=== PATIENT | female | born 1955 | race Caucasian/White ===

== ENCOUNTER → 2016-12-13 | Outpatient (CLI) | payer BC ==
[2014-02-02 15:15] VITALS: BP 140/68
--- NOTE | 2016-12-13 09:20 | KCIC ---
PQRS Compliance Statement: One or more of the following individualized dose reduction techniques were utilized for this examination: 1. Automated exposure control 2. Adjustment of the mA and/or kV according to patient size 3. Use of iterative reconstruction technique Neck CT without contrast: 12/13/2016 Indication: Right neck lymphadenopathy. Technique: Multiple axial images were obtained through the neck without intravenous injection of contrast material. Comparison: None. Findings: Evaluation is limited by lack of intravenous contrast. There is a right level 3 cervical lymph node measuring 1.6 x 1.3 cm. There is a right level 4 lymph node measuring 2.0 x 1.5 cm. There is a right level 5 lymph node measuring 1.7 x 1.4 cm. There is an additional right level 5 lymph node measuring 1.7 x 1.4 cm. No cystic or necrotic changes are identified. No suggestion of extracapsular spread. There is a right superior paratracheal lymph node measuring 1.9 x 1.5 cm (series 2, image 76). There is a prevascular lymph node which measures 3.0 x 2.2 cm. There is masslike consolidation in the left upper lobe which measures 7.2 x 2.2 cm. This may represent a single consolidative mass versus mass with adjacent postobstructive atelectasis. There is mild cervical spondylosis. No suspicious osseous lesion is identified. The visualized brain parenchyma appears intact. The skull base is normal. The visualized paranasal sinuses and orbital contents are normal. The sella turcica and cavernous sinus regions appear intact. The mastoid air cells are normal. The fossa of Rosenmuller is normal. The parotid space contents and software configuration engineer space contents appear intact. The parapharyngeal spaces are normal. The submandibular and sublingual space contents appear intact. The epiglottis, aryepiglottic folds, and piriform sinuses are normal. The vallecula appears normal. The larynx and trachea are normal. The thyroid lobes appear intact. Impression: There is a 7.2 x 2.2 cm masslike area of consolidation in the left upper lobe which may represent a primary lung malignancy versus metastatic disease. There may be postobstructive atelectasis associated with the mass. There is prevascular, superior mediastinal, and right level 3, 4 and 5 cervical lymph nodes suspicious for khari metastasis. Critical results were discussed with the JUANA at Dr. Harmon's office at 9:10 AM on 12/13/2016. Electronically signed by: Loli Espinoza MD (12/13/2016 9:17 AM) [place] [id number]
== END | disposition home or self-care (01) ==
LOC: KCIC CT 08:13
PROVIDERS: ATTEND Family Medicine
DX: R59.1 Generalized enlarged lymph nodes (principal)
CPT/HCPCS: 70490

== ENCOUNTER 2017-01-09 09:56 | Day surgery (SDC) | payer BC ==
[~2017-01-09] VITALS: Ht 160 cm; Wt 83.5 kg
[~2017-01-09 09:56] MED LIST: ACET325T9 PO; ASPI325T8 PO; CHOL10003 PO; COLE625T12 PO; DOCU100T11 PO; GEMF600T3 PO; HYDR12.53 PO; HYDROmorphone 2 MG/ML VIAL IV PRN; IBUP100O24 PO; IV RINGERS,LACTATED 1000ML 1,000 ML IV SCH; LIDOCAINE 1% PF 2 ML VIAL. ID PRN; METF500T4 PO; MORPHINE SULFATE 2 MG/ML DISP.SYRIN. IV PRN; OMEG1CAP27 PO; ONDANSETRON PF 4 MG/2 ML VIAL. IV PRN; PROCHLORPERAZINE 10 MG/2 ML VIAL. IV PRN; SIMV10TA PO; fentaNYL PF VIAL 100 MCG/2 ML VIAL IV PRN
[2017-01-09] MEDS ORDERED: LIDOCAINE 2% PF Vial for OR 5 ML VIAL. ONE (11:02)
[2017-01-09] MEDS ORDERED: SEVOFLURANE 31 TO 60 MINUTES. IH ONE (11:02)
[2017-01-09] MEDS ORDERED: PROPOFOL 20 ML IV ONE (11:02)
[2017-01-09] MEDS ORDERED: BUPIVACAINE-EPI 0.25%-1:200000 50 ML VIAL. ONE (11:15)
[2017-01-09] MEDS ORDERED: DEXAMETHASONE SOD PHOS 20 MG/5 ML VIAL. ONE (11:50)
[2017-01-09] MEDS ORDERED: ONDANSETRON PF 4 MG/2 ML VIAL. ONE (11:50)
[2017-01-09] MEDS ORDERED: fentaNYL PF VIAL 100 MCG/2 ML VIAL ONE (12:04)
--- NOTE | 2017-01-09 12:19 | PDOC4 ---
Operative Note Operative Note Date: 01/09/2017 Preoperative diagnosis: Right neck mass Postoperative diagnosis: Same Procedure: Excision of mass Surgeon: Teodoro Specimen: Right neck lymph nodes Dictation: Patient is a 61 -year-old female long-term smoker found to have a mass within her lungs by CT scan also found to have enlarged lymph nodes or mass in the right neck procedure of excision of mass was explained to the patient detail was benefits were also discussed including bleeding infection alternatives to this procedure also discussed with the patient seemed understanding gave both verbal and written consent to have the procedure performed. Patient was taken to the operating room placed the supine position anesthesia was initiated and the patient was intubated with LMA her head was turned to the left exposing the right neck. Right neck was prepped and draped usual sterile fashion using ChloraPrep and area over the mass was injected with quarter percent Marcaine with epinephrine incision made 15 blade scalpel was carried down through the subcutaneous tissue using the cautery right hemostasis to the mass which was palpable. The mesh was excised sharply with scissors and electrocautery they're essentially 3 enlarged lymph nodes which were sent for pathology. Wound was irrigated and suctioned dry states deemed appropriate and the wound was closed in 2 layers a deep layer running 3-0 Vicryl and the skin was approximate 4 septic Monocryl Mastisol Steri-Strips and and island dressing were applied. Patient was waken next made in the operating room taken recovery in stable condition all sponge instrument needle counts listed as correct estimated blood loss 5 mL. Once in the stomach comes on the dictated op procedure on patient Faye Ramirez thank you VALENCIA MCCOY MD Jan 09, 2017 12:19
--- NOTE | 2017-01-09 12:20 | DISCH ---
DISCHARGE INSTRUCTIONS Condition on Discharge Condition on Discharge: Stable Activity After Discharge Activity Instructions for Disc: No restrictions Diet after Discharge Diet after Discharge: Regular Wound Incision Care Other wound/incision instructi: May shower in 24 hours Contacting the after DC Call your doctor for: If your condition worsens Follow-Up Follow up with: Dr Mccoy in 2 weeks VALENCIA MCCOY MD Jan 09, 2017 12:20
[2017-01-09 13:00] VITALS: BP 149/71
--- NOTE | 2017-01-11 13:38 | PATHOLOGY ---
PATHOLOGY REPORT * * * * * * * * FINAL DIAGNOSIS: Lymph nodes, right neck mass excisional biopsy: - METASTATIC ADENOCARCINOMA, MODERATELY DIFFERENTIATED. SEE COMMENT. COMMENT: Sections of the four lymph nodes appear similar and show extensive replacement by metastatic adenocarcinoma. The malignant glands are lined by columnar cells having ample amounts of pale vacuolated cytoplasm. The tumor cells have fairly uniform subnuclear vacuoles and also show supranuclear vacuoles. The malignant cells have enlarged, rounded to ovoid nuclei containing small nucleoli. There are focal areas of tumor necrosis. Mitotic figures are readily demonstrated. A limited panel of immunoperoxidase stains is obtained and yields the following results: Cytokeratin 7 (A3): Tumor cells positive Cytokeratin 20 (A3): Tumor cells negative Napsin A (A3): Tumor cells positive TTF-1 (A3): Tumor cells positive CDX2 (A3): Tumor cells negative CA125 (A3): Tumor cells negative The morphologic and immunophenotypic findings are supportive of the diagnosis of metastatic adenocarcinoma of pulmonary origin. The case is also examined by Dr. Aram Castrejon, who concurs with the diagnosis. (JPM:mgcarmen/evelyn; 01/11/2017) Special Stains: Immunoperoxidase stains for cytokeratin 7, cytokeratin 20, Napsin A, TTF-1, CDX2, and CA125 PROCEDURE REPORT (Order Date: 01/22/2017 00:00) COMMENT: The slides were marked for testing, and sent at the request of Dr. Pineda Oglesby. PD-L1 testing was performed by [facility] on block A3. Please see SCANNED IMAGES under LABORATORY for separate report of results. (JPM:ecc; d/t: 01/26/2017) PATHOLOGIST: Casimiro Langford M.D. REPORT ELECTRONICALLY SIGNED BY: Casimiro Langford M.D. DATE/TIME: 01/26/2017 15:47 PROCEDURE REPORT (Order Date: 01/23/2017 00:00) COMMENT: The slides were marked for testing, and sent at the request of Dr. Pineda Oglesby. ALK testing was performed by [facility] on block A3. Please see SCANNED IMAGES under LABORATORY for separate report of results. (IUV:amj; d/t: 01/30/2017) PATHOLOGIST: Stephanie Sanches M.D. REPORT ELECTRONICALLY SIGNED BY: Stephanie Sanches M.D. DATE/TIME: 01/30/2017 08:56 PROCEDURE REPORT (Order Date: 01/23/2017 00:00) COMMENT: The slides were marked for testing, and sent at the request of Dr. Pineda Oglesby. EGFR testing was performed by [facility] on block A3. Please see SCANNED IMAGES under LABORATORY for separate report of results. (IUV:amj; d/t: 01/30/2017) PATHOLOGIST: Stephanie Sanches M.D. REPORT ELECTRONICALLY SIGNED BY: Stephanie Sanches M.D. DATE/TIME: 01/30/2017 08:57 PROCEDURE REPORT (Order Date: 01/23/2017 00:00) COMMENT: The slides were marked for testing, and sent at the request of Dr. Pineda Oglesby. ROS1 testing was performed by [facility] on block A3. Please see SCANNED IMAGES under LABORATORY for separate report of results. (IUV:amovi; d/t: ) PATHOLOGIST: Stephanie Sanches M.D. REPORT ELECTRONICALLY SIGNED BY: Stephanie Sanches M.D. DATE/TIME: 01/30/2017 08:59 PROCEDURE REPORT (Order Date: 01/23/2017 00:00) COMMENT: The slides were marked for testing, and sent at the request of Dr. Pineda Oglesby. BRAF testing was performed by [facility] on block A3. Please see SCANNED IMAGES under LABORATORY for separate report of results. (IUV:amovi; d/t: 02/01/2017) PATHOLOGIST: Stephanie Sanches M.D. REPORT ELECTRONICALLY SIGNED BY: Stephanie Sanches M.D. DATE/TIME: 02/01/2017 09:13 REPORT ELECTRONICALLY SIGNED BY: Casimiro Langford M.D. DATE/TIME: 01/11/2017 13:37 * * * * * * * * GROSS PATHOLOGY: The specimen is received fresh, designated "Faye Delaney, right neck mass" and consists of four, rounded, rubbery firm segments of bright reddish brown focally nodular tissue. The segments show focal adherent pale yellow brown fatty tissue. The fatty tissue is trimmed away. The lymph nodes range from 0.9 up to 2.8 cm in maximum dimensions. Sectioning reveals a ruiz white, gritty appearing cut surface. Touch preparations are made from the largest two lymph nodes. Impact Hammer Operator sections from the lymph nodes are submitted in cassettes A1 through A3, with cassette A3 containing associate financial representative sections from two separate lymph nodes. (JPM; 01/09/17) INITIAL CPT CODE(S): A; 92718, 74338, 63590, 99352, 39909, 98229, 13074, 19614, 97014(2), 52788, 44564, 32576, 52150(2), 28253 Professional services performed [place] [facility] [address] Technical services performed by [facility] at [address] [place] [address], [facility] [address], [place] [address]. SPECIMEN(S) RECEIVED: A.Right neck mass CLINICAL HISTORY: Cervical lymphadenopathy, lung mass PATIENT: FAYE DELANEY /AGE: 406/16/1949 (Age: 67) PATIENT #: [id number] ALT CASE #: SPECIMEN COLLECTION DATE: 01/09/2017 SPECIMEN RECEIVED DATE: 01/09/2017 [facility] - [address] [place] [address] - PHONE: [phone] * * * END OF REPORT * * *
[2017-02-01] MEDS ORDERED: EZET1TAB35 PO (15:19)
[2017-02-01] MEDS ORDERED: ACET500T68 PO (15:19)
[2017-02-01] MEDS ORDERED: HYDR25TA9 PO (15:19)
== END 2017-01-09 13:14 | disposition home or self-care (01) ==
LOC: SURG 09:56
PROVIDERS: ATTEND Surgery
DX: C77.0 Secondary and unspecified malignant neoplasm of lymph nodes of head, face and neck (principal); C34.90 Malignant neoplasm of unspecified part of unspecified bronchus or lung; E78.00 Pure hypercholesterolemia, unspecified; I10 Essential (primary) hypertension; E11.9 Type 2 diabetes mellitus without complications; F17.210 Nicotine dependence, cigarettes, uncomplicated; M19.90 Unspecified osteoarthritis, unspecified site; Z88.2 Allergy status to sulfonamides; Z88.8 Allergy status to other drugs, medicaments and biological substances
CPT/HCPCS: 38500; 82962; 88305; 88341; 88342; J0690; J1100; J2405; J2704; J3010; 36415; 81325; 88271; 88275; 88360; 81235; J2001

== ENCOUNTER → 2017-02-01 | Outpatient (CLI) | payer BC ==
[2017-01-09 13:00] VITALS: BP 149/71
[~2017-02-01] MED LIST changes: +ACET500T68 PO; +EZET1TAB35 PO; +HYDR25TA9 PO; -HYDROmorphone 2 MG/ML VIAL IV PRN; -IV RINGERS,LACTATED 1000ML 1,000 ML IV SCH; -LIDOCAINE 1% PF 2 ML VIAL. ID PRN; -MORPHINE SULFATE 2 MG/ML DISP.SYRIN. IV PRN; -ONDANSETRON PF 4 MG/2 ML VIAL. IV PRN; -PROCHLORPERAZINE 10 MG/2 ML VIAL. IV PRN; -fentaNYL PF VIAL 100 MCG/2 ML VIAL IV PRN
--- NOTE | 2017-02-01 14:11 | RAD ---
FDG tumor localization scan, PET/CT, 02/01/2017: History: Initial staging of lung cancer Following IV injection of 12.1 mCi of 18 F-FDG, imaging was performed from the skull base to the proximal thighs. The noncontrast CT component was performed for attenuation correction and anatomic localization purposes rather than for primary diagnosis. The patient's blood glucose level at time of injection was 95 MG/DL. There is a large irregular soft tissue mass centered in the medial aspect of the left upper lobe. It extends down to the level of the hilum. This mass is hypermetabolic with a maximum SUV of 16. There is extensive hypermetabolic adenopathy in the mediastinum including a 4.7 cm subcarinal node demonstrate a maximum SUV of 7.5. There are mildly enlarged hypermetabolic lymph nodes in the lower neck, more so on the right. There is a small hypermetabolic subclavian region lymph node on the left. There are small hypermetabolic pleural or subpleural nodules present posteromedially in the mid chest. There is a 6 cm hypermetabolic left adrenal mass. It demonstrates a maximum SUV of approximately 17. There are small hypermetabolic retrocrural, para-aortic and pericaval lymph nodes in the abdomen. A small hypermetabolic mesenteric lymph node is present in the right lower quadrant. The uterus is lobulated in in contour, probably due to fibroids. It is not hypermetabolic. Incidental findings include the presence of cholelithiasis. There is a small umbilical hernia containing only fat. A small amount of pericardial fluid is present. IMPRESSION: 1. Large hypermetabolic left upper lobe pulmonary mass compatible with a primary lung malignancy. 2. Mediastinal, lower cervical, retrocrural, retroperitoneal and mesenteric hypermetabolic adenopathy on a metastatic basis. 3. Large hypermetabolic left adrenal mass presumably on a metastatic basis.
== END | disposition home or self-care (01) ==
LOC: PETSC 11:04
PROVIDERS: ATTEND Internal Medicine Hematology & Oncology
DX: C34.12 Malignant neoplasm of upper lobe, left bronchus or lung (principal); C79.72 Secondary malignant neoplasm of left adrenal gland; K80.20 Calculus of gallbladder without cholecystitis without obstruction; K42.9 Umbilical hernia without obstruction or gangrene; E27.9 Disorder of adrenal gland, unspecified
CPT/HCPCS: 78815; A9552

== ENCOUNTER → 2017-02-02 | Outpatient (CLI) | payer BC ==
[2017-01-09 13:00] VITALS: BP 149/71
[~2017-02-02] MED LIST changes: +GADOBUTROL 7.5 MMOL/7.5 ML VIAL IV ONE
--- NOTE | 2017-02-02 11:39 | RAD ---
EXAM: Brain MRI with and without contrast. HISTORY: Lung cancer staging. TECHNIQUE: Multiplanar, multisequence magnetic resonance imaging of the brain was performed prior to and following the administration of 7.5 cc Gadavist intravenous contrast. COMPARISON: None. FINDINGS: There is no restricted diffusion to suggest acute or subacute infarction. There is no susceptibility effect to suggest hemorrhage. There is no mass effect or midline shift. There is no hydrocephalus. There are few tiny scattered foci of T2/FLAIR hyperintensity within the cerebral white matter, a nonspecific finding. The orbits are unremarkable. There is mild posterior left ethmoid sinus mucosal thickening. The mastoid air cells are clear. There are normal flow voids within the cerebral vessels. No suspicious enhancing lesion is seen. IMPRESSION: 1. No acute intracranial finding or evidence of intracranial metastatic disease. 2. Few tiny foci of signal change within the cerebral white matter, a nonspecific finding which is most commonly seen with chronic small vessel disease or chronic migraine headaches. Electronically signed by: Annette Solomon MD (02/02/2017 11:37 AM) [id number]
== END | disposition home or self-care (01) ==
LOC: MRI 09:55
PROVIDERS: ATTEND Internal Medicine Hematology & Oncology
DX: C34.12 Malignant neoplasm of upper lobe, left bronchus or lung (principal); G43.909 Migraine, unspecified, not intractable, without status migrainosus; I73.9 Peripheral vascular disease, unspecified
CPT/HCPCS: 70553; A9585

== ENCOUNTER → 2017-05-07 | Outpatient (CLI) | payer BC ==
[2017-05-07] MEDS: IOHEXOL 300 MG/ML 100ML VIAL. IV (11:33)
[2017-05-07] MEDS: IOHEXOL 240 MG/ML 50ML VIAL. PO (11:33)
== END | disposition home or self-care (01) ==
LOC: CT 09:55
DX: C34.12 Malignant neoplasm of upper lobe, left bronchus or lung (principal); E27.9 Disorder of adrenal gland, unspecified; N20.0 Calculus of kidney; K43.9 Ventral hernia without obstruction or gangrene; I10 Essential (primary) hypertension; E11.9 Type 2 diabetes mellitus without complications; Z87.891 Personal history of nicotine dependence; Z79.01 Long term (current) use of anticoagulants
CPT/HCPCS: 71260; 74177; Q9966; Q9967

== ENCOUNTER → 2017-07-10 | Outpatient (CLI) | payer BC ==
[2017-07-10 09:22] LABS: MEAN CORPUSCULAR HGB CONC 35 g/dL (31-37)
[2017-07-10 09:31] LABS: HEMATOCRIT 16.7 % (36.0-47.0); HEMOGLOBIN 5.7 g/dL (12.0-15.5)
[2017-07-10] MEDS: ACETAMINOPHEN 325 MG TABLET. PO (09:39)
[2017-07-10] MEDS: diphenhydrAMINE HCL 25 MG CAPSULE PO (09:39)
[2017-07-10 09:54] LABS: IMMEDIATE SPIN CROSSMATCH 1 2
[2017-07-10] MEDS: FUROSEMIDE 20 MG/2 ML VIAL. IVP (10:57)
== END | disposition home or self-care (01) ==
LOC: OPS 08:05
PROVIDERS: Neurological Surgery
DX: C34.12 Malignant neoplasm of upper lobe, left bronchus or lung (principal); C77.0 Secondary and unspecified malignant neoplasm of lymph nodes of head, face and neck; N20.0 Calculus of kidney; I10 Essential (primary) hypertension; E11.9 Type 2 diabetes mellitus without complications; E78.00 Pure hypercholesterolemia, unspecified; Z87.891 Personal history of nicotine dependence; Z79.01 Long term (current) use of anticoagulants
CPT/HCPCS: 36415; 36430; 85014; 85018; 86850; 86900; 86901; 86920; 96374; P9016; Q0163

== ENCOUNTER → 2017-07-19 | Outpatient (CLI) | payer BC ==
[2017-07-19] MEDS: IOHEXOL 300 MG/ML 100ML VIAL. IV (10:47)
[2017-07-19] MEDS: IOHEXOL 240 MG/ML 50ML VIAL. PO (10:47)
== END | disposition home or self-care (01) ==
LOC: CT 09:11
DX: C34.12 Malignant neoplasm of upper lobe, left bronchus or lung (principal); N83.202 Unspecified ovarian cyst, left side; E27.9 Disorder of adrenal gland, unspecified; I10 Essential (primary) hypertension; E11.9 Type 2 diabetes mellitus without complications; Z87.891 Personal history of nicotine dependence
CPT/HCPCS: 71260; 74177; Q9966; Q9967

== ENCOUNTER → 2017-10-12 | Outpatient (CLI) | payer BC ==
[2017-10-08 16:53] VITALS: BP 121/60
[~2017-10-12] MED LIST changes: +CONTRAST GIVEN. MC PRN; +CYCL10TA2 PO; +DEXA4TAB PO; +FOLI1TAB16 PO; -GADOBUTROL 7.5 MMOL/7.5 ML VIAL IV ONE; -IBUP100O24 PO; +IBUP100O25 PO; +IOHEXOL 240 MG/ML 50ML VIAL. PO ONE; +IOHEXOL 300 MG/ML 100ML VIAL. IV ONE; -METF500T4 PO; +METF500T5 PO; +ONDA4TAB12 PO; +SUCR1TAB PO
--- NOTE | 2017-10-12 13:09 | RAD ---
Examination: CT chest abdomen pelvis with contrast HISTORY: History of lung cancer follow-up COMPARISON: 07/19/2017 TECHNIQUE: Axial CT images of the chest abdomen pelvis were performed with IV contrast. Coronal and sagittal reformats are performed Exposure: One or more of the following individualized dose reduction techniques were utilized for this examination: 1. Automated exposure control 2. Adjustment of the mA and/or kV according to patient size 3. Use of iterative reconstruction technique FINDINGS: There are multiple enlarged superior mediastinal and supraclavicular lymph nodes again identified with conglomeration. The right pretracheal lymph node just adjacent to the superior vena cava measures 2.3 cm which are increased compared to prior exam. Measured 2.0 cm. The subcarinal lymph node now measures 5.0 cm compared to prior exam where it measured 4.7 cm. Large left hilar mass is again identified encasing the left main pulmonary artery and the left upper lobe and left lower lobe bronchial branches. There is narrowing of the left upper lobe bronchial branches. There is mild increase in multiple mediastinal lymph nodes compared to prior exam. The suprahilar portion of the mass measuring 6.5 cm in AP dimension which is increased compared to prior exam where it measured 5.5 cm. Emphysematous changes identified in the lungs. No evidence of pleural effusion or pneumothorax. The right hilar lymph nodes now measure 2.8 cm compared to prior exam where it measured 2.5 cm. The visualized liver, spleen, grossly appears unremarkable. 2 left adrenal masses are again identified in the superior hypodense mass measures 2.4 cm in the inferior hypodense mass measures 2.7 cm these are similar to prior exam. There is a large fatty mass identified in the right adrenal gland likely an adrenal myelolipoma measuring 6.1 cm. The bilateral kidneys enhance symmetrically. Punctate intrarenal collecting system calculi identified in the left kidney the largest measuring 4 mm in the inferior pole. The visualized pancreas grossly appears unremarkable the gallbladder is mildly distended. Multiple gallstones identified within the gallbladder. The small bowel is nondilated. The appendix is normal. Feces and gas noted in the colon. There is a large cystic density identified in the pelvis measuring 7.9 x 8.2 cm slightly increased compared to prior exam where it measured 7.3 x 7.8 cm could be ovarian cyst or cystic mass. The urinary bladder is mildly distended. Small cystic structures identified in the left kidney similar to prior exam probably cyst. Severe aortic atherosclerosis Small fat-containing umbilical hernia. Moderate degenerative changes thoracolumbar spine. IMPRESSION: 1. Interval mild increase in size of the left lung hilar mass and interval increase in size of the mediastinal lymph nodes suspicious for progression of malignancy/metastasis. PET/CT would be useful for further evaluation. 2. Unchanged left adrenal masses/metastasis. 3. Large adrenal myelolipoma unchanged. 4. Interval mild increase in size of the cystic density in the pelvis probably left ovarian cyst or cystic lesion. Ultrasound or MRI of the pelvis can be considered. 5. Cholelithiasis. Electronically signed by: Boone Cruz MD (10/12/2017 1:06 PM) [id number]
== END | disposition home or self-care (01) ==
LOC: CT 10:19
PROVIDERS: ATTEND Internal Medicine Hematology & Oncology
DX: C34.12 Malignant neoplasm of upper lobe, left bronchus or lung (principal); C79.72 Secondary malignant neoplasm of left adrenal gland; K80.80 Other cholelithiasis without obstruction; D17.79 Benign lipomatous neoplasm of other sites; I70.0 Atherosclerosis of aorta; K42.9 Umbilical hernia without obstruction or gangrene; M47.895 Other spondylosis, thoracolumbar region; K82.8 Other specified diseases of gallbladder; I10 Essential (primary) hypertension; E11.9 Type 2 diabetes mellitus without complications; E78.5 Hyperlipidemia, unspecified; K21.9 Gastro-esophageal reflux disease without esophagitis; G43.909 Migraine, unspecified, not intractable, without status migrainosus; E78.00 Pure hypercholesterolemia, unspecified; Z79.01 Long term (current) use of anticoagulants; Z80.41 Family history of malignant neoplasm of ovary; Z86.2 Personal history of diseases of the blood and blood-forming organs and certain disorders involving the immune mechanism; Z87.891 Personal history of nicotine dependence; Z88.1 Allergy status to other antibiotic agents; Z88.2 Allergy status to sulfonamides; Z88.8 Allergy status to other drugs, medicaments and biological substances
CPT/HCPCS: 71260; 74177; Q9966; Q9967

== ENCOUNTER → 2017-10-19 | Outpatient (CLI) | payer BC ==
[2017-10-08 16:53] VITALS: BP 121/60
[~2017-10-19] MED LIST changes: -CONTRAST GIVEN. MC PRN; -IOHEXOL 240 MG/ML 50ML VIAL. PO ONE; -IOHEXOL 300 MG/ML 100ML VIAL. IV ONE
--- NOTE | 2017-10-19 18:55 | RAD ---
PELVIS COMPLETE Clinical Indication: DX: Abnormal CT scan 10-12-17; Bilat adnexal lesions Comparison: CT chest abdomen and pelvis with contrast, October 12, 2017. FDG PET/CT, skull base to upper thighs, February 01, 2017. TECHNIQUE: Real-time ultrasound imaging of the pelvis using transabdominal window is performed. Findings: Endometrial stripe measures 2 mm, normal. Uterus measures 8.6 x 4.5 x 2.3 cm. No focal abnormality in the uterus. Urinary bladder is unremarkable. There is a large cystic mass of the left adnexa measuring 8.6 x 7.2 x 6.9 cm. There is a solid right adnexal mass measuring 3 x 2.3 x 3.1 cm. Ovaries are not seen separate from these structures. Right adnexal mass may be the ovary. The CT appearance is stable on multiple prior studies. Right adnexal mass was not FDG avid on prior PET. No pelvic free fluid. IMPRESSION: Large left adnexal cyst is similar in size to multiple prior CT scans. No pelvic free fluid. Ovarian cystadenoma is primary consideration. Cystic malignancy is considered less likely. Electronically signed by: Regan Lomeli MD (10/19/2017 6:51 PM) [id number]
== END | disposition home or self-care (01) ==
LOC: US 11:56
PROVIDERS: ATTEND Internal Medicine Hematology & Oncology
DX: D27.1 Benign neoplasm of left ovary (principal); I10 Essential (primary) hypertension; E11.9 Type 2 diabetes mellitus without complications; E78.00 Pure hypercholesterolemia, unspecified; E78.5 Hyperlipidemia, unspecified; K21.9 Gastro-esophageal reflux disease without esophagitis; G43.909 Migraine, unspecified, not intractable, without status migrainosus; Z79.82 Long term (current) use of aspirin; Z86.2 Personal history of diseases of the blood and blood-forming organs and certain disorders involving the immune mechanism; Z87.891 Personal history of nicotine dependence; Z80.41 Family history of malignant neoplasm of ovary
CPT/HCPCS: 76856

== ENCOUNTER 2017-10-27 14:05 | Inpatient (IN) | payer BC ==
[2017-10-27] VITALS (7 sets, daily range): BP systolic 89–116; BP diastolic 55–67
[~2017-10-27] VITALS: Ht 160 cm; Wt 69.6 kg
[2017-10-27 15:30] LABS: PROTHROMBIN TIME PATIENT 16.5 SEC (11.7-14.0)
[2017-10-27 15:33] LABS: BASO % 1 % (0-3); EOS % 3 % (0-3); LYMPH # 0.2 x10^3/uL (1.0-4.8); LYMPH % 19 % (24-48); MEAN CORPUSCULAR HEMOGLOBIN 34 pg (25-35); MEAN CORPUSCULAR HGB CONC 35 g/dL (31-37); MEAN CORPUSCULAR VOLUME 98 fL (79-100); MONO # 0.1 x10^3/uL (0.0-1.1); MONO % 7 % (0-9); NEUT # 0.7 x10^3uL (1.8-7.7); NEUT % 70 % (31-73); RED CELL DISTRIBUTION WIDTH 25.3 % (11.5-14.5)
--- NOTE | 2017-10-27 15:36 | RAD ---
Exam: AP portable chest History: Lung cancer, fever. Comparison: November 03, 2013. Findings: Cardiac silhouette appears within normal limits for size. There is convexity to bilateral aspects of the upper mediastinum, compatible with lymphadenopathy as well as left upper lobe mass. Subtle, patchy density is seen at the right lung base. No pneumothorax or pleural effusion is appreciated. Impression: 1. Question mild infiltrate at the right lung base. 2. Mediastinal lymphadenopathy. Large left upper lobe mass. Electronically signed by: Khai Kaur MD (10/27/2017 3:33 PM) [facility] [place]
[2017-10-27 15:39] LABS: CALCIUM 8.9 mg/dL (8.5-10.1); CREATININE 0.8 mg/dL (0.6-1.0); GFR 72.9; POTASSIUM 3.9 mmol/L (3.5-5.1)
[2017-10-27] MEDS ORDERED: PANTOPRAZOLE IV PUSH 40 MG VIAL. IVP ONE (15:45)
[2017-10-27 15:52] LABS: HEMATOCRIT 16.7 % (36.0-47.0); HEMOGLOBIN 5.8 g/dL (12.0-15.5); PLATELET COUNT 13 x10^3/uL (140-400)
[2017-10-27 15:53] LABS: ALBUMIN 2.9 g/dL (3.4-5.0); ALBUMIN/GLOBULIN RATIO 0.9 (1.0-1.7); TOTAL BILIRUBIN 0.5 mg/dL (0.2-1.0)
[2017-10-27] MEDS ORDERED: IV NORMAL SALINE 1000ML BAG 1,000 ML IV SCH (15:53)
--- NOTE | 2017-10-27 16:14 | PHYS DOC ---
Past Medical History Past Medical History: Anemia, Cancer, Diabetes-Type II, High Cholesterol, Hypertension, Other Additional Past Medical Histor: hemorrhoids, back spasms Past Surgical History: Other Additional Past Surgical Histo: addrenalglad biops Alcohol Use: None Drug Use: None Adult General Chief Complaint Chief Complaint: WEAKNESS/GENERALIZED HPI HPI Patient is a 62 year old female with a history of lung cancer which presenting with generalized weakness. Patient has been feeling weak for the last several days worse this morning she last had chemotherapy 8 days ago she did notice a small amount of blood on the toilet paper incontinence like surrounding some of the stool but the stool was brown urinating just fine no abdominal pain no chest pain no headache just feeling very weak overall. Dr. Asuncion Meier is her oncologist she last had Review of Systems Review of Systems Constitutional: Denies fever or chills [] Cardiovascular: No additional information not addressed in HPI [] : Denies dysuria or hematuria [] Musculoskeletal: Denies back pain or joint pain [] Integument: Denies rash or skin lesions [] Neurologic: Denies headache, focal weakness or sensory changes [] All other systems were reviewed and found to be within normal limits, except as documented in this note. Current Medications Current Medications Current Medications Medications (Trade) Dose Ordered Sig/Pelon Start Time Stop Time Status Last Admin Dose Admin Pantoprazole Sodium (PROTONIX VIAL for IV PUSH) 80 mg 1X ONCE 10/27/17 15:45 10/27/17 15:46 DC 10/27/17 16:02 80 MG Allergies Allergies Allergies Coded Allergies Type Severity Reaction Last Updated Verified Sulfa (Sulfonamide Antibiotics) Allergy Intermediate rash 10/08/17 No doxycycline Allergy Intermediate Hives 10/08/17 Yes niacin Allergy Intermediate rash 10/08/17 No Physical Exam Physical Exam Constitutional: Well developed, cachectic with ecchymosis throughout the entire skin HENT: Normocephalic, atraumatic, bilateral external ears normal, oropharynx moist, no oral exudates, nose normal. [] Eyes: PERRLA, EOMI, conjunctiva normal, no discharge. [] Neck: Normal range of motion, no tenderness, supple, no stridor. [] Cardiovascular:Heart rate regular rhythm, 2/6 systolic murmur noted Lungs & Thorax: Bilateral breath sounds clear to auscultation [] Abdomen: Bowel sounds normal, soft, no tenderness, no masses, no pulsatile masses. [] Skin: Cachectic with ecchymosis throughout. RECRTAL: Deferred due to the white blood cell count Neurologic: Alert and oriented X 3, normal motor function, normal sensory function, no focal deficits noted. [] Psychologic: Affect normal, judgement normal, mood normal. [] Current Patient Data Vital Signs Vital Signs Date Time Temp Pulse Resp B/P (MAP) Pulse Ox O2 Delivery O2 Flow Rate FiO2 10/27/17 15:49 97 98 10/27/17 14:25 98.3 16 126/80 (95) Room Air 98.3 Lab Values Laboratory Tests Test 10/27/17 15:02 White Blood Count 1.0 x10^3/uL (4.0-11.0) *L Red Blood Count 1.70 x10^6/uL (3.50-5.40) L Hemoglobin 5.8 g/dL (12.0-15.5) *L Hematocrit 16.7 % (36.0-47.0) *L Mean Corpuscular Volume 98 fL (79-100) Mean Corpuscular Hemoglobin 34 pg (25-35) Mean Corpuscular Hemoglobin Concent 35 g/dL (31-37) Red Cell Distribution Width 25.3 % (11.5-14.5) H Platelet Count 13 x10^3/uL (140-400) *L Neutrophils (%) (Auto) 70 % (31-73) Lymphocytes (%) (Auto) 19 % (24-48) L Monocytes (%) (Auto) 7 % (0-9) Eosinophils (%) (Auto) 3 % (0-3) Basophils (%) (Auto) 1 % (0-3) Neutrophils # (Auto) 0.7 x10^3uL (1.8-7.7) L Lymphocytes # (Auto) 0.2 x10^3/uL (1.0-4.8) L Monocytes # (Auto) 0.1 x10^3/uL (0.0-1.1) Eosinophils # (Auto) 0.0 x10^3/uL (0.0-0.7) Basophils # (Auto) 0.0 x10^3/uL (0.0-0.2) Platelet Estimate Pending Prothrombin Time 16.5 SEC (11.7-14.0) H Prothrombin Time INR 1.4 (0.8-1.1) H Sodium Level 136 mmol/L (136-145) Potassium Level 3.9 mmol/L (3.5-5.1) Chloride Level 103 mmol/L (98-107) Carbon Dioxide Level 22 mmol/L (21-32) Anion Gap 11 (6-14) Blood Urea Nitrogen 23 mg/dL (7-20) H Creatinine 0.8 mg/dL (0.6-1.0) Estimated GFR (Cockcroft-Gault) 72.9 BUN/Creatinine Ratio 29 (6-20) H Glucose Level 136 mg/dL (70-99) H Lactic Acid Level 1.7 mmol/L (0.4-2.0) Calcium Level 8.9 mg/dL (8.5-10.1) Total Bilirubin 0.5 mg/dL (0.2-1.0) Aspartate Amino Transferase (AST) 28 U/L (15-37) Alanine Aminotransferase (ALT) 23 U/L (14-59) Alkaline Phosphatase 147 U/L (46-116) H Troponin I Quantitative < 0.017 ng/mL (0.000-0.055) Total Protein 6.0 g/dL (6.4-8.2) L Albumin 2.9 g/dL (3.4-5.0) L Albumin/Globulin Ratio 0.9 (1.0-1.7) L Laboratory Tests 10/27/17 15:02 Laboratory Tests 10/27/17 15:02 EKG EKG [] Interpretation Time: EKG shows a normal sinus tachycardia rate of 101 no acute ischemic changes noted this was interpreted by me at time of encounter. Radiology/Procedures Radiology/Procedures [] Impressions: Impression: 1. Question mild infiltrate at the right lung base. 2. Mediastinal lymphadenopathy. Large left upper lobe mass. Electronically signed by: Khai Mireles MD (10/27/2017 3:33 PM) [facility] [place] and SIGNED BY: KHAI MIRELES MD DATE: 10/27/17 9489 Course & Med Decision Making Course & Med Decision Making Pertinent Labs and Imaging studies reviewed. (See chart for details) 62-year-old female who is presenting with generalized weakness she is a cancer patient last chemotherapy was about a week ago she is presenting with pancytopenia no fever Chest x-ray there is a very subtle possible right infiltrate at the lung base I added on IV Zosyn patient did have blood cultures Lactic acid was within normal range. Patient did report some bright red blood per rectum I deferred rectal exam due to her pancytopenia specifically the low white blood cell count. I did place the patient for blood transfusion and ordered IV Protonix as well. There was no melena by history so acute GI BLEED. Seems less likely. I spoke with Dr. DEL ROSARIO PRIOR TO FINAL XRAY patient relations coordinator for the patient's primary doctor patient be admitted for blood transfusion and oncology consultation. Dragon Disclaimer Dragon Disclaimer This electronic medical record was generated, in whole or in part, using a voice recognition dictation system. Departure Departure Impression: Primary Impression: Anemia Additional Impression: Thrombocytopenia Disposition: ADMITTED INPATIENT Admitting Physician: Khai Del Rosario Condition: STABLE Referrals: Keyshawn CARPENTER MD (PCP) Problem Qualifiers THANH NEAL MD Oct 27, 2017 16:14
[2017-10-27] MEDS: PANTOPRAZOLE SODIUM IV DRIP 80 MG in IV NORMAL SALINE 100ML 100 ML IV SCH (16:24)
[2017-10-27 16:32] LABS: % LYMPHS 18 % (24-48); % MONOS 8 % (0-10); % SEGS 74 % (35-66); PLT ESTIMATE DECREASED (ADEQUATE)
[2017-10-27 16:34] LABS: ANISOCYTOSIS MOD; TOXIC GRANULATION MOD
[2017-10-27] MEDS ORDERED: IRON1TAB2 PO (18:22)
[2017-10-27] MEDS ORDERED: CYCL10TA2 PO (18:22)
[2017-10-27] MEDS ORDERED: FERR325T14 PO (18:25)
[2017-10-27] MEDS: PIPERACILLIN/TAZOBACTAM 3.375 GM in IV NORMAL SALINE 50ML 50 ML IV SCH (18:31)
[2017-10-27] MEDS: CYCLOBENZAPRINE 10 MG TABLET. PO SCH (21:49)
[2017-10-27] MEDS: GEMFIBROZIL 600 MG TABLET. PO SCH (21:49)
[2017-10-28] VITALS (21 sets, daily range): BP systolic 89–116; BP diastolic 47–65
[2017-10-28] MEDS: PIPERACILLIN/TAZOBACTAM 3.375 GM in IV NORMAL SALINE 50ML 50 ML IV SCH ×2 (01:39→06:29)
[2017-10-28] MEDS: PANTOPRAZOLE SODIUM IV DRIP 80 MG in IV NORMAL SALINE 100ML 100 ML IV SCH ×2 (03:50→12:15)
[2017-10-28 05:31] LABS: BASO % 0 % (0-3); EOS % 2 % (0-3); LYMPH # 0.5 x10^3/uL (1.0-4.8); LYMPH % 48 % (24-48); MEAN CORPUSCULAR HEMOGLOBIN 34 pg (25-35); MEAN CORPUSCULAR HGB CONC 36 g/dL (31-37); MEAN CORPUSCULAR VOLUME 96 fL (79-100); MONO # 0.1 x10^3/uL (0.0-1.1); MONO % 8 % (0-9); NEUT # 0.4 x10^3uL (1.8-7.7); NEUT % 42 % (31-73); PLATELET COUNT 45 x10^3/uL (140-400); RED CELL DISTRIBUTION WIDTH 16.6 % (11.5-14.5)
[2017-10-28 06:13] LABS: HEMATOCRIT 15.4 % (36.0-47.0); HEMOGLOBIN 5.5 g/dL (12.0-15.5)
--- NOTE | 2017-10-28 09:43 | PDOC ---
PROGRESS NOTES Subjective Subjective Patient without complaint. Denies further rectal bleeding. Denies abdominal pain , cough or SOA. Objective Objective Vital Signs Date Time Temp Pulse Resp B/P (MAP) Pulse Ox O2 Delivery O2 Flow Rate FiO2 10/28/17 09:31 97.4 91 20 94/53 (67) 99 Room Air 97.4 Intake and Output 10/28/17 07:00 Intake Total 780 ml Balance 780 ml Intake Oral 200 ml Blood Product IV Normal Saline Flush 580 ml # Voids 4 Physical Exam Abdomen: Normal bowel sounds, Soft, No tenderness Heart: Regular rate Extremities: No edema General: Alert, Oriented X3, No acute distress Lungs: Other (BS moderately decreased throughout but otherwise CTA, no wheezes , no cough during exam.) Assessment Assessment Problems Medical Problems: (1) Thrombocytopenia Status: Acute Plan Plan of Care 1. Rectal bleeding with pancytopenia - no evidence of further bleeding since admission. Hgb not improved after 1 unit PRBC's so 2nd unit ordered and presently transfusing. Recheck later today and in AM. Patient has not taken daily ASA in months. 2. Stage IV non-small cell lung cancer - still receiving chemotx. Last CT on hospital chart shows mild worsening of tumors. Continue tx as per Oncology. 3. DM2 - diet-controlled for patient at this time. 4. hyperlipidemia - continue home meds. Comment Review of Relevant I have reviewed the following items alma (where applicable) has been applied. Labs Laboratory Tests Test 10/27/17 15:02 10/28/17 04:30 White Blood Count 1.0 x10^3/uL (4.0-11.0) 1.0 x10^3/uL (4.0-11.0) Red Blood Count 1.70 x10^6/uL (3.50-5.40) 1.60 x10^6/uL (3.50-5.40) Hemoglobin 5.8 g/dL (12.0-15.5) 5.5 g/dL (12.0-15.5) Hematocrit 16.7 % (36.0-47.0) 15.4 % (36.0-47.0) Mean Corpuscular Volume 98 fL (79-100) 96 fL (79-100) Mean Corpuscular Hemoglobin 34 pg (25-35) 34 pg (25-35) Mean Corpuscular Hemoglobin Concent 35 g/dL (31-37) 36 g/dL (31-37) Red Cell Distribution Width 25.3 % (11.5-14.5) 16.6 % (11.5-14.5) Platelet Count 13 x10^3/uL (140-400) 45 x10^3/uL (140-400) Neutrophils (%) (Auto) 70 % (31-73) 42 % (31-73) Lymphocytes (%) (Auto) 19 % (24-48) 48 % (24-48) Monocytes (%) (Auto) 7 % (0-9) 8 % (0-9) Eosinophils (%) (Auto) 3 % (0-3) 2 % (0-3) Basophils (%) (Auto) 1 % (0-3) 0 % (0-3) Neutrophils # (Auto) 0.7 x10^3uL (1.8-7.7) 0.4 x10^3uL (1.8-7.7) Lymphocytes # (Auto) 0.2 x10^3/uL (1.0-4.8) 0.5 x10^3/uL (1.0-4.8) Monocytes # (Auto) 0.1 x10^3/uL (0.0-1.1) 0.1 x10^3/uL (0.0-1.1) Eosinophils # (Auto) 0.0 x10^3/uL (0.0-0.7) 0.0 x10^3/uL (0.0-0.7) Basophils # (Auto) 0.0 x10^3/uL (0.0-0.2) 0.0 x10^3/uL (0.0-0.2) Segmented Neutrophils % 74 % (35-66) Lymphocytes % 18 % (24-48) Monocytes % 8 % (0-10) Toxic Granulation Mod Platelet Estimate Decreased (ADEQUATE) Anisocytosis Mod Prothrombin Time 16.5 SEC (11.7-14.0) Prothromb Time International Ratio 1.4 (0.8-1.1) Sodium Level 136 mmol/L (136-145) Potassium Level 3.9 mmol/L (3.5-5.1) Chloride Level 103 mmol/L (98-107) Carbon Dioxide Level 22 mmol/L (21-32) Anion Gap 11 (6-14) Blood Urea Nitrogen 23 mg/dL (7-20) Creatinine 0.8 mg/dL (0.6-1.0) Estimated GFR (Cockcroft-Gault) 72.9 BUN/Creatinine Ratio 29 (6-20) Glucose Level 136 mg/dL (70-99) Lactic Acid Level 1.7 mmol/L (0.4-2.0) Calcium Level 8.9 mg/dL (8.5-10.1) Total Bilirubin 0.5 mg/dL (0.2-1.0) Aspartate Amino Transf (AST/SGOT) 28 U/L (15-37) Alanine Aminotransferase (ALT/SGPT) 23 U/L (14-59) Alkaline Phosphatase 147 U/L (46-116) Troponin I Quantitative < 0.017 ng/mL (0.000-0.055) Total Protein 6.0 g/dL (6.4-8.2) Albumin 2.9 g/dL (3.4-5.0) Albumin/Globulin Ratio 0.9 (1.0-1.7) Laboratory Tests Test 10/27/17 15:02 10/28/17 04:30 White Blood Count 1.0 x10^3/uL (4.0-11.0) 1.0 x10^3/uL (4.0-11.0) Red Blood Count 1.70 x10^6/uL (3.50-5.40) 1.60 x10^6/uL (3.50-5.40) Hemoglobin 5.8 g/dL (12.0-15.5) 5.5 g/dL (12.0-15.5) Hematocrit 16.7 % (36.0-47.0) 15.4 % (36.0-47.0) Mean Corpuscular Volume 98 fL (79-100) 96 fL (79-100) Mean Corpuscular Hemoglobin 34 pg (25-35) 34 pg (25-35) Mean Corpuscular Hemoglobin Concent 35 g/dL (31-37) 36 g/dL (31-37) Red Cell Distribution Width 25.3 % (11.5-14.5) 16.6 % (11.5-14.5) Platelet Count 13 x10^3/uL (140-400) 45 x10^3/uL (140-400) Neutrophils (%) (Auto) 70 % (31-73) 42 % (31-73) Lymphocytes (%) (Auto) 19 % (24-48) 48 % (24-48) Monocytes (%) (Auto) 7 % (0-9) 8 % (0-9) Eosinophils (%) (Auto) 3 % (0-3) 2 % (0-3) Basophils (%) (Auto) 1 % (0-3) 0 % (0-3) Neutrophils # (Auto) 0.7 x10^3uL (1.8-7.7) 0.4 x10^3uL (1.8-7.7) Lymphocytes # (Auto) 0.2 x10^3/uL (1.0-4.8) 0.5 x10^3/uL (1.0-4.8) Monocytes # (Auto) 0.1 x10^3/uL (0.0-1.1) 0.1 x10^3/uL (0.0-1.1) Eosinophils # (Auto) 0.0 x10^3/uL (0.0-0.7) 0.0 x10^3/uL (0.0-0.7) Basophils # (Auto) 0.0 x10^3/uL (0.0-0.2) 0.0 x10^3/uL (0.0-0.2) Segmented Neutrophils % 74 % (35-66) Lymphocytes % 18 % (24-48) Monocytes % 8 % (0-10) Toxic Granulation Mod Platelet Estimate Decreased (ADEQUATE) Anisocytosis Mod Prothrombin Time 16.5 SEC (11.7-14.0) Prothromb Time International Ratio 1.4 (0.8-1.1) Sodium Level 136 mmol/L (136-145) Potassium Level 3.9 mmol/L (3.5-5.1) Chloride Level 103 mmol/L (98-107) Carbon Dioxide Level 22 mmol/L (21-32) Anion Gap 11 (6-14) Blood Urea Nitrogen 23 mg/dL (7-20) Creatinine 0.8 mg/dL (0.6-1.0) Estimated GFR (Cockcroft-Gault) 72.9 BUN/Creatinine Ratio 29 (6-20) Glucose Level 136 mg/dL (70-99) Lactic Acid Level 1.7 mmol/L (0.4-2.0) Calcium Level 8.9 mg/dL (8.5-10.1) Total Bilirubin 0.5 mg/dL (0.2-1.0) Aspartate Amino Transf (AST/SGOT) 28 U/L (15-37) Alanine Aminotransferase (ALT/SGPT) 23 U/L (14-59) Alkaline Phosphatase 147 U/L (46-116) Troponin I Quantitative < 0.017 ng/mL (0.000-0.055) Total Protein 6.0 g/dL (6.4-8.2) Albumin 2.9 g/dL (3.4-5.0) Albumin/Globulin Ratio 0.9 (1.0-1.7) Medications Current Medications Pantoprazole Sodium (PROTONIX VIAL for IV PUSH) 80 mg 1X ONCE IVP Last administered on 10/27/17at 16:02; Start 10/27/17 at 15:45; Stop 10/27/17 at 15:46 ; Status DC Sodium Chloride 1,000 ml @ 75 mls/hr [id number] IV Last administered on at 16:02; Start 10/27/17 at 15:53; Stop 10/28/17 at 09:37; Status DC Pantoprazole Sodium 80 mg/ Sodium Chloride 100 ml @ 10 mls/hr Q10H IV Last administered on 10/28/17at 03:50; Start 10/27/17 at 16:15 Piperacillin Sod/ Tazobactam Sod 3.375 gm/Sodium Chloride 50 ml @ 100 mls/hr Q6HRS IV Last administered on 10/28/17at 06:29; Start 10/27/17 at 18:00; Stop at 09:37; Status DC Cyclobenzaprine HCl (Flexeril) 10 mg QHS PO Last administered on 10/27/17at 21: 49; Start 10/27/17 at 21:15 Gemfibrozil (Lopid) 600 mg BID PO Last administered on 10/27/17at 21:49; Start 10/27/17 at 21:15 Vitamin B Complex (Folbic Tablet) 1 tab DAILY PO ; Start 10/28/17 at 10:00 Vitamin D (Vitamin D3) 1,000 unit DAILY PO ; Start 10/29/17 at 09:00; Status UNV Colesevelam HCl (Welchol) 1,875 mg BID PO ; Start 10/28/17 at 21:00; Status UNV Ferrous Sulfate (Feosol) 325 mg DAILY PO ; Start 10/29/17 at 09:00; Status UNV Folic Acid (Folic Acid) 1 mg DAILY PO ; Start 10/29/17 at 09:00; Status UNV Active Scripts Active Reported Ferrous Sulfate 325 Mg Tablet 1 Tab PO DAILY Cyclobenzaprine Hcl 10 Mg Tablet 1 Tab PO QHS Ondansetron Odt (Ondansetron) 4 Mg Tab.rapdis 1 Tab PO PRN Q6-8HRS Folic Acid 1 Mg Tablet 1 Tab PO DAILY Vytorin 10-40 Mg Tablet (Ezetimibe/Simvastatin) 1 Each Tablet 1 Each PO HS Fish Oil 1,000 Mg Softgel ([place]-3 Fatty Acids/Fish Oil) 1 Each Capsule 4 Each PO DAILY Vitamin D3 (Cholecalciferol (Vitamin D3)) 1,000 Unit Tablet 1 Tab PO DAILY Gemfibrozil 600 Mg Tablet 600 Mg PO BID Welchol (Colesevelam Hcl) 625 Mg Tablet 1,875 Mg PO BID Vitals/I & O Vital Sign - Last 24 Hours 10/27/17 10/27/17 10/27/17 10/27/17 14:25 14:49 15:49 17:30 Temp 98.3 98.3 Pulse 104 105 97 Resp 16 B/P (MAP) 126/80 (95) Pulse Ox 99 97 98 O2 Delivery Room Air Room Air 10/27/17 10/27/17 10/27/17 10/27/17 19:00 20:00 20:50 21:29 Temp 98.7 98.6 99.1 98.7 98.6 99.1 Pulse 98 94 98 Resp 19 16 16 B/P (MAP) 111/61 (78) 114/67 (83) 115/63 Pulse Ox 100 100 O2 Delivery Room Air Room Air Room Air 10/27/17 10/27/17 10/27/17 10/27/17 22:00 22:49 23:03 23:41 Temp 98.3 97.5 98.5 99.0 98.3 97.5 98.5 99.0 Pulse 90 93 93 96 Resp 16 18 16 16 B/P (MAP) 113/63 (80) 111/62 (78) 89/55 (66) 116/63 Pulse Ox 99 100 96 O2 Delivery Room Air Room Air Room Air 10/28/17 10/28/17 10/28/17 10/28/17 00:41 01:45 02:43 07:00 Temp 98.4 98.0 97.8 98.4 98.4 98.0 97.8 98.4 Pulse 90 84 84 82 Resp 16 18 18 B/P (MAP) 109/57 111/65 (80) 100/58 (72) 96/56 (69) Pulse Ox 99 98 98 O2 Delivery Room Air Room Air Room Air 10/28/17 10/28/17 10/28/17 10/28/17 08:08 08:23 09:23 09:31 Temp 98.4 97.6 97.4 97.4 98.4 97.6 97.4 97.4 Pulse 82 82 91 91 Resp 18 18 20 20 B/P (MAP) 96/56 97/58 94/53 94/53 (67) Pulse Ox 99 O2 Delivery Room Air Intake and Output 10/27/17 10/27/17 10/28/17 15:00 23:00 07:00 Intake Total 230 ml 550 ml Balance 230 ml 550 ml DIDI MAEDE MD Oct 28, 2017 09:43
--- NOTE | 2017-10-28 10:05 | PDOC2 ---
CONSULT Date of Consult Date of Consult DATE: 10/28/17 TIME: 09:52 Reason for consultation: Pancytopenia Consult: Hematology oncology, Dr. Litzy Singh History of present illness: Ms Ramirez is a 62-year-old female followed by Dr. Oglesby for non-small cell lung carcinoma, adenocarcinoma, stage IV, currently on maintenance chemotherapy with pemetrexed and Pembrolizumab, cycle 11 day 13, admitted with bright red blood per rectum, she had some red blood coating her stool, it was more than her usual hemorrhoid bleeding, and GI has been consulted but has not yet seen her. She is followed by Dr. Rowe as an outpatient with history of GERD and gastric ulcer. She also had a rectal bleed in August 2017. Hemoglobin was 5.5 on this admit, she has had pancytopenia related to chemotherapy and was placed on Aranesp every 4 week dosing which began 22 October for her first dose. Recent B12 and folic acid were fine. Platelet count is 45,000, she had 1 bowel movement with the blood associated Sunday morning and since admit has not had a recurrent bowel movement or blood per stool. She is currently receiving her second unit of blood today. Neutropenia, thrombocytopenia and anemia are likely contributed to by current chemotherapy. There moderate, chronic (mos), worse with chemotherapy, and hopefully her hemoglobin will continue to improve with red blood cell transfusion, and associated with dizziness and weakness though that has improved since admit. Past medical history: Arthritis Diabetes mellitus 2 Hypertension Hyperlipidemia Rectal bleed August 2017 Non-small cell lung adenocarcinoma stage IV GERD Gastric ulcer Past surgical history: Neck mass biopsy EGD and colonoscopy Allergies: Doxycycline, niacin, sulfa Medications: See attached list Social history: Positive tobacco currently smoking, no alcohol, lives with and 3 children Family history: Ovarian and prostate cancer Review of systems: Dizziness and weakness improving, otherwise 10 point review of systems negative Physical exam: Vitals reviewed, no fevers Gen.: Well-nourished and well-developed in no acute distress HEENT: mucous membranes moist, head normocephalic atraumatic Neck: Supple, no lymphadenopathy Lymph nodes: No palpable lymphadenopathy neck or axilla Lungs: Breathing comfortably on room air, no evidence of respiratory distress Heart: Regular rate and rhythm Abdomen: Soft, nontender, nondistended Extremities: No cyanosis or edema Skin: No obvious rashes or skin breakdown Neuro: Alert and oriented 3 Psych: Normal mood and affect Lab reviewed: White count 1.0, ANC 700, hemoglobin 5.5, platelets 45 Rads reviewed: CXR Question mild infiltrate at the right lung base, Mediastinal lymphadenopathy. Large left upper lobe mass. Case discussed with: Patient, records reviewed in [facility] and [facility], including labs and radiology, please see note for summary details. Assessment and Plan: Ms. Ramirez is a 62-year-old female with stage IV non-small cell lung adenocarcinoma currently cycle 11 day 13 of pemetrexed and pembrolizumab maintenance admitted with pancytopenia and recent bright red blood per rectum 1 Sunday morning Bright red blood per rectum: x 1, has not recurred, if she does have another bowel movement with blood would recommend platelet transfusion with platelet count just less than 50,000, and GI has been consulted. She is avoiding aspirin which was associated with the GI bleed in August. Lung cancer: Currently on maintenance chemotherapy, may want to consider stopping pemetrexed with cytopenias, however defer to Dr. Oglesby. We'll give her a B12 folic acid oral vitamin as she is on the pemetrexed though recent levels fine. Pancytopenia: due to chemotherapy, no need for G-CSF without fevers or clinical decompensation, and would continue to transfuse to keep hemoglobin greater than 7 and platelet transfusion if less than 10,000 spontaneously, less than 20,000 with fever, or less than 50,000 with active bleeding. She was given first dose of Aranesp every 4 week dosing on 22 October. Tobacco abuse: Highly recommend cessation. Disposition: per others, Dr Oglesby will return tomorrow. Thank you kindly for this consultation, and please don't hesitate to call with further questions. Current Problem List Problem List Problems Medical Problems: (1) Thrombocytopenia Status: Acute Current Medications Current Medications Current Medications Pantoprazole Sodium (PROTONIX VIAL for IV PUSH) 80 mg 1X ONCE IVP Last administered on 10/27/17at 16:02; Start 10/27/17 at 15:45; Stop 10/27/17 at 15:46 ; Status DC Sodium Chloride 1,000 ml @ 75 mls/hr [id number] IV Last administered on at 16:02; Start 10/27/17 at 15:53; Stop 10/28/17 at 09:37; Status DC Pantoprazole Sodium 80 mg/ Sodium Chloride 100 ml @ 10 mls/hr Q10H IV Last administered on 10/28/17at 03:50; Start 10/27/17 at 16:15 Piperacillin Sod/ Tazobactam Sod 3.375 gm/Sodium Chloride 50 ml @ 100 mls/hr Q6HRS IV Last administered on 10/28/17at 06:29; Start 10/27/17 at 18:00; Stop at 09:37; Status DC Cyclobenzaprine HCl (Flexeril) 10 mg QHS PO Last administered on 10/27/17at 21: 49; Start 10/27/17 at 21:15 Gemfibrozil (Lopid) 600 mg BID PO Last administered on 10/27/17at 21:49; Start 10/27/17 at 21:15 Vitamin B Complex (Folbic Tablet) 1 tab DAILY PO ; Start 10/28/17 at 10:00 Vitamin D (Vitamin D3) 1,000 unit DAILY PO ; Start 10/28/17 at 12:00 Colesevelam HCl (Welchol) 1,875 mg BID PO ; Start 10/28/17 at 12:00 Ferrous Sulfate (Feosol) 325 mg DAILY PO ; Start 10/28/17 at 12:00 Folic Acid (Folic Acid) 1 mg DAILY PO ; Start 10/28/17 at 12:00 Active Scripts Active Reported Ferrous Sulfate 325 Mg Tablet 1 Tab PO DAILY Cyclobenzaprine Hcl 10 Mg Tablet 1 Tab PO QHS Ondansetron Odt (Ondansetron) 4 Mg Tab.rapdis 1 Tab PO PRN Q6-8HRS Folic Acid 1 Mg Tablet 1 Tab PO DAILY Vytorin 10-40 Mg Tablet (Ezetimibe/Simvastatin) 1 Each Tablet 1 Each PO HS Fish Oil 1,000 Mg Softgel ([place]-3 Fatty Acids/Fish Oil) 1 Each Capsule 4 Each PO DAILY Vitamin D3 (Cholecalciferol (Vitamin D3)) 1,000 Unit Tablet 1 Tab PO DAILY Gemfibrozil 600 Mg Tablet 600 Mg PO BID Welchol (Colesevelam Hcl) 625 Mg Tablet 1,875 Mg PO BID Allergies Allergies: Coded Allergies: Sulfa (Sulfonamide Antibiotics) (Unverified Allergy, Intermediate, rash, ) doxycycline (Verified Allergy, Intermediate, Hives, 10/08/17) niacin (Unverified Allergy, Intermediate, rash, 10/08/17) Vitals VITALS Vital Signs Date Time Temp Pulse Resp B/P (MAP) Pulse Ox O2 Delivery O2 Flow Rate FiO2 10/28/17 09:31 97.4 91 20 94/53 (67) 99 Room Air 97.4 Labs Labs Laboratory Tests Test 10/27/17 15:02 10/28/17 04:30 White Blood Count 1.0 x10^3/uL (4.0-11.0) 1.0 x10^3/uL (4.0-11.0) Red Blood Count 1.70 x10^6/uL (3.50-5.40) 1.60 x10^6/uL (3.50-5.40) Hemoglobin 5.8 g/dL (12.0-15.5) 5.5 g/dL (12.0-15.5) Hematocrit 16.7 % (36.0-47.0) 15.4 % (36.0-47.0) Mean Corpuscular Volume 98 fL (79-100) 96 fL (79-100) Mean Corpuscular Hemoglobin 34 pg (25-35) 34 pg (25-35) Mean Corpuscular Hemoglobin Concent 35 g/dL (31-37) 36 g/dL (31-37) Red Cell Distribution Width 25.3 % (11.5-14.5) 16.6 % (11.5-14.5) Platelet Count 13 x10^3/uL (140-400) 45 x10^3/uL (140-400) Neutrophils (%) (Auto) 70 % (31-73) 42 % (31-73) Lymphocytes (%) (Auto) 19 % (24-48) 48 % (24-48) Monocytes (%) (Auto) 7 % (0-9) 8 % (0-9) Eosinophils (%) (Auto) 3 % (0-3) 2 % (0-3) Basophils (%) (Auto) 1 % (0-3) 0 % (0-3) Neutrophils # (Auto) 0.7 x10^3uL (1.8-7.7) 0.4 x10^3uL (1.8-7.7) Lymphocytes # (Auto) 0.2 x10^3/uL (1.0-4.8) 0.5 x10^3/uL (1.0-4.8) Monocytes # (Auto) 0.1 x10^3/uL (0.0-1.1) 0.1 x10^3/uL (0.0-1.1) Eosinophils # (Auto) 0.0 x10^3/uL (0.0-0.7) 0.0 x10^3/uL (0.0-0.7) Basophils # (Auto) 0.0 x10^3/uL (0.0-0.2) 0.0 x10^3/uL (0.0-0.2) Segmented Neutrophils % 74 % (35-66) Lymphocytes % 18 % (24-48) Monocytes % 8 % (0-10) Toxic Granulation Mod Platelet Estimate Decreased (ADEQUATE) Anisocytosis Mod Prothrombin Time 16.5 SEC (11.7-14.0) Prothromb Time International Ratio 1.4 (0.8-1.1) Sodium Level 136 mmol/L (136-145) Potassium Level 3.9 mmol/L (3.5-5.1) Chloride Level 103 mmol/L (98-107) Carbon Dioxide Level 22 mmol/L (21-32) Anion Gap 11 (6-14) Blood Urea Nitrogen 23 mg/dL (7-20) Creatinine 0.8 mg/dL (0.6-1.0) Estimated GFR (Cockcroft-Gault) 72.9 BUN/Creatinine Ratio 29 (6-20) Glucose Level 136 mg/dL (70-99) Lactic Acid Level 1.7 mmol/L (0.4-2.0) Calcium Level 8.9 mg/dL (8.5-10.1) Total Bilirubin 0.5 mg/dL (0.2-1.0) Aspartate Amino Transf (AST/SGOT) 28 U/L (15-37) Alanine Aminotransferase (ALT/SGPT) 23 U/L (14-59) Alkaline Phosphatase 147 U/L (46-116) Troponin I Quantitative < 0.017 ng/mL (0.000-0.055) Total Protein 6.0 g/dL (6.4-8.2) Albumin 2.9 g/dL (3.4-5.0) Albumin/Globulin Ratio 0.9 (1.0-1.7) Laboratory Tests Test 10/27/17 15:02 10/28/17 04:30 White Blood Count 1.0 x10^3/uL (4.0-11.0) 1.0 x10^3/uL (4.0-11.0) Red Blood Count 1.70 x10^6/uL (3.50-5.40) 1.60 x10^6/uL (3.50-5.40) Hemoglobin 5.8 g/dL (12.0-15.5) 5.5 g/dL (12.0-15.5) Hematocrit 16.7 % (36.0-47.0) 15.4 % (36.0-47.0) Mean Corpuscular Volume 98 fL (79-100) 96 fL (79-100) Mean Corpuscular Hemoglobin 34 pg (25-35) 34 pg (25-35) Mean Corpuscular Hemoglobin Concent 35 g/dL (31-37) 36 g/dL (31-37) Red Cell Distribution Width 25.3 % (11.5-14.5) 16.6 % (11.5-14.5) Platelet Count 13 x10^3/uL (140-400) 45 x10^3/uL (140-400) Neutrophils (%) (Auto) 70 % (31-73) 42 % (31-73) Lymphocytes (%) (Auto) 19 % (24-48) 48 % (24-48) Monocytes (%) (Auto) 7 % (0-9) 8 % (0-9) Eosinophils (%) (Auto) 3 % (0-3) 2 % (0-3) Basophils (%) (Auto) 1 % (0-3) 0 % (0-3) Neutrophils # (Auto) 0.7 x10^3uL (1.8-7.7) 0.4 x10^3uL (1.8-7.7) Lymphocytes # (Auto) 0.2 x10^3/uL (1.0-4.8) 0.5 x10^3/uL (1.0-4.8) Monocytes # (Auto) 0.1 x10^3/uL (0.0-1.1) 0.1 x10^3/uL (0.0-1.1) Eosinophils # (Auto) 0.0 x10^3/uL (0.0-0.7) 0.0 x10^3/uL (0.0-0.7) Basophils # (Auto) 0.0 x10^3/uL (0.0-0.2) 0.0 x10^3/uL (0.0-0.2) Segmented Neutrophils % 74 % (35-66) Lymphocytes % 18 % (24-48) Monocytes % 8 % (0-10) Toxic Granulation Mod Platelet Estimate Decreased (ADEQUATE) Anisocytosis Mod Prothrombin Time 16.5 SEC (11.7-14.0) Prothromb Time International Ratio 1.4 (0.8-1.1) Sodium Level 136 mmol/L (136-145) Potassium Level 3.9 mmol/L (3.5-5.1) Chloride Level 103 mmol/L (98-107) Carbon Dioxide Level 22 mmol/L (21-32) Anion Gap 11 (6-14) Blood Urea Nitrogen 23 mg/dL (7-20) Creatinine 0.8 mg/dL (0.6-1.0) Estimated GFR (Cockcroft-Gault) 72.9 BUN/Creatinine Ratio 29 (6-20) Glucose Level 136 mg/dL (70-99) Lactic Acid Level 1.7 mmol/L (0.4-2.0) Calcium Level 8.9 mg/dL (8.5-10.1) Total Bilirubin 0.5 mg/dL (0.2-1.0) Aspartate Amino Transf (AST/SGOT) 28 U/L (15-37) Alanine Aminotransferase (ALT/SGPT) 23 U/L (14-59) Alkaline Phosphatase 147 U/L (46-116) Troponin I Quantitative < 0.017 ng/mL (0.000-0.055) Total Protein 6.0 g/dL (6.4-8.2) Albumin 2.9 g/dL (3.4-5.0) Albumin/Globulin Ratio 0.9 (1.0-1.7) LITZY SINGH MD Oct 28, 2017 10:05
--- NOTE | 2017-10-28 11:04 | EKG ---
[facility] [address] [place] [address] Test Date: 2017-10-27 Test Time: 14:34:22 Pat Name: MEREDITH DELANEY Department: Room: 560 1 Gender: F [employer]: : [id number] Requested By: THANH NEAL Order Number: [id number] Reading MD: Azar Cintron MD Measurements Intervals Bruce Rate: 100 P: 58 NH: 156 QRS: 75 QRSD: 84 T: 76 QT: 324 QTc: 420 Interpretive Statements SINUS TACHYCARDIA Electronically Signed On 10-30-2017 10:38:04 CDT by Azar Cintron MD
--- NOTE | 2017-10-28 12:06 | HP ---
ADMIT DATE: 10/27/2017 CHIEF COMPLAINT: Rectal bleeding. HISTORY OF PRESENT ILLNESS: The patient is a 62-year-old female who is presently on chemotherapy for metastatic lung cancer. She presented to the Emergency Room with the above complaint. The patient reports noticing bright red blood with her stool on the day of admission. She did not have any abdominal pain accompanying this and she denies seeing blood in her stool on other occasions recently. Lab in the Emergency Room showed a hemoglobin of 5.5 and the patient was admitted for further care. 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 PAST SURGICAL HISTORY: Excision of lymph node from the neck in 01/19. ALLERGIES: The patient is ALLERGIC to SULFA, DOXYCYCLINE and NIACIN. HOME MEDICATIONS: Vitamin D 1000 units daily, Welchol 625 mg 3 tablets b.i.d., Flexeril 10 mg at bedtime, Vytorin 10/40 one daily, folic acid 1 mg daily, gemfibrozil 600 mg b.i.d. FAMILY HISTORY: Noncontributory. SOCIAL HISTORY: The patient is . She continues to smoke cigarettes about 1 pack per day. She does not drink alcohol to excess. REVIEW OF SYSTEMS: The patient denies fever or chills. She denies increase in her chronic cough. She denies shortness of breath. She denies chest pain or palpitations. She denies abdominal or epigastric pain, nausea or vomiting. She denies lower extremity edema. She continues to have some mild ongoing unintentional weight loss. She received chemotherapy about [address] Oglesby's office. She reports that she also received her first injection of Aranesp at Dr. Oglesby's office last week. PHYSICAL EXAMINATION: GENERAL: The patient is alert and oriented x 3, sitting up comfortably in bed, in no acute distress. HEENT: PERRL, EOMI, sclerae clear. Oropharynx: Mucous membranes moist. NECK: Supple, without lymphadenopathy. CHEST: Breath sounds are moderately decreased throughout, but otherwise clear to auscultation. No wheezes heard. No cough during exam. CARDIOVASCULAR: Regular rhythm without murmur. ABDOMEN: Soft, nontender, normoactive bowel sounds are present. EXTREMITIES: Without edema. ASSESSMENT AND PLAN: 1. Rectal bleeding with pancytopenia. The patient was profoundly pancytopenic at admission with a white blood count of 1.0, hemoglobin of 5.8 and platelets of 13. She received 1 unit of packed cells and 1 unit of platelets yesterday. Her labs this morning showed the platelets improved to 45; however, her hemoglobin was slightly decreased at 5.5 and her white blood count remains at 1.0. She is presently receiving a second unit of packed cells. We will check her hemoglobin after this transfusion and order further transfusion if indicated. There is no evidence of ongoing bleeding at this time. The patient has not taken daily aspirin in months and is advised to continue to avoid this. 2. Stage 4 non-small cell lung cancer. The patient is still receiving chemotherapy, the last CT of the chest on the hospital chart shows mild worsening of her tumors. Continue treatment as per Oncology. 3. Diabetes mellitus type 2. This is diet-controlled for the patient at this time. 4. Hyperlipidemia. Continue home medication. DIDI MEADE MD DR: MIRNA/joseph JOB#: [id number] / [id number] SOL[place]
--- NOTE | 2017-10-28 15:48 | PDOC2 ---
GI CONSULT Reason For Consult: rectal bleed HPI: HPI: Ms Ramirez is a 62-year-old female followed by Dr. Oglesby for non-small cell lung carcinoma, adenocarcinoma, stage IV, currently on maintenance chemotherapy with pemetrexed and Pembrolizumab, cycle 11 day 13, admitted with bright red blood per rectum, she had some red blood coating her stool, it was more than her usual hemorrhoid bleeding She is followed by Dr. Rowe as an outpatient with history of GERD and gastric ulcer. She also had a rectal bleed in August 2017. She said that he did an EGD at that time and told her that her gastric ulcer was "95% healed." She does not know when her last colonscopy was but rerpots that Dr Rowe removed a polyp. She also had ulcers in her small intesting but does not know why. Dr Rowe reportedly told her that she does not need another colonoscopy for three years. Hemoglobin was 5.5 on this admit, she has had pancytopenia related to chemotherapy and was placed on Aranesp every 4 week dosing which began 22 October for her first dose. Recent B12 and folic acid were fine. Platelet count is 45,000, she had 1 bowel movement with the blood associated Sunday morning and since admit has not had a recurrent bowel movement or blood per stool. She is currently receiving her second unit of blood today. Neutropenia, thrombocytopenia and anemia are likely contributed to by current chemotherapy. There moderate, chronic (mos), worse with chemotherapy, and hopefully her hemoglobin will continue to improve with red blood cell transfusion, and associated with dizziness and weakness though that has improved since admit. PMH: PMH: Past medical history: Arthritis Diabetes mellitus 2 Hypertension Hyperlipidemia Rectal bleed August 2017 Non-small cell lung adenocarcinoma stage IV GERD Gastric ulcer Past surgical history: Neck mass biopsy EGD and colonoscopy Allergies: Doxycycline, niacin, sulfa Social history: Positive tobacco currently smoking, no alcohol, lives with and 3 children Family history: Ovarian and prostate cancer Active Scripts Active Reported Ferrous Sulfate 325 Mg Tablet 1 Tab PO DAILY Cyclobenzaprine Hcl 10 Mg Tablet 1 Tab PO QHS Ondansetron Odt (Ondansetron) 4 Mg Tab.rapdis 1 Tab PO PRN Q6-8HRS Folic Acid 1 Mg Tablet 1 Tab PO DAILY Vytorin 10-40 Mg Tablet (Ezetimibe/Simvastatin) 1 Each Tablet 1 Each PO HS Fish Oil 1,000 Mg Softgel ([place]-3 Fatty Acids/Fish Oil) 1 Each Capsule 4 Each PO DAILY Vitamin D3 (Cholecalciferol (Vitamin D3)) 1,000 Unit Tablet 1 Tab PO DAILY Gemfibrozil 600 Mg Tablet 600 Mg PO BID Welchol (Colesevelam Hcl) 625 Mg Tablet 1,875 Mg PO BID Allergies Allergies: Coded Allergies: Sulfa (Sulfonamide Antibiotics) (Unverified Allergy, Intermediate, rash, ) doxycycline (Verified Allergy, Intermediate, Hives, 10/08/17) niacin (Unverified Allergy, Intermediate, rash, 10/08/17) ROS: Review of systems: Dizziness and weakness improving, otherwise 10 point review of systems negative VItals: Vitals: Vital Signs Date Time Temp Pulse Resp B/P (MAP) Pulse Ox O2 Delivery O2 Flow Rate FiO2 10/28/17 15:13 97.7 79 16 89/50 97.7 10/28/17 11:00 99 Room Air Labs: Labs: Laboratory Tests Test 10/28/17 04:30 10/28/17 13:00 White Blood Count 1.0 x10^3/uL (4.0-11.0) Red Blood Count 1.60 x10^6/uL (3.50-5.40) Hemoglobin 5.5 g/dL (12.0-15.5) 6.6 g/dL (12.0-15.5) Hematocrit 15.4 % (36.0-47.0) Mean Corpuscular Volume 96 fL (79-100) Mean Corpuscular Hemoglobin 34 pg (25-35) Mean Corpuscular Hemoglobin Concent 36 g/dL (31-37) Red Cell Distribution Width 16.6 % (11.5-14.5) Platelet Count 45 x10^3/uL (140-400) Neutrophils (%) (Auto) 42 % (31-73) Lymphocytes (%) (Auto) 48 % (24-48) Monocytes (%) (Auto) 8 % (0-9) Eosinophils (%) (Auto) 2 % (0-3) Basophils (%) (Auto) 0 % (0-3) Neutrophils # (Auto) 0.4 x10^3uL (1.8-7.7) Lymphocytes # (Auto) 0.5 x10^3/uL (1.0-4.8) Monocytes # (Auto) 0.1 x10^3/uL (0.0-1.1) Eosinophils # (Auto) 0.0 x10^3/uL (0.0-0.7) Basophils # (Auto) 0.0 x10^3/uL (0.0-0.2) PE: Physical exam: Vitals reviewed, no fevers Gen.: Well-nourished and well-developed in no acute distress HEENT: mucous membranes moist, head normocephalic atraumatic Neck: Supple, no lymphadenopathy Lymph nodes: No palpable lymphadenopathy neck or axilla Lungs: Breathing comfortably on room air, no evidence of respiratory distress Heart: Regular rate and rhythm Abdomen: Soft, nontender, nondistended Extremities: No cyanosis or edema Skin: No obvious rashes or skin breakdown Neuro: Alert and oriented 3 Psych: Normal mood and affect A/P: A/P: A 1) Rectal bleed 2_ Anemia 3) PMH gastric ulcer 4) PMH colon polyps P 1) Rectal bleed has stopped. Monitor Hgb 2) No plans for endoscopy at this time d/w nursing TRAVIS NAVARRO MD Oct 28, 2017 15:48
[2017-10-28] MEDS: CHOLECALCIFEROL (VITAMIN D3) 1,000 UNIT TABLET PO SCH (18:57)
[2017-10-28] MEDS: GEMFIBROZIL 600 MG TABLET. PO SCH ×2 (18:57→22:05)
[2017-10-28] MEDS: FOLIC ACID 1 MG TABLET. PO SCH (18:57)
[2017-10-28] MEDS: FERROUS SULFATE 325 MG TABLET. PO SCH (18:57)
[2017-10-28] MEDS: COLESEVELAM HCL 625 MG TABLET PO SCH ×2 (18:57→22:05)
[2017-10-28] MEDS: VITAMIN B12,B9,B6 COMPLEX 1 TABLET. PO SCH (18:57)
[2017-10-28] MEDS: CYCLOBENZAPRINE 10 MG TABLET. PO SCH (22:05)
[2017-10-29] VITALS (10 sets, daily range): BP systolic 107–126; BP diastolic 53–70
[2017-10-29] MEDS: PANTOPRAZOLE SODIUM IV DRIP 80 MG in IV NORMAL SALINE 100ML 100 ML IV SCH ×2 (03:18→08:15)
[2017-10-29 03:48] LABS: RED BLOOD COUNT 2.05 x10^6/uL (3.50-5.40); RED CELL DISTRIBUTION WIDTH 14.3 % (11.5-14.5)
[2017-10-29 03:58] LABS: HEMOGLOBIN 6.8 g/dL (12.0-15.5); WHITE BLOOD COUNT 0.9 x10^3/uL (4.0-11.0)
--- NOTE | 2017-10-29 09:09 | PDOC ---
PROGRESS NOTES Subjective Subjective HPI -f/u of Stage IV non-small cell lung adenocarcinoma ROS - had hematochezia today Objective Objective Vital Signs Date Time Temp Pulse Resp B/P (MAP) Pulse Ox O2 Delivery O2 Flow Rate FiO2 10/29/17 07:00 98.7 88 20 108/63 (78) 97 Room Air 98.7 Intake and Output 10/29/17 07:00 Intake Total 2013 ml Balance 2013 ml Intake Oral 780 ml Blood Product IV Normal Saline Flush 1234 ml # Voids 5 # Bowel Movements 5 Physical Exam Heart: Normal S1, Normal S2 General: Alert, Oriented X3 Lungs: Clear to auscultation Neck: Supple Neuro: Normal speech Psych/Mental Status: Mental status NL Assessment Assessment Problems Medical Problems: (1) Thrombocytopenia Status: Acute Assessment and Plan: 1. Stage IV non-small cell lung adenocarcinoma currently cycle 11 pemetrexed and pembrolizumab maintenance admitted with pancytopenia and recent bright red blood per rectum 1 Sunday morning 2. GI bleed: Bright red blood per rectum gain today. Would recommend platelet transfusion with platelet count just less than 50,000, and GI has been consulted. She is avoiding aspirin which was associated with the GI bleed in August. ?colitis due to immunotherapy? I will start prednisone. Await GI eval, recommend colonoscopy to eval for colitis. 3. Neutropenia - start granix 10/29/17. 4. Thrombocytopenia - platelet transfusion if less than 10,000 spontaneously, less than 20,000 with fever, or less than 50,000 with active bleeding. She was given first dose of Aranesp every 4 week dosing on 22 October. Comment Review of Relevant I have reviewed the following items alma (where applicable) has been applied. Labs Laboratory Tests Test 10/27/17 15:02 10/28/17 04:30 10/28/17 13:00 10/28/17 19:50 White Blood Count 1.0 x10^3/uL (4.0-11.0) 1.0 x10^3/uL (4.0-11.0) Red Blood Count 1.70 x10^6/uL (3.50-5.40) 1.60 x10^6/uL (3.50-5.40) Hemoglobin 5.8 g/dL (12.0-15.5) 5.5 g/dL (12.0-15.5) 6.6 g/dL (12.0-15.5) 7.9 g/dL (12.0-15.5) Hematocrit 16.7 % (36.0-47.0) 15.4 % (36.0-47.0) 22.4 % (36.0-47.0) Mean Corpuscular Volume 98 fL (79-100) 96 fL (79-100) Mean Corpuscular Hemoglobin 34 pg (25-35) 34 pg (25-35) Mean Corpuscular Hemoglobin Concent 35 g/dL (31-37) 36 g/dL (31-37) Red Cell Distribution Width 25.3 % (11.5-14.5) 16.6 % (11.5-14.5) Platelet Count 13 x10^3/uL (140-400) 45 x10^3/uL (140-400) 98 x10^3/uL (140-400) Neutrophils (%) (Auto) 70 % (31-73) 42 % (31-73) Lymphocytes (%) (Auto) 19 % (24-48) 48 % (24-48) Monocytes (%) (Auto) 7 % (0-9) 8 % (0-9) Eosinophils (%) (Auto) 3 % (0-3) 2 % (0-3) Basophils (%) (Auto) 1 % (0-3) 0 % (0-3) Neutrophils # (Auto) 0.7 x10^3uL (1.8-7.7) 0.4 x10^3uL (1.8-7.7) Lymphocytes # (Auto) 0.2 x10^3/uL (1.0-4.8) 0.5 x10^3/uL (1.0-4.8) Monocytes # (Auto) 0.1 x10^3/uL (0.0-1.1) 0.1 x10^3/uL (0.0-1.1) Eosinophils # (Auto) 0.0 x10^3/uL (0.0-0.7) 0.0 x10^3/uL (0.0-0.7) Basophils # (Auto) 0.0 x10^3/uL (0.0-0.2) 0.0 x10^3/uL (0.0-0.2) Segmented Neutrophils % 74 % (35-66) Lymphocytes % 18 % (24-48) Monocytes % 8 % (0-10) Toxic Granulation Mod Platelet Estimate Decreased (ADEQUATE) Anisocytosis Mod Prothrombin Time 16.5 SEC (11.7-14.0) Prothromb Time International Ratio 1.4 (0.8-1.1) Sodium Level 136 mmol/L (136-145) Potassium Level 3.9 mmol/L (3.5-5.1) Chloride Level 103 mmol/L (98-107) Carbon Dioxide Level 22 mmol/L (21-32) Anion Gap 11 (6-14) Blood Urea Nitrogen 23 mg/dL (7-20) Creatinine 0.8 mg/dL (0.6-1.0) Estimated GFR (Cockcroft-Gault) 72.9 BUN/Creatinine Ratio 29 (6-20) Glucose Level 136 mg/dL (70-99) Lactic Acid Level 1.7 mmol/L (0.4-2.0) Calcium Level 8.9 mg/dL (8.5-10.1) Total Bilirubin 0.5 mg/dL (0.2-1.0) Aspartate Amino Transf (AST/SGOT) 28 U/L (15-37) Alanine Aminotransferase (ALT/SGPT) 23 U/L (14-59) Alkaline Phosphatase 147 U/L (46-116) Troponin I Quantitative < 0.017 ng/mL (0.000-0.055) Total Protein 6.0 g/dL (6.4-8.2) Albumin 2.9 g/dL (3.4-5.0) Albumin/Globulin Ratio 0.9 (1.0-1.7) Test 10/29/17 02:50 White Blood Count 0.9 x10^3/uL (4.0-11.0) Red Blood Count 2.05 x10^6/uL (3.50-5.40) Hemoglobin 6.8 g/dL (12.0-15.5) Hematocrit 19.0 % (36.0-47.0) Mean Corpuscular Volume 93 fL (79-100) Mean Corpuscular Hemoglobin 33 pg (25-35) Mean Corpuscular Hemoglobin Concent 36 g/dL (31-37) Red Cell Distribution Width 14.3 % (11.5-14.5) Platelet Count 68 x10^3/uL (140-400) Laboratory Tests Test 10/28/17 13:00 10/28/17 19:50 10/29/17 02:50 Hemoglobin 6.6 g/dL (12.0-15.5) 7.9 g/dL (12.0-15.5) 6.8 g/dL (12.0-15.5) Hematocrit 22.4 % (36.0-47.0) 19.0 % (36.0-47.0) Platelet Count 98 x10^3/uL (140-400) 68 x10^3/uL (140-400) White Blood Count 0.9 x10^3/uL (4.0-11.0) Red Blood Count 2.05 x10^6/uL (3.50-5.40) Mean Corpuscular Volume 93 fL (79-100) Mean Corpuscular Hemoglobin 33 pg (25-35) Mean Corpuscular Hemoglobin Concent 36 g/dL (31-37) Red Cell Distribution Width 14.3 % (11.5-14.5) Microbiology 10/28/17 Blood Culture - Preliminary, Resulted NO GROWTH AFTER 1 DAY Medications Current Medications Pantoprazole Sodium (PROTONIX VIAL for IV PUSH) 80 mg 1X ONCE IVP Last administered on 10/27/17at 16:02; Start 10/27/17 at 15:45; Stop 10/27/17 at 15:46 ; Status DC Sodium Chloride 1,000 ml @ 75 mls/hr [id number] IV Last administered on at 16:02; Start 10/27/17 at 15:53; Stop 10/28/17 at 09:37; Status DC Pantoprazole Sodium 80 mg/ Sodium Chloride 100 ml @ 10 mls/hr Q10H IV Last administered on 10/29/17at 03:18; Start 10/27/17 at 16:15 Piperacillin Sod/ Tazobactam Sod 3.375 gm/Sodium Chloride 50 ml @ 100 mls/hr Q6HRS IV Last administered on 10/28/17at 06:29; Start 10/27/17 at 18:00; Stop at 09:37; Status DC Cyclobenzaprine HCl (Flexeril) 10 mg QHS PO Last administered on 10/28/17at 22: 05; Start 10/27/17 at 21:15 Gemfibrozil (Lopid) 600 mg BID PO Last administered on 10/28/17at 18:57; Start 10/27/17 at 21:15 Vitamin B Complex (Folbic Tablet) 1 tab DAILY PO Last administered on 18:57; Start 10/28/17 at 10:00 Vitamin D (Vitamin D3) 1,000 unit DAILY PO Last administered on 10/28/17 18:57 ; Start 10/28/17 at 12:00 Colesevelam HCl (Welchol) 1,875 mg BID PO Last administered on 10/28/17 18:57 ; Start 10/28/17 at 12:00 Ferrous Sulfate (Feosol) 325 mg DAILY PO Last administered on 10/28/17 18:57; Start 10/28/17 at 12:00 Folic Acid (Folic Acid) 1 mg DAILY PO Last administered on 10/28/17 18:57; Start 10/28/17 at 12:00 Tbo-Filgrastim (Granix) 480 mcg QHS SQ ; Start 10/29/17 at 21:00 Active Scripts Active Reported Ferrous Sulfate 325 Mg Tablet 1 Tab PO DAILY Cyclobenzaprine Hcl 10 Mg Tablet 1 Tab PO QHS Ondansetron Odt (Ondansetron) 4 Mg Tab.rapdis 1 Tab PO PRN Q6-8HRS Folic Acid 1 Mg Tablet 1 Tab PO DAILY Vytorin 10-40 Mg Tablet (Ezetimibe/Simvastatin) 1 Each Tablet 1 Each PO HS Fish Oil 1,000 Mg Softgel ([place]-3 Fatty Acids/Fish Oil) 1 Each Capsule 4 Each PO DAILY Vitamin D3 (Cholecalciferol (Vitamin D3)) 1,000 Unit Tablet 1 Tab PO DAILY Gemfibrozil 600 Mg Tablet 600 Mg PO BID Welchol (Colesevelam Hcl) 625 Mg Tablet 1,875 Mg PO BID Vitals/I & O Vital Sign - Last 24 Hours 10/28/17 10/28/17 10/28/17 10/28/17 09:23 09:31 10:23 11:00 Temp 97.4 97.4 97.8 97.7 97.4 97.4 97.8 97.7 Pulse 91 91 83 81 Resp 20 20 20 16 B/P (MAP) 94/53 94/53 (67) 91/50 99/59 (72) Pulse Ox 99 99 O2 Delivery Room Air Room Air 10/28/17 10/28/17 10/28/17 10/28/17 11:08 14:30 14:45 15:00 Temp 97.7 98.0 97.5 97.7 97.7 98.0 97.5 97.7 Pulse 81 82 81 82 Resp 16 16 16 18 B/P (MAP) 99/59 100/58 102/63 90/56 (67) Pulse Ox 99 O2 Delivery Room Air 10/28/17 10/28/17 10/28/17 10/28/17 15:13 16:00 16:15 17:15 Temp 97.7 97.6 97.7 97.7 97.7 97.6 97.7 97.7 Pulse 79 85 82 76 Resp 16 16 16 16 B/P (MAP) 89/50 90/47 90/56 100/54 10/28/17 10/28/17 10/28/17 10/28/17 18:15 19:00 20:00 22:57 Temp 98.2 98.9 98.8 98.2 98.9 98.8 Pulse 84 81 84 Resp 18 18 17 B/P (MAP) 116/53 106/56 (73) 104/61 (75) Pulse Ox 99 99 O2 Delivery Room Air Room Air Room Air 10/29/17 10/29/17 10/29/17 10/29/17 03:00 04:44 05:20 06:20 Temp 98.4 99.1 98.7 99.2 98.4 99.1 98.7 99.2 Pulse 58 91 99 100 Resp 16 20 16 20 B/P (MAP) 108/58 (75) 107/53 (71) 118/65 126/68 Pulse Ox 95 94 O2 Delivery Room Air Room Air 10/29/17 07:00 Temp 98.7 98.7 Pulse 88 Resp 20 B/P (MAP) 108/63 (78) Pulse Ox 97 O2 Delivery Room Air Intake and Output 10/28/17 10/28/17 10/29/17 15:00 23:00 07:00 Intake Total 1116 ml 898 ml Balance 1116 ml 898 ml CARLOS MANCERA MD Oct 29, 2017 09:09
[2017-10-29] MEDS: CHOLECALCIFEROL (VITAMIN D3) 1,000 UNIT TABLET PO SCH (09:24)
[2017-10-29] MEDS: predniSONE 20 MG TABLET PO SCH (09:24)
[2017-10-29] MEDS: COLESEVELAM HCL 625 MG TABLET PO SCH ×2 (09:24→21:00)
[2017-10-29] MEDS: FERROUS SULFATE 325 MG TABLET. PO SCH (09:24)
[2017-10-29] MEDS: VITAMIN B12,B9,B6 COMPLEX 1 TABLET. PO SCH (09:24)
[2017-10-29] MEDS: GEMFIBROZIL 600 MG TABLET. PO SCH ×2 (09:24→21:00)
[2017-10-29] MEDS: FOLIC ACID 1 MG TABLET. PO SCH (09:24)
[2017-10-29 09:45] LABS: HEMATOCRIT 23.8 % (36.0-47.0); HEMOGLOBIN 8.5 g/dL (12.0-15.5); RED BLOOD COUNT 2.58 x10^6/uL (3.50-5.40); RED CELL DISTRIBUTION WIDTH 14.1 % (11.5-14.5)
[2017-10-29 09:57] LABS: WHITE BLOOD COUNT 0.7 x10^3/uL (4.0-11.0)
--- NOTE | 2017-10-29 10:20 | PDOC ---
Objective: Objective: Seen earlier this morning w/ Dr. Samuels. Reviewed oncology note - recommendations for colonoscopy. Vital Signs: Vital Signs Date Time Temp Pulse Resp B/P (MAP) Pulse Ox O2 Delivery O2 Flow Rate FiO2 10/29/17 07:00 98.7 88 20 108/63 (78) 97 Room Air 98.7 Labs: Laboratory Tests Test 10/28/17 13:00 10/28/17 19:50 10/29/17 02:50 10/29/17 09:25 Hemoglobin 6.6 g/dL 7.9 g/dL 6.8 g/dL 8.5 g/dL Hematocrit 22.4 % 19.0 % 23.8 % Platelet Count 98 x10^3/uL 68 x10^3/uL 68 x10^3/uL White Blood Count 0.9 x10^3/uL 0.7 x10^3/uL Red Blood Count 2.05 x10^6/uL 2.58 x10^6/uL Mean Corpuscular Volume 93 fL 92 fL Mean Corpuscular Hemoglobin 33 pg 33 pg Mean Corpuscular Hemoglobin Concent 36 g/dL 36 g/dL Red Cell Distribution Width 14.3 % 14.1 % PE: GEN: NAD LUNGS: diminished HEART: mildly tachycardic ABD: NABS, S/ND/NT NEURO/PSYCH: A & O 3 A/P: Stage IV lung cancer Rectal bleeding Anemia, leukopenia, thrombocytopenia - ongoing transfusions -- Stage IV cancer, ongoing bleeding. She has EGD and colonoscopy reports with her - performed by Dr. Rowe in 04/2017 - --> gastric and duodenal ulcers, erosive esophagitis, colon polyp, hemorrhoids. On clear liquids - will change to PO PPI. Monitor bleeding and labs, transfuse as needed, continue per oncology. RIOS AGUILERA Oct 29, 2017 10:20
[2017-10-29 14:09] LABS: HEMATOCRIT 22.8 % (36.0-47.0); HEMOGLOBIN 7.9 g/dL (12.0-15.5); RED BLOOD COUNT 2.44 x10^6/uL (3.50-5.40); RED CELL DISTRIBUTION WIDTH 14.2 % (11.5-14.5)
[2017-10-29 14:19] LABS: WHITE BLOOD COUNT 0.5 x10^3/uL (4.0-11.0)
--- NOTE | 2017-10-29 16:39 | PDOC ---
PROGRESS NOTES Subjective She had rectal bleeding overnight but Hgb has been stable today. She denies chest pain, SOA, dizziness, GI pain, dysuria. She has not felt feverish and her appetite is good Objective Afebrile General: NAD Heart: RRR Lungs: CTA Abd: soft Ext: no edema WBC: 0.5 Hgb: 7.9 Vital Signs Vital Signs Date Time Temp Pulse Resp B/P (MAP) Pulse Ox O2 Delivery O2 Flow Rate FiO2 10/29/17 15:00 98.3 75 20 116/65 (82) 98 Room Air 98.3 I & O Intake and Output 10/29/17 07:00 Intake Total 2013 ml Balance 2013 ml Intake Oral 780 ml Blood Product IV Normal Saline Flush 1234 ml # Voids 5 # Bowel Movements 5 Assessment and Plan rectal bleeding - Hgb stable, platelets stable after transfusions - GI following chemo induced pancytopenia - oncology following lung cancer, stage IV, non small cell - she is wondering if she should stop treatment Keyshawn CARPENTER MD Oct 29, 2017 16:39
[2017-10-29] MEDS: CYCLOBENZAPRINE 10 MG TABLET. PO SCH (21:00)
[2017-10-29] MEDS ORDERED: TBO-FILGRASTIM 480 MCG/0.8 ML SYRINGE. SQ SCH (21:00)
[2017-10-30 03:00] VITALS: BP 122/64
[2017-10-30 07:00] VITALS: BP 105/59
[2017-10-30 07:16] LABS: BASO % 0 % (0-3); EOS % 0 % (0-3); HEMATOCRIT 22.2 % (36.0-47.0); HEMOGLOBIN 7.8 g/dL (12.0-15.5); LYMPH # 0.3 x10^3/uL (1.0-4.8); LYMPH % 21 % (24-48); MEAN CORPUSCULAR HEMOGLOBIN 33 pg (25-35); MEAN CORPUSCULAR HGB CONC 35 g/dL (31-37); MEAN CORPUSCULAR VOLUME 93 fL (79-100); MONO # 0.1 x10^3/uL (0.0-1.1); MONO % 9 % (0-9); NEUT # 1.1 x10^3uL (1.8-7.7); NEUT % 70 % (31-73); PLATELET COUNT 52 x10^3/uL (140-400); RED BLOOD COUNT 2.39 x10^6/uL (3.50-5.40); RED CELL DISTRIBUTION WIDTH 14.2 % (11.5-14.5)
[2017-10-30 07:21] LABS: RETIC COUNT 1.3 % (0.5-2.5); WHITE BLOOD COUNT 1.6 x10^3/uL (4.0-11.0)
[2017-10-30] MEDS ORDERED: PANTOPRAZOLE 40 MG TABLET.DR. PO SCH (07:30)
[2017-10-30] MEDS: CHOLECALCIFEROL (VITAMIN D3) 1,000 UNIT TABLET PO SCH (09:14)
[2017-10-30] MEDS: COLESEVELAM HCL 625 MG TABLET PO SCH (09:14)
[2017-10-30] MEDS: FOLIC ACID 1 MG TABLET. PO SCH (09:14)
[2017-10-30] MEDS: FERROUS SULFATE 325 MG TABLET. PO SCH (09:14)
[2017-10-30] MEDS: GEMFIBROZIL 600 MG TABLET. PO SCH (09:14)
[2017-10-30] MEDS: predniSONE 20 MG TABLET PO SCH (09:14)
[2017-10-30] MEDS: VITAMIN B12,B9,B6 COMPLEX 1 TABLET. PO SCH (10:08)
[2017-10-30 11:00] VITALS: BP 108/63
--- NOTE | 2017-10-30 11:52 | PDOC ---
Subjective: Subjective: Says bleeding is less - had a stool and "they didn't see much blood." Tolerating liquids, says she's hopeful to go home today. Objective: Objective: Brown stool per RN. Vital Signs: Vital Signs Date Time Temp Pulse Resp B/P (MAP) Pulse Ox O2 Delivery O2 Flow Rate FiO2 10/30/17 07:00 98.9 72 16 105/59 (74) 99 Room Air 98.9 Labs: Laboratory Tests Test 10/29/17 14:00 10/30/17 06:49 White Blood Count 0.5 x10^3/uL 1.6 x10^3/uL Red Blood Count 2.44 x10^6/uL 2.39 x10^6/uL Hemoglobin 7.9 g/dL 7.8 g/dL Hematocrit 22.8 % 22.2 % Mean Corpuscular Volume 93 fL 93 fL Mean Corpuscular Hemoglobin 32 pg 33 pg Mean Corpuscular Hemoglobin Concent 35 g/dL 35 g/dL Red Cell Distribution Width 14.2 % 14.2 % Platelet Count 59 x10^3/uL 52 x10^3/uL Neutrophils (%) (Auto) 70 % Lymphocytes (%) (Auto) 21 % Monocytes (%) (Auto) 9 % Eosinophils (%) (Auto) 0 % Basophils (%) (Auto) 0 % Neutrophils # (Auto) 1.1 x10^3uL Lymphocytes # (Auto) 0.3 x10^3/uL Monocytes # (Auto) 0.1 x10^3/uL Eosinophils # (Auto) 0.0 x10^3/uL Basophils # (Auto) 0.0 x10^3/uL Reticulocyte Count (auto) 1.3 % Iron Level 235 ug/dL Total Iron Binding Capacity 252 ug/dL Iron Saturation 93 % Ferritin 1484 ng/mL Vitamin B12 Level 1030 pg/mL Serum Folate 14.06 ng/ml PE: GEN: NAD LUNGS: NC HEART: RRR ABD: soft, non-tender NEURO/PSYCH: A & O 3 A/P: Stage IV lung cancer w/ leukopenia and thrombocytopenia Rectal bleeding (resolved), anemia -EGD and colonoscopy in 04/2017 w/ DU and hemorrhoids, on PO PPI, iron, and prednisone (per hematology) -Hgb stable 7.8 - transfused yesterday -- No bleeding today w/ stable Hgb. DC per Dr. Oglesby and Dr. Harmon. RIOS AGUILERA Oct 30, 2017 11:52
--- NOTE | 2017-10-30 11:55 | PDOC ---
PROGRESS NOTES Subjective Subjective HPI -f/u of Stage IV non-small cell lung adenocarcinoma ROS - no bleeding today Objective Objective Vital Signs Date Time Temp Pulse Resp B/P (MAP) Pulse Ox O2 Delivery O2 Flow Rate FiO2 10/30/17 07:00 98.9 72 16 105/59 (74) 99 Room Air 98.9 Intake and Output 10/30/17 07:00 Intake Total 1550 ml Balance 1550 ml Intake Oral 1550 ml # Voids 1 Physical Exam Abdomen: Soft General: Alert, Oriented X3, No acute distress Neuro: Normal speech Psych/Mental Status: Mental status NL Assessment Assessment Problems Medical Problems: (1) Thrombocytopenia Status: Acute Assessment and Plan: 1. Stage IV non-small cell lung adenocarcinoma currently cycle 11 pemetrexed and pembrolizumab maintenance admitted with pancytopenia and recent bright red blood per rectum. 2. GI bleed: Bright red blood per rectum. ?colitis due to immunotherapy? I started prednisone 10/29/17, continue and f/u with me this week. Ok to d/c home. I d/w YAHIR gold. Hb stable 3. Neutropenia - started granix 10/29/17. 4. Thrombocytopenia - platelet transfusion if less than 10,000 spontaneously, less than 20,000 with fever, or less than 50,000 with active bleeding. She was given first dose of Aranesp every 4 week dosing on 22 October. Comment Review of Relevant I have reviewed the following items alma (where applicable) has been applied. Labs Laboratory Tests Test 10/28/17 13:00 10/28/17 19:50 10/29/17 02:50 10/29/17 09:25 Hemoglobin 6.6 g/dL (12.0-15.5) 7.9 g/dL (12.0-15.5) 6.8 g/dL (12.0-15.5) 8.5 g/dL (12.0-15.5) Hematocrit 22.4 % (36.0-47.0) 19.0 % (36.0-47.0) 23.8 % (36.0-47.0) Platelet Count 98 x10^3/uL (140-400) 68 x10^3/uL (140-400) 68 x10^3/uL (140-400) White Blood Count 0.9 x10^3/uL (4.0-11.0) 0.7 x10^3/uL (4.0-11.0) Red Blood Count 2.05 x10^6/uL (3.50-5.40) 2.58 x10^6/uL (3.50-5.40) Mean Corpuscular Volume 93 fL (79-100) 92 fL (79-100) Mean Corpuscular Hemoglobin 33 pg (25-35) 33 pg (25-35) Mean Corpuscular Hemoglobin Concent 36 g/dL (31-37) 36 g/dL (31-37) Red Cell Distribution Width 14.3 % (11.5-14.5) 14.1 % (11.5-14.5) Test 10/29/17 14:00 10/30/17 06:49 White Blood Count 0.5 x10^3/uL (4.0-11.0) 1.6 x10^3/uL (4.0-11.0) Red Blood Count 2.44 x10^6/uL (3.50-5.40) 2.39 x10^6/uL (3.50-5.40) Hemoglobin 7.9 g/dL (12.0-15.5) 7.8 g/dL (12.0-15.5) Hematocrit 22.8 % (36.0-47.0) 22.2 % (36.0-47.0) Mean Corpuscular Volume 93 fL (79-100) 93 fL (79-100) Mean Corpuscular Hemoglobin 32 pg (25-35) 33 pg (25-35) Mean Corpuscular Hemoglobin Concent 35 g/dL (31-37) 35 g/dL (31-37) Red Cell Distribution Width 14.2 % (11.5-14.5) 14.2 % (11.5-14.5) Platelet Count 59 x10^3/uL (140-400) 52 x10^3/uL (140-400) Neutrophils (%) (Auto) 70 % (31-73) Lymphocytes (%) (Auto) 21 % (24-48) Monocytes (%) (Auto) 9 % (0-9) Eosinophils (%) (Auto) 0 % (0-3) Basophils (%) (Auto) 0 % (0-3) Neutrophils # (Auto) 1.1 x10^3uL (1.8-7.7) Lymphocytes # (Auto) 0.3 x10^3/uL (1.0-4.8) Monocytes # (Auto) 0.1 x10^3/uL (0.0-1.1) Eosinophils # (Auto) 0.0 x10^3/uL (0.0-0.7) Basophils # (Auto) 0.0 x10^3/uL (0.0-0.2) Reticulocyte Count (auto) 1.3 % (0.5-2.5) Iron Level 235 ug/dL (50-170) Total Iron Binding Capacity 252 ug/dL (250-450) Iron Saturation 93 % (15-34) Ferritin 1484 ng/mL (8-252) Vitamin B12 Level 1030 pg/mL (247-911) Serum Folate 14.06 ng/ml (3.2-20.0) Laboratory Tests Test 10/29/17 14:00 10/30/17 06:49 White Blood Count 0.5 x10^3/uL (4.0-11.0) 1.6 x10^3/uL (4.0-11.0) Red Blood Count 2.44 x10^6/uL (3.50-5.40) 2.39 x10^6/uL (3.50-5.40) Hemoglobin 7.9 g/dL (12.0-15.5) 7.8 g/dL (12.0-15.5) Hematocrit 22.8 % (36.0-47.0) 22.2 % (36.0-47.0) Mean Corpuscular Volume 93 fL (79-100) 93 fL (79-100) Mean Corpuscular Hemoglobin 32 pg (25-35) 33 pg (25-35) Mean Corpuscular Hemoglobin Concent 35 g/dL (31-37) 35 g/dL (31-37) Red Cell Distribution Width 14.2 % (11.5-14.5) 14.2 % (11.5-14.5) Platelet Count 59 x10^3/uL (140-400) 52 x10^3/uL (140-400) Neutrophils (%) (Auto) 70 % (31-73) Lymphocytes (%) (Auto) 21 % (24-48) Monocytes (%) (Auto) 9 % (0-9) Eosinophils (%) (Auto) 0 % (0-3) Basophils (%) (Auto) 0 % (0-3) Neutrophils # (Auto) 1.1 x10^3uL (1.8-7.7) Lymphocytes # (Auto) 0.3 x10^3/uL (1.0-4.8) Monocytes # (Auto) 0.1 x10^3/uL (0.0-1.1) Eosinophils # (Auto) 0.0 x10^3/uL (0.0-0.7) Basophils # (Auto) 0.0 x10^3/uL (0.0-0.2) Reticulocyte Count (auto) 1.3 % (0.5-2.5) Iron Level 235 ug/dL (50-170) Total Iron Binding Capacity 252 ug/dL (250-450) Iron Saturation 93 % (15-34) Ferritin 1484 ng/mL (8-252) Vitamin B12 Level 1030 pg/mL (247-911) Serum Folate 14.06 ng/ml (3.2-20.0) Microbiology 10/28/17 Blood Culture - Preliminary, Resulted NO GROWTH AFTER 2 DAYS Medications Current Medications Pantoprazole Sodium (PROTONIX VIAL for IV PUSH) 80 mg 1X ONCE IVP Last administered on 10/27/17at 16:02; Start 10/27/17 at 15:45; Stop 10/27/17 at 15:46 ; Status DC Sodium Chloride 1,000 ml @ 75 mls/hr [id number] IV Last administered on at 16:02; Start 10/27/17 at 15:53; Stop 10/28/17 at 09:37; Status DC Pantoprazole Sodium 80 mg/ Sodium Chloride 100 ml @ 10 mls/hr Q10H IV Last administered on 10/29/17at 03:18; Start 10/27/17 at 16:15; Stop 10/29/17 at 10:23 ; Status DC Piperacillin Sod/ Tazobactam Sod 3.375 gm/Sodium Chloride 50 ml @ 100 mls/hr Q6HRS IV Last administered on 8/26/18at 06:29; Start 10/27/17 at 18:00; Stop at 09:37; Status DC Cyclobenzaprine HCl (Flexeril) 10 mg QHS PO Last administered on 10/29/17 21: 00; Start 10/27/17 at 21:15 Gemfibrozil (Lopid) 600 mg BID PO Last administered on 10/30/17 09:14; Start 10/27/17 at 21:15 Vitamin B Complex (Folbic Tablet) 1 tab DAILY PO Last administered on 10:08; Start 10/28/17 at 10:00 Vitamin D (Vitamin D3) 1,000 unit DAILY PO Last administered on 10/30/17 09:14 ; Start 10/28/17 at 12:00 Colesevelam HCl (Welchol) 1,875 mg BID PO Last administered on 10/30/17 09:14 ; Start 10/28/17 at 12:00 Ferrous Sulfate (Feosol) 325 mg DAILY PO Last administered on 10/30/17 09:14; Start 10/28/17 at 12:00 Folic Acid (Folic Acid) 1 mg DAILY PO Last administered on 10/30/17 09:14; Start 10/28/17 at 12:00 Tbo-Filgrastim (Granix) 480 mcg QHS SQ Last administered on 10/29/17 21:00; Start 10/29/17 at 21:00 Prednisone (Prednisone) 60 mg DAILY PO Last administered on 10/30/17 09:14; Start 10/29/17 at 10:00 Pantoprazole Sodium (Protonix) 40 mg DAILYAC PO Last administered on 10/30/17 09:14; Start 10/30/17 at 07:30 Active Scripts Active Reported Ferrous Sulfate 325 Mg Tablet 1 Tab PO DAILY Cyclobenzaprine Hcl 10 Mg Tablet 1 Tab PO QHS Ondansetron Odt (Ondansetron) 4 Mg Tab.rapdis 1 Tab PO PRN Q6-8HRS Folic Acid 1 Mg Tablet 1 Tab PO DAILY Vytorin 10-40 Mg Tablet (Ezetimibe/Simvastatin) 1 Each Tablet 1 Each PO HS Fish Oil 1,000 Mg Softgel ([place]-3 Fatty Acids/Fish Oil) 1 Each Capsule 4 Each PO DAILY Vitamin D3 (Cholecalciferol (Vitamin D3)) 1,000 Unit Tablet 1 Tab PO DAILY Gemfibrozil 600 Mg Tablet 600 Mg PO BID Welchol (Colesevelam Hcl) 625 Mg Tablet 1,875 Mg PO BID Vitals/I & O Vital Sign - Last 24 Hours 10/29/17 10/29/17 10/29/17 10/30/17 15:00 19:00 23:00 03:00 Temp 98.3 98.2 98.3 98.4 98.3 98.2 98.3 98.4 Pulse 75 17 80 84 Resp 20 17 18 16 B/P (MAP) 116/65 (82) 118/70 (86) 123/64 (83) 122/64 (83) Pulse Ox 98 98 99 98 O2 Delivery Room Air Room Air Room Air Room Air 10/30/17 07:00 Temp 98.9 98.9 Pulse 72 Resp 16 B/P (MAP) 105/59 (74) Pulse Ox 99 O2 Delivery Room Air Intake and Output 10/29/17 10/29/17 10/30/17 15:00 23:00 07:00 Intake Total 550 ml 1000 ml 0 ml Balance 550 ml 1000 ml 0 ml CARLOS MANCERA MD Oct 30, 2017 11:55
[2017-10-30] MEDS ORDERED: PRED20TA PO (13:09)
[2017-10-30] MEDS ORDERED: Pantoprazole PO (13:09)
--- NOTE | 2017-10-30 16:43 | PDOC3 ---
Discharge Summary [facility] Date of Admission: Oct 27, 2017 Discharge Date: Oct 30, 2017 Admitting Diagnosis GI bleed, pancytopenia from chemo Final Diagnosis same CONSULTS Abril Oglesby Procedures transfusion Brief Hospital Course Ms. Ramirez is a 62 old who presented with: 1. lower GI/rectal bleeding - severe anemia needing acute blood transfusion x 3 units but after her Hgb remained stable, platelets stable after transfusions - GI followed and she was started on 60 mg of prednisone for presumed colitis, C diff was tested but results pending. Tolerating clear liquids and advancing ddiet 2. chemo induced pancytopenia - oncology following received RBC and WBC stimulating meds, she will f/u outpatient with Dr. Oglesby 3. lung cancer, stage IV, non small cell - she is wondering if she should stop treatment Disposition home CONDITION AT DISCHARGE: Improved, Stable Diet advance as tolerated Scheduled Cyclobenzaprine Hcl (Cyclobenzaprine Hcl), 1 TAB PO QHS, (Reported) Ferrous Sulfate (Ferrous Sulfate), 1 TAB PO DAILY, (Reported) Folic Acid (Folic Acid), 1 TAB PO DAILY, (Reported) Ondansetron (Ondansetron Odt), 1 TAB PO PRN Q6-8HRS, (Reported) Prednisone (Prednisone), 3 TAB PO DAILY [Pantoprazole], 40 MG PO DAILYAC Discontinued Medications Cholecalciferol (Vitamin D3) (Vitamin D3), 1 TAB PO DAILY, (Reported) Colesevelam Hcl (Welchol), 1,875 MG PO BID, (Reported) Cyclobenzaprine Hcl (Cyclobenzaprine Hcl), 1 TAB PO TID, (Reported) Dexamethasone (Dexamethasone), 4 TAB PO DAILY, (Reported) Docusate Sodium (Stool Softener), 100 MG PO BID, (Reported) Ezetimibe/Simvastatin (Vytorin 10-40 Mg Tablet), 1 EACH PO HS, (Reported) Gemfibrozil (Gemfibrozil), 600 MG PO BID, (Reported) Iron, Carb & Gluc/Fa/B12/C/Dss (Ferralet 90 Dual-Iron Tablet), 1 TAB PO DAILY, ( Reported) [place]-3 Fatty Acids/Fish Oil (Fish Oil 1,000 Mg Softgel), 4 EACH PO DAILY, ( Reported) Follow Up 1-2 weeks Keyshawn CARPENTER MD Oct 30, 2017 16:43
== END 2017-10-30 22:54 | disposition home or self-care (01) | DRG 809 ==
LOC: ER 14:05 → 5 SOUTH 15:50
PROVIDERS: ADMIT Family Medicine; ATTEND Family Medicine
PROC: 30233R1 Transfusion of Nonautologous Platelets into Peripheral Vein, Percutaneous Approach (ICD-10-PCS; principal; 2017-10-28)
DX: D61.810 Antineoplastic chemotherapy induced pancytopenia (principal); C34.90 Malignant neoplasm of unspecified part of unspecified bronchus or lung; C79.70 Secondary malignant neoplasm of unspecified adrenal gland; K92.2 Gastrointestinal hemorrhage, unspecified; E78.00 Pure hypercholesterolemia, unspecified; E11.9 Type 2 diabetes mellitus without complications; I10 Essential (primary) hypertension; E78.5 Hyperlipidemia, unspecified; F17.210 Nicotine dependence, cigarettes, uncomplicated; K21.9 Gastro-esophageal reflux disease without esophagitis; T45.1X5A Adverse effect of antineoplastic and immunosuppressive drugs, initial encounter; M19.90 Unspecified osteoarthritis, unspecified site; K64.9 Unspecified hemorrhoids; Z88.1 Allergy status to other antibiotic agents; Z88.2 Allergy status to sulfonamides; Z79.2 Long term (current) use of antibiotics; Z79.899 Other long term (current) drug therapy; Z87.11 Personal history of peptic ulcer disease; Z86.010 Personal history of colon polyps; Z85.118 Personal history of other malignant neoplasm of bronchus and lung
CPT/HCPCS: 36415; 71045; 80053; 82607; 82728; 82746; 83540; 83550; 83605; 84484; 85007; 85014; 85018; 85025; 85027; 85045; 85049; 85610; 86850; 86900; 86901; 86920; 87040; 87324; 93005; 96374; C9113; J1442; J2543; J7030; J7512; P9016; P9035; 99285-25

== ENCOUNTER → 2018-01-10 | Outpatient (CLI) | payer BC ==
[2017-11-28 12:49] VITALS: BP 144/68
[~2018-01-10] MED LIST changes: +CONTRAST GIVEN. MC PRN; +FERR325T14 PO; -GEMF600T3 PO; +GEMF600T4 PO; +IOHEXOL 240 MG/ML 50ML VIAL. PO ONE; +IOHEXOL 300 MG/ML 100ML VIAL. IV ONE; +IRON1TAB2 PO; +METF500T16 PO; -METF500T5 PO; +PRED20TA PO; +Pantoprazole PO
--- NOTE | 2018-01-10 13:06 | RAD ---
CTA neck, chest, abdomen and pelvis 01/10/2018 CLINICAL INDICATION: Malignant neoplasm of the upper lung, follow-up with prior chemotherapy treatment. COMPARISON: CT chest, abdomen and pelvis 10/12/2017, abdomen and pelvis 08/27/2017, chest and pelvis 07/19/2017, 05/07/[address] neck 12/13/2016 TECHNIQUE: Multiple CT images of the neck, chest, abdomen and pelvis were obtained following intravenous administration of 75 mL Omnipaque 300. *One or more of the following individualized dose reduction techniques were utilized for this examination: 1. Automated exposure control. 2. Adjustment of the mA and/or kV according to patient size. 3. Use of iterative reconstruction technique. FINDINGS: NECK: Visualized intracranial structures, globes and orbits are unremarkable. Mild right maxillary sinus mucosal thickening. Interval progression in size and number of right level 3, right level 4, right level 5B and bilateral supraclavicular lymphadenopathy. [employer] right level 3 lymph node measures 1.4 x 1.7 cm series 2/image 36, previously 0.6 x 0.7 cm. [employer] left supraclavicular lymph node measures 2.8 x 1.8 cm series 2/image 22, previously 1.0 x 2.2 cm. The nasopharynx, nasal cavity, oral cavity, oropharynx, hypopharynx and larynx are unremarkable. There are no destructive osseous lesions. CHEST: There is very slight interval increase in large left upper lobe/hilar mass with contiguous soft tissue extension to the mediastinum measuring 8.3 cm AP at the level of the hilum series 4/image 29 compared to 7.5 cm when measuring a similar fashion. The soft tissue extension lateral to the apical bronchus now measures 3.2 cm, Cullen 2.8 cm. There is increasing consolidation in the medial left upper lobe anterior to the mass which is contiguous to the mass series 4/image 26 which is likely postobstructive. Interval increase in narrowing of the left upper lobe major segmental bronchi. There is mild narrowing of the left upper left lower lobe bronchi and the main left pulmonary artery. There is circumferential soft tissue encasement of the major segmental branches of the left main pulmonary artery. No axillary lymphadenopathy. Mixed stable and worsening of mediastinal lymphadenopathy. [employer] progression in prevascular lymphadenopathy measures 3.4 x 2.7 cm series 4/image 16, previously 3.1 x 2.3 cm interval increase in subcarinal lymphadenopathy measuring 5.4 x 3.9 cm series 4/image 36, Cullen 4.8 x 3.6 cm. Worsening in right hilar lymphadenopathy with central cavitation with conglomerate measuring 3.2 x 2.5 cm series 4/image 32, previously 3.0 x 2.0 cm. The trachea is patent. Mild centrilobular emphysema. Interval increase in left upper lobe interstitial prominence with groundglass and nodular opacities peripheral to the dominant mass and to a lesser extent in the posterior left lower lobe. There is a trace left pleural effusion with mild nodularity most prominent series 4/image 43. There are no destructive osseous lesions. Abdomen and pelvis: Liver unremarkable apart from stable minimal central intrahepatic biliary ductal dilatation. Cholelithiasis in a nondilated gallbladder. Spleen unremarkable. There is a stable large probably fat attenuation right superolateral renal mass displacing the adrenal gland medially with minimal flattening of the superior pole right renal contour measuring 6.2 cm. There are two stable left adrenal gland nodules. Right kidney unremarkable. There are stable clustered tiny to 3 mm nonobstructive left renal calculi in the inferior pole. There is minimal cortical scarring of the left kidney with a few small subcentimeter renal hypodensities which are too small to definitely characterize. Pancreas unremarkable. Abdominal aorta normal in caliber with extensive mixed aortoiliac atheromatous disease. Small and large bowel loops are normal in caliber without obstruction. No retroperitoneal or mesenteric lymphadenopathy. Stable left adnexal cyst measuring 7.6 x 7.2 cm series 5/image 71. Stable right adnexal hypodensity measuring 3.0 cm. No iliac or inguinal lymphadenopathy. Urinary bladder and uterus unremarkable. Small fat-containing periumbilical hernia. There are no destructive osseous lesions. IMPRESSION: NECK: 1. Progression in cervical and cervical navicular lymphadenopathy compatible with khari metastatic disease. CHEST: 1. Progression in primary left upper lobe/hilar lung malignancy. 2. Progression in mediastinal and hilar khari metastatic disease. 3. Slight increase in left lung interstitial opacities, may represent postobstructive pneumonitis versus interstitial spread of tumor. 4. Slight increase in trace left pleural effusion and probable left pleural metastatic disease. Abdomen and pelvis: 1. Stable left adrenal metastatic disease. 2. Otherwise no evidence of abdominal pelvic lymphadenopathy. 3. Additional stable findings in the body the report. Electronically signed by: Jorge Frederick MD (01/10/2018 1:02 PM) [id number]
== END | disposition home or self-care (01) ==
LOC: CT 09:09
PROVIDERS: ATTEND Internal Medicine Hematology & Oncology
DX: C34.12 Malignant neoplasm of upper lobe, left bronchus or lung (principal); J43.2 Centrilobular emphysema; J90 Pleural effusion, not elsewhere classified; K80.20 Calculus of gallbladder without cholecystitis without obstruction; N20.0 Calculus of kidney; I70.0 Atherosclerosis of aorta; K42.9 Umbilical hernia without obstruction or gangrene; F17.200 Nicotine dependence, unspecified, uncomplicated; Z92.21 Personal history of antineoplastic chemotherapy
CPT/HCPCS: 70491; 71260; 74177; Q9966; Q9967

== ENCOUNTER → 2018-03-29 | Outpatient (CLI) | payer BC ==
[2017-11-28 12:49] VITALS: BP 144/68
[~2018-03-29] MED LIST changes: -CONTRAST GIVEN. MC PRN; -GEMF600T4 PO; +GEMF600T8 PO; +HYDR-2145 PO; -HYDR12.53 PO; +HYDR12.575 PO; -HYDR25TA9 PO
--- NOTE | 2018-03-29 17:33 | RAD ---
PQRS Compliance Statement: One or more of the following individualized dose reduction techniques were utilized for this examination: 1. Automated exposure control 2. Adjustment of the mA and/or kV according to patient size 3. Use of iterative reconstruction technique CT CHEST neck, ABD PELVIS W/CONTRAST Clinical Indication: F/U LUNG CA Comparison: CT neck, chest, abdomen and pelvis with contrast, January 10, 2018. TECHNIQUE: Helical CT imaging of the neck, chest, abdomen, and pelvis is performed after 75 cc Omnipaque 300 IV contrast. Findings: Visualized brain without midline shift. The globes and orbits are intact. Moderate mucosal thickening inferiorly in the right maxillary sinus. No air-fluid level. The mastoid air cells are aerated. The parapharyngeal fat planes are preserved. Parotid and submandibular glands are symmetric. Heterogeneous thyroid gland. Hypopharynx is unremarkable. Right level 3 cervical adenopathy is improved. Right level 4 adenopathy is unchanged. Bilateral supraclavicular adenopathy is mildly improved. For example there is a left supraclavicular lymph node measuring 1.6 x 2.3 cm, image 27 of series 2. Lymph node previously measured 2 x 2.8 cm. Mild degenerative spondylosis of the cervical spine. Bulky mediastinal adenopathy is mildly improved. For example subcarinal lymph node measures 2.6 x 3.9 cm, previously 4.4 x 5.2 cm. Necrotic appearing right hilar mass or lymph nodes is unchanged, image 29 of series 4. Inferior left hilar adenopathy is mildly improved. Left upper lobe and hilar mass has decreased in size. Approximate measurement at the zarina is 6.2 x 4 cm, previously 8.1 x 6 cm. The mass in the left upper lobe is also smaller and is less solid, adjacent to the mediastinum measuring 5.3 x 3.5 cm, previously about 7.3 x 5 cm. Mass effect on left bronchovascular structures is improved. Likely postobstructive opacities in the anterior left upper lobe are improved. There are mild groundglass opacities now seen in the anterior left upper lobe. There is no large central pulmonary embolus. Coronary artery disease. Cardiac size normal, no pericardial effusion. Small left pleural effusion has resolved. Mild upper lobe centrilobular emphysema. Cholelithiasis. 2 left adrenal nodules are stable. Large right adrenal myelolipoma is stable. Severe atherosclerotic calcification and mural thrombus of the abdominal aorta. No aneurysm. Moderate-sized fat-containing periumbilical hernia. No hydronephrosis. Nonobstructing left renal calculi are stable. Small left renal hypodensities are unchanged, incompletely characterized. Stomach unremarkable. No dilated small bowel. Scattered stool in the colon. No colon wall thickening. The appendix is normal. There is no mesenteric or retroperitoneal adenopathy. The urinary bladder is normal. Right adnexal hypodensity measures 4.1 cm, previously 3.5 cm. Large left adnexal cyst is unchanged. Uterus unremarkable. No pelvic free fluid. No osteolytic or blastic lesion is identified. IMPRESSION: 1. Overall findings in the neck and chest are improved. 2. Right level 3 cervical and bilateral supraclavicular adenopathy is mildly improved. 3. Left upper lobe/hilar mass has decreased in size. Mediastinal adenopathy is mildly improved. 4. Small left pleural effusion has resolved. Postobstructive opacities in the anterior left upper lobe are still present but improved. 5. Left adrenal metastatic disease is unchanged. 6. Right adnexal hypodensity has mildly increased in size. 7. Other incidental findings as above. Electronically signed by: Regan Lomeli MD (03/29/2018 5:28 PM) [id number]
--- NOTE | 2018-03-30 08:30 | RAD ---
See chest and abdomen and pelvis CT report on the same day. Electronically signed by: Fidel Irby MD (03/30/2018 8:25 AM) [facility]
== END | disposition home or self-care (01) ==
LOC: CT 08:34
PROVIDERS: ATTEND Internal Medicine Hematology & Oncology
DX: C34.12 Malignant neoplasm of upper lobe, left bronchus or lung (principal); J43.2 Centrilobular emphysema; R91.8 Other nonspecific abnormal finding of lung field; N20.0 Calculus of kidney; K80.20 Calculus of gallbladder without cholecystitis without obstruction; K42.9 Umbilical hernia without obstruction or gangrene; I25.10 Atherosclerotic heart disease of native coronary artery without angina pectoris; I70.0 Atherosclerosis of aorta; M47.812 Spondylosis without myelopathy or radiculopathy, cervical region; F17.200 Nicotine dependence, unspecified, uncomplicated
CPT/HCPCS: 70491; 71260; 74177; Q9966; Q9967

== ENCOUNTER 2018-04-04 08:31 | Outpatient (CLI) | payer BC ==
[~2018-04-04] VITALS: Ht 160 cm; Wt 65.8 kg
[2018-04-04] VITALS (8 sets, daily range): BP systolic 103–146; BP diastolic 65–88
[~2018-04-04 08:31] MED LIST changes: -IOHEXOL 240 MG/ML 50ML VIAL. PO ONE; -IOHEXOL 300 MG/ML 100ML VIAL. IV ONE
[2018-04-04] MEDS ORDERED: COLE625T12 PO (08:53)
[2018-04-04] MEDS ORDERED: DEXA4TAB PO (08:53)
[2018-04-04] MEDS ORDERED: SENN1TAB50 PO (08:53)
[2018-04-04] MEDS ORDERED: PANT40GR PO (08:53)
[2018-04-04] MEDS ORDERED: magic mouthwash PO (08:53)
[2018-04-04] MEDS ORDERED: GEMF600T8 PO (08:53)
[2018-04-04] MEDS ORDERED: FLUC100T4 PO (08:53)
[2018-04-04] MEDS ORDERED: FERR325T14 PO (08:53)
[2018-04-04] MEDS ORDERED: FOLI1TAB16 PO (08:53)
[2018-04-04] MEDS ORDERED: CYCL10TA2 PO (08:53)
[2018-04-04] MEDS ORDERED: OMEG-165 PO (08:53)
[2018-04-04] MEDS ORDERED: EZET1TAB35 PO (08:53)
[2018-04-04] MEDS ORDERED: CHOL10003 PO (08:53)
[2018-04-04 09:21] LABS: PROTHROMBIN TIME PATIENT 13.4 SEC (11.7-14.0)
[2018-04-04 09:22] LABS: BASO % 0 % (0-3); CALCIUM 9.8 mg/dL (8.5-10.1); EOS % 0 % (0-3); GFR 56.4; HEMATOCRIT 37.3 % (36.0-47.0); HEMOGLOBIN 12.3 g/dL (12.0-15.5); LYMPH # 0.5 x10^3/uL (1.0-4.8); LYMPH % 8 % (24-48); MEAN CORPUSCULAR HEMOGLOBIN 31 pg (25-35); MEAN CORPUSCULAR HGB CONC 33 g/dL (31-37); MEAN CORPUSCULAR VOLUME 93 fL (79-100); MONO # 0.5 x10^3/uL (0.0-1.1); MONO % 9 % (0-9); NEUT # 5.1 x10^3uL (1.8-7.7); NEUT % 83 % (31-73); PLATELET COUNT 334 x10^3/uL (140-400); POTASSIUM 3.9 mmol/L (3.5-5.1); RED BLOOD COUNT 4.02 x10^6/uL (3.50-5.40); RED CELL DISTRIBUTION WIDTH 18.7 % (11.5-14.5); WHITE BLOOD COUNT 6.1 x10^3/uL (4.0-11.0)
[2018-04-04] MEDS ORDERED: HEPARIN PF 500 UNIT/5 ML DISP.SYRIN. IV ONE ×2 (10:29→11:45)
[2018-04-04] MEDS ORDERED: LIDOCAINE 1%/EPI 1:100,000 20 ML VIAL. ONE (10:29)
[2018-04-04] MEDS ORDERED: fentaNYL PF VIAL 100 MCG/2 ML VIAL ONE (11:19)
[2018-04-04] MEDS ORDERED: MIDAZOLAM HCL/PF 5 MG/5 ML VIAL. ONE (11:19)
[2018-04-04] MEDS ORDERED: LIDOCAINE 1%/EPI 1:100,000 20 ML VIAL. IJ ONE (11:45)
[2018-04-04] MEDS ORDERED: fentaNYL PF VIAL 100 MCG/2 ML VIAL IV ONE (11:45)
[2018-04-04] MEDS ORDERED: MIDAZOLAM HCL/PF 5 MG/5 ML VIAL. IV ONE (11:45)
[2018-04-04 11:46] LABS: % BANDS 10 % (0-9); % LYMPHS 9 % (24-48); % MONOS 6 % (0-10); % SEGS 75 % (35-66)
[2018-04-04 11:49] LABS: ANISOCYTOSIS SLIGHT; PLT ESTIMATE ADEQUATE (ADEQUATE); POIKILOCYTOSIS SLIGHT
--- NOTE | 2018-04-04 13:12 | PDOC ---
MODERATE SEDATION ASSESSMENT RISKS/ALTERNATIVES Risks/Alternatives Risks and alternatives of this type of sedation and procedure discussed with: RISK/ALTERNATIVES: Patient H & P ON CHART H & P H & P on chart and reviewed for co-morbid conditions and appropriate labs. H&P ON CHART: Yes STATUS PREG STATUS ASSESSED: Yes MEDS/ALLERGIES REVIEWED Meds/Allergies Reviewed Medications and Allergies including time and route of recently administered narcotics and sedatives. MEDS/ALLERGIES REVIEWED: Yes ASA RATING ASA RATING: II AIRWAY ASSESSMENT Airway Assessment Airway patency, oral function limitations, presence of caps, crowns, dentures, partials, and ability to extend neck assessed. AIRWAY ASSESSMENT: Yes MALLAMPATI SCORE MALLAMPATI SCORE: II PRE-SEDATION ASSESSMENT PRE-SEDATION ASSESSMENT: Yes VIRY DUMONT MD Apr 04, 2018 13:12
--- NOTE | 2018-04-04 13:13 | PDOC ---
BRIEF OPERATIVE NOTE Pre-Op Diagnosis Lung cancer Post-Op Diagnosis same Procedure Performed Port Surgeon Yamel Anesthesia Type: Conscious Sedation Findings Port Complications No immediate VIRY DUMONT MD Apr 04, 2018 13:13
--- NOTE | 2018-04-04 13:14 | PDOC1 ---
History and Physical Date of Procedure Date of Admission History of Present Illness Reason for Visit Lung cancer Past Medical History Past Medical History see nursing pre-op assessment Current Medications Current Medications Current Medications Cefazolin Sodium 50 ml @ 100 mls/hr 1X ONCE IV Last administered on at 12:03; Start 04/04/18 at 08:45; Stop 04/04/18 at 09:14; Status DC Lidocaine/ Epinephrine (LIDOCAINE 1%-EPI 1:100,000 Multi-Dose) 20 ml STK-MED ONCE .ROUTE ; Start 04/04/18 at 10:29; Stop 04/04/18 at 10:31; Status DC Heparin Sodium (Porcine) (Hep Lock Adult) 500 unit STK-MED ONCE IV ; Start 04/04 at 10:29; Stop 04/04/18 at 10:31; Status DC Cefazolin Sodium 50 ml @ As Directed STK-MED ONCE IV ; Start 04/04/18 at 11:19; Stop 04/04/18 at 11:21; Status DC Midazolam HCl (Versed) 5 mg STK-MED ONCE .ROUTE ; Start 04/04/18 at 11:19; Stop 04/04/18 at 11:21; Status DC Fentanyl Citrate (Fentanyl 2ml Vial) 100 mcg STK-MED ONCE .ROUTE ; Start at 11:19; Stop 04/04/18 at 11:21; Status DC Midazolam HCl (Versed) 5 mg 1X ONCE IV Last administered on 04/04/18at 12:04; Start 04/04/18 at 11:45; Stop 04/04/18 at 11:46; Status DC Fentanyl Citrate (Fentanyl 2ml Vial) 100 mcg 1X ONCE IV Last administered on at 12:04; Start 04/04/18 at 11:45; Stop 04/04/18 at 11:46; Status DC Lidocaine/ Epinephrine (LIDOCAINE 1%-EPI 1:100,000 Multi-Dose) 20 ml 1X ONCE IJ Last administered on 04/04/18at 12:02; Start 04/04/18 at 11:45; Stop at 11:46; Status DC Cefazolin Sodium 50 ml @ 100 mls/hr 1X ONCE IV ; Start 04/04/18 at 11:45; Stop 04/04/18 at 12:14; Status DC Heparin Sodium (Porcine) (Hep Lock Adult) 500 unit 1X ONCE IV Last administered on 04/04/18at 12:08; Start 04/04/18 at 11:45; Stop 04/04/18 at 11:46 ; Status DC Active Scripts Active Reported [magic mouthwash] 10 Ml PO TID PRN Welchol (Colesevelam Hcl) 625 Mg Tablet 1,875 Mg PO TID Folic Acid 1 Mg Tablet 1 Tab PO DAILY Protonix (Pantoprazole Sodium) 40 Mg Granpkt.dr 40 Mg PO DAILY Dexamethasone 4 Mg Tablet 2 Tab PO DAILY Vytorin 10-40 Mg Tablet (Ezetimibe/Simvastatin) 1 Each Tablet 1 Tab PO HS Cyclobenzaprine Hcl 10 Mg Tablet 1 Tab PO HS Ferrous Sulfate 325 Mg Tablet 1 Tab PO DAILY Stool Soft-Stimulant Lax Tab (Sennosides/Docusate Sodium) 1 Each Tablet 1 Each PO DAILY Vitamin D3 (Cholecalciferol (Vitamin D3)) 1,000 Unit Tablet 2 Tab PO DAILY Fish Oil 1,000 mg Softgel ([place]-3S/Dha/Epa/Fish Oil) 1 Each Capsule 1 Each PO TID Fluconazole 100 Mg Tablet 1 Tab PO DAILY Gemfibrozil 600 Mg Tablet 1 Tab PO BID Allergies Allergies: Coded Allergies: Sulfa (Sulfonamide Antibiotics) (Unverified Allergy, Intermediate, rash, ) doxycycline (Verified Allergy, Intermediate, Hives, 11/28/17) niacin (Unverified Allergy, Intermediate, rash, 11/28/17) Physical Exam Vital Signs Vital Signs Date Time Temp Pulse Resp B/P (MAP) Pulse Ox O2 Delivery O2 Flow Rate FiO2 04/04/18 12:09 87 20 98 Room Air 04/04/18 12:04 2.0 04/04/18 09:13 98.1 121/79 (93) 98.1 Other see nursing pre-op assessment Assessment Assessment Lung cancer Plan Plan VIRY Madison MD Apr 04, 2018 13:14
--- NOTE | 2018-04-04 13:24 | RAD ---
Procedure: Port-A-Cath placement Clinical Indication: 62-year-old with lung cancer Sedation: Conscious sedation was administered with a total intraprocedural zuce-by-aegz time of 44 minutes. The patient was monitored by a qualified independent observer throughout the time of sedation. Please refer to the medical record for exact doses of medications utilized to achieve moderate sedation. Antibiotics: Antibiotic was administered intravenously within 1 hour of the procedure start time. Exposure: Fluoro Time: 0.2 minutes Images: 1 Contrast: None Sterility: All elements of maximal sterile barrier technique including the use of a cap, mask, sterile gown, sterile gloves, large sterile sheet, appropriate hand hygiene, and 2% chlorhexidine for cutaneous antisepsis (or acceptable alternative antiseptic per current guidelines) were followed for this procedure. If ultrasound guidance was utilized, sterile ultrasound techniques were followed including use of a sterile probe cover. Consent: The procedure was explained in its entirety to the patient or the patients designated claim representative by a member of the treatment team, including a discussion of the risks, benefits and commonly accepted alternatives to the procedure, as well as the expected consequences of no therapy whatsoever. Discussion of the risks included, but was not limited to, those that are most frequent and those that are rare but possibly severe or life-threatening, as well as the possibility of unforeseen complications. Technique and Findings: Ultrasound interrogation of the right neck revealed patency and compressibility of the internal jugular vein. A hardcopy ultrasound image was recorded as a 21-gauge micropuncture needle was used to gain access to this vessel. The needle was exchanged over a wire for a peel-away sheath. The skin over the ipsilateral anterior chest wall was then copiously anesthetized with 1% lidocaine plus epinephrine, and a small dermatotomy was made. Blunt dissection techniques were used to create a pocket for the port. The port was then tunneled subcutaneously towards the neck dermatotomy then deployed under fluoroscopic guidance through the peel-away sheath such that the distal tip resided in the proximal right atrium. The port was accessed and found to flush and aspirate with ease. The port was packed with heparin. The pocket was copiously irrigated with sterile saline then closed with deep interrupted and running subcuticular 4-0 Vicryl suture. Dermabond was used to close the neck dermatotomy. Complications: None Impression: 1. Right IJ Port-A-Cath as described
--- NOTE | 2018-04-04 14:14 | NUR ---
Discharge Note: MEREDITH DELANEY Discharge instructions and discharge home medications reviewed with Patient and a copy given. All questions have been answered and understanding verbalized. The following instructions and handouts were given: moderate sedation and implanted port instructions Discontinued lines and drains: Peripheral IV intact. Patient discharged to Home or Self Care withFamily Membera Wheelchair
== END 2018-04-04 14:17 | disposition home or self-care (01) ==
LOC: INTRAD 08:31
PROVIDERS: ATTEND Internal Medicine Hematology & Oncology
DX: C34.12 Malignant neoplasm of upper lobe, left bronchus or lung (principal); Z88.2 Allergy status to sulfonamides; Z88.1 Allergy status to other antibiotic agents; Z79.01 Long term (current) use of anticoagulants; Z79.899 Other long term (current) drug therapy
CPT/HCPCS: 36415; 36561; 76937; 77001; 80048; 85025; 85610; 99152; 99153; A4215; C1788; C1892; J0690; J2250; J3010; J3490; 85007; C1751

== ENCOUNTER → 2018-06-04 | Outpatient (CLI) | payer BC ==
[2018-04-04 13:45] VITALS: BP 103/65
[~2018-06-04] MED LIST changes: +CONTRAST GIVEN. MC PRN; +FLUC100T4 PO; +HEPARIN PF 500 UNIT/5 ML DISP.SYRIN. IV ONE; +IOHEXOL 240 MG/ML 50ML VIAL. PO ONE; +IOHEXOL 300 MG/ML 100ML VIAL. IV ONE; +OMEG-165 PO; +PANT40GR PO; +SENN1TAB30 PO; +magic mouthwash PO
--- NOTE | 2018-06-04 14:44 | RAD ---
CT CHEST ABD PELVIS W/CONTRAST Indication: Malignant neoplasm left upper lung Technique: Postcontrast CT imaging was performed of the chest, abdomen, pelvis, multiplanar reconstruction images submitted. Oral contrast was also given. One or more of the following individualized dose reduction techniques were utilized for this examination: 1. Automated exposure control 2. Adjustment of the mA and/or kV according to patient size 3. Use of iterative reconstruction technique. Comparison: March 29, 2018 CHEST: Findings: There is persistent left upper lobe mass with some internal air bronchograms extending to the left hilar region and proximal aspect of the left lower lobe as seen previously. Maximal size is about 4 cm transverse by about 6.2 cm AP by about 7.7 cm CC. Mass measures somewhat smaller, previous greatest dimension about 4.7 cm transverse by 6.6 cm AP by 8.1 cm CC. There is again some more peripheral lingular density anteriorly. No new mass is identified. There is again centrilobular emphysema. There is no new pleural fluid. There is again minimal pericardial fluid. There is coronary calcification. Subcarinal khari mass about 2.1 cm short axis dimension previously measured about 2.7 cm. There are again hilar nodes bilaterally, largest on the right about 1.3 cm short axis dimension versus previously about 1.6 cm. Largest left hilar khari mass about 1 cm short axis dimension previously measured about 1.3 cm. Largest AP window node measures about 1 cm short axis dimension, previously about 1.5 cm. There are some other mediastinal nodes as seen previously overall smaller. Large mass more superiorly of the mediastinum posteriorly measures about 1.6 cm short axis dimension, previously about 2 cm. There is right internal jugular port catheter. IMPRESSION: 1. Previously seen left perihilar mass primarily extending to the left upper lobe is smaller. Previously seen lymphadenopathy has decreased. There is no new pulmonary nodularity. 2. There is centrilobular emphysema. 3. There is coronary calcification. Abdomen pelvis: FINDINGS: Superior left adrenal mass is somewhat smaller at 2.2 cm transverse by 1.9 cm AP by 1.9 cm cc versus previously 2.5 cm transverse by 2.1 cm AP by 2.1 cm cc. More inferior left adrenal mass measuring 2.9 cm transverse by 2.6 cm AP by 3.1 cm cc is slightly smaller as previously about 2.7 cm transverse by 2.9 cm AP by 3.2 cm cc. There is again large fat-containing mass in the region of the right adrenal gland on the order of 6.7 cm greatest dimension. There is again cholelithiasis. No new focal abnormality is identified of the liver, pancreas, spleen. Both kidneys enhance, no hydronephrosis. There are couple of small nonobstructive left renal calculi with the largest about 0.4 cm, also a couple of very small right renal calculi. There is stable small hypodense lesion of the mid left kidney about 0.7 cm. Bowel is not dilated. There is no free air or free fluid. Normal appendix is visualized. There is fat-containing ventral hernia as seen previously with the neck about 2 cm transverse and hernia sac about to 4 cm transverse. There is again large focus of hypodensity of the more central pelvic region about 7.9 cm AP by 7.7 cm transverse by about 7.9 cm CC, similar. There is adjacent smaller hypodense lesion of the right adnexa more posteriorly about 2.9 cm AP by 2.7 cm transverse by 3.5 cm cc overall similar. There is atherosclerotic calcification of the abdominal aorta and iliac arteries. There is grade 1 anterior spondylolisthesis at L4-5, multilevel facet degenerative change. IMPRESSION: 1. Previously seen left adrenal masses are somewhat smaller. 2. There is again fairly large cystic lesion of the pelvis greater centrally, smaller focus on the right. Findings are again concerning for ovarian neoplasm such as cystoadenoma, cystadenocarcinoma not excludable. 3. There is again large right adrenal myelipoma. 4. There is cholelithiasis. 5. There are small bilateral renal calculi. 6. There is again fat-containing ventral hernia. Electronically signed by: Travis Solo MD (06/04/2018 2:41 PM) [id number]
== END | disposition home or self-care (01) ==
LOC: CT 11:03
PROVIDERS: ATTEND Internal Medicine Hematology & Oncology
DX: C34.12 Malignant neoplasm of upper lobe, left bronchus or lung (principal); K80.20 Calculus of gallbladder without cholecystitis without obstruction; J43.2 Centrilobular emphysema; N20.0 Calculus of kidney; K43.9 Ventral hernia without obstruction or gangrene; E27.8 Other specified disorders of adrenal gland; I70.0 Atherosclerosis of aorta; I25.10 Atherosclerotic heart disease of native coronary artery without angina pectoris; R59.0 Localized enlarged lymph nodes; M43.16 Spondylolisthesis, lumbar region; M48.061 Spinal stenosis, lumbar region without neurogenic claudication
CPT/HCPCS: 71260; 74177; Q9967

== ENCOUNTER → 2018-07-31 | Outpatient (CLI) | payer BC ==
[2018-04-04 13:45] VITALS: BP 103/65
[~2018-07-31] MED LIST changes: -CONTRAST GIVEN. MC PRN
--- NOTE | 2018-07-31 13:12 | RAD ---
CT of the chest, abdomen and pelvis with contrast, 07/31/2018: HISTORY: Follow-up lung malignancy Multidetector CT imaging was performed following oral and IV administration of contrast. Comparison is made to a study from 06/04/2018. There is moderate ongoing mediastinal adenopathy. Some of these nodes have increased slightly in size. For example a node currently measuring 2.2 cm in width, located in the upper mediastinum along the lateral margin of the left innominate vein, measured 1.7 cm in width on the previous study. Bilateral hilar and subcarinal adenopathy is similar to that seen on the previous study. There is a persistent irregular soft tissue mass along the superior aspect of the left hilum. The mass is difficult to reproducibly measure due to its irregular margins, however, it does appears to have increased slightly in size laterally as best seen on coronal images 31 and 32, and along its superomedial margin where a new soft tissue bulge is evident on axial image 15 of series #2. There is mild pleural thickening posteriorly on the left with a probable trace amount of left-sided pleural fluid. Emphysematous changes are present in the lungs. There is no evidence of a hepatic mass. Gallstones are evident in the gallbladder. The pancreas is unremarkable. The spleen shows no abnormality. Several tiny intrarenal calculi are again noted on the left. There is mild bilateral renal cortical scarring. A couple small low density lesions in the left kidney are probably cysts. There is a fatty suprarenal mass on the right which has been thought to represent an adrenal myelolipoma. A 3 cm left adrenal mass is unchanged. There is moderate aortoiliac calcific plaquing. No abdominal or pelvic adenopathy is identified. There is a complicated pelvic mass on the right which cannot be clearly from the uterus. It demonstrates a 9.4 cm thin-walled cystic component which appears to have increased slightly in size. This component lies along the anterior margin of the uterine fundus. There is a smaller 3.7 cm slightly higher density component which is inseparable from the posterior margin of the uterine fundus. This is probably a component of the cystic mass, however, a coexisting exophytic uterine fibroid could also give this appearance. The bowel loops are not dilated. No free fluid or free air is evident in the abdomen or pelvis. There is a small fat-containing ventral hernia just to the right of midline at the upper pelvic level. Moderate multilevel degenerative changes are present in the spine. IMPRESSION: 1. Portions of the left parahilar mass have increased slightly in size since 06/04/2018. 2. Several mediastinal lymph nodes have also increased slightly in size while other nodes are stable. 3. Stable left adrenal nodule. 4. Complex right pelvic mass again most likely of ovarian origin such as a cystadenoma or cystadenocarcinoma. Its cystic component appears to have increased slightly in size. 5. Additional chronic miscellaneous findings as described above. PQRS Compliance Statement: One or more of the following individualized dose reduction techniques were utilized for this examination: 1. Automated exposure control 2. Adjustment of the mA and/or kV according to patient size 3. Use of iterative reconstruction technique Electronically signed by: Armani Cerda MD (07/31/2018 1:10 PM) [facility]
== END | disposition home or self-care (01) ==
LOC: CT 09:13
PROVIDERS: ATTEND Internal Medicine Hematology & Oncology
DX: C34.12 Malignant neoplasm of upper lobe, left bronchus or lung (principal); R19.00 Intra-abdominal and pelvic swelling, mass and lump, unspecified site; R91.8 Other nonspecific abnormal finding of lung field; R59.0 Localized enlarged lymph nodes; K80.20 Calculus of gallbladder without cholecystitis without obstruction; N20.0 Calculus of kidney; E27.9 Disorder of adrenal gland, unspecified; K43.9 Ventral hernia without obstruction or gangrene
CPT/HCPCS: 71260; 74177; Q9966; Q9967

== ENCOUNTER 2018-12-19 10:25 | Inpatient (IN) | payer BC ==
[~2018-12-19] VITALS: Ht 160 cm; Wt 77.6 kg
[~2018-12-19 10:25] MED LIST changes: -HEPARIN PF 500 UNIT/5 ML DISP.SYRIN. IV ONE; -IOHEXOL 240 MG/ML 50ML VIAL. PO ONE; -IOHEXOL 300 MG/ML 100ML VIAL. IV ONE; -SENN1TAB30 PO; +SENN1TAB50 PO
[2018-12-19] MEDS ORDERED: IV NORMAL SALINE 1000ML BAG 1,000 ML IV ONE (10:45)
[2018-12-19] MEDS ORDERED: ONDANSETRON PF 4 MG/2 ML VIAL. IV ONE (10:45)
--- NOTE | 2018-12-19 10:50 | PHYS DOC ---
Past Medical History Past Medical History: Anemia, Cancer, Diabetes-Type II, High Cholesterol, Hypertension, Other Additional Past Medical Histor: hemorrhoids,back spasms,LUNG CA Past Surgical History: Other Additional Past Surgical Histo: addrenal gland biops Alcohol Use: None Drug Use: None Adult General Chief Complaint Chief Complaint: MECHANICAL FALL HPI HPI Patient is a 63 year old female that presents to the ER after she was found on the floor this morning by her at home. The patient states that she did not fall states that she was dreaming and ended up out of bed. Patient has not been eating and drinking over the last 2 days and is a cancer patient (Lung cancer). Patient is coughing in room. The patient appears to be altered on assessment and is a poor historian. Patient is at bedside. Review of Systems Review of Systems Unable to obtain due to altered mental status. Current Medications Current Medications Current Medications Medications (Trade) Dose Ordered Sig/Pelon Start Time Stop Time Status Last Admin Dose Admin Ondansetron HCl (Zofran) 4 mg 1X ONCE 12/19/18 10:45 12/19/18 10:46 DC 12/19/18 11:33 4 MG Sodium Chloride 1,000 ml @ 1,000 mls/hr 1X ONCE 12/19/18 10:45 12/19/18 11:44 DC 12/19/18 11:32 1,000 MLS/HR Allergies Allergies Allergies Coded Allergies Type Severity Reaction Last Updated Verified Sulfa (Sulfonamide Antibiotics) Allergy Intermediate rash 11/28/17 No doxycycline Allergy Intermediate Hives 11/28/17 Yes niacin Allergy Intermediate rash 11/28/17 No Physical Exam Physical Exam Constitutional: Well developed, well nourished, no acute distress, non-toxic appearance. [] HENT: Normocephalic, atraumatic, bilateral external ears normal, oropharynx moist, no oral exudates, nose normal. [] Eyes: PERRLA, EOMI, conjunctiva normal, no discharge. [] Neck: Normal range of motion, no tenderness, supple, no stridor. [] Cardiovascular:Heart rate regular rhythm, no murmur [] Lungs & Thorax: Bilateral breath sounds clear to auscultation [] Abdomen: Bowel sounds normal, soft, no tenderness, no masses, no pulsatile masses. [] Skin: Warm, dry, no erythema, no rash. [] Back: No tenderness, no CVA tenderness. [] Extremities: No tenderness, no cyanosis, no clubbing, ROM intact, no edema. [] Neurologic: Alert and oriented X 1, GCS of 14, normal motor function, normal sensory function, no focal deficits noted. [] Psychologic: Affect normal, judgement reduced, mood normal. [] Current Patient Data Vital Signs Vital Signs Date Time Temp Pulse Resp B/P (MAP) Pulse Ox O2 Delivery O2 Flow Rate FiO2 12/19/18 10:25 98.1 105 20 127/65 (85) 93 Room Air 98.1 Lab Values Laboratory Tests Test 12/19/18 11:20 White Blood Count 7.1 x10^3/uL (4.0-11.0) Red Blood Count 4.10 x10^6/uL (3.50-5.40) Hemoglobin 12.4 g/dL (12.0-15.5) Hematocrit 38.2 % (36.0-47.0) Mean Corpuscular Volume 93 fL (79-100) Mean Corpuscular Hemoglobin 30 pg (25-35) Mean Corpuscular Hemoglobin Concent 33 g/dL (31-37) Red Cell Distribution Width 17.8 % (11.5-14.5) H Platelet Count 244 x10^3/uL (140-400) Neutrophils (%) (Auto) 87 % (31-73) H Lymphocytes (%) (Auto) 5 % (24-48) L Monocytes (%) (Auto) 7 % (0-9) Eosinophils (%) (Auto) 0 % (0-3) Basophils (%) (Auto) 0 % (0-3) Neutrophils # (Auto) 6.2 x10^3/uL (1.8-7.7) Lymphocytes # (Auto) 0.4 x10^3/uL (1.0-4.8) L Monocytes # (Auto) 0.5 x10^3/uL (0.0-1.1) Eosinophils # (Auto) 0.0 x10^3/uL (0.0-0.7) Basophils # (Auto) 0.0 x10^3/uL (0.0-0.2) Platelet Estimate Pending Sodium Level 143 mmol/L (136-145) Potassium Level 3.7 mmol/L (3.5-5.1) Chloride Level 104 mmol/L (98-107) Carbon Dioxide Level 25 mmol/L (21-32) Anion Gap 14 (6-14) Blood Urea Nitrogen 18 mg/dL (7-20) Creatinine 0.8 mg/dL (0.6-1.0) Estimated GFR (Cockcroft-Gault) 72.7 BUN/Creatinine Ratio 23 (6-20) H Glucose Level 79 mg/dL (70-99) Calcium Level 8.4 mg/dL (8.5-10.1) L Magnesium Level 1.9 mg/dL (1.8-2.4) Total Bilirubin 0.7 mg/dL (0.2-1.0) Aspartate Amino Transferase (AST) 18 U/L (15-37) Alanine Aminotransferase (ALT) 12 U/L (14-59) L Alkaline Phosphatase 93 U/L (46-116) Creatine Kinase 37 U/L (26-192) Creatine Kinase MB (Mass) 1.7 ng/mL (0.0-3.6) Creatine Kinase MB Relative Index % (0-4) Troponin I Quantitative < 0.017 ng/mL (0.000-0.055) Total Protein 6.0 g/dL (6.4-8.2) L Albumin 2.6 g/dL (3.4-5.0) L Albumin/Globulin Ratio 0.8 (1.0-1.7) L Laboratory Tests 12/19/18 11:20 Laboratory Tests 12/19/18 11:20 EKG EKG EKG interpreted by Dr. Harden Sinus Rhythm with rate of 99. No STEMI. Radiology/Procedures Radiology/Procedures [][facility] [address] [place] [address] IMAGING REPORT Signed PATIENT: MEREDITH DELANEY ACCOUNT: [id number] : 1955 LOCATION: ER AGE: 63 SEX: F EXAM STATUS: REG ER ORD. PHYSICIAN: REJI FU APRN REASON: cough PROCEDURE: PORTABLE CHEST 1V Examination: PORTABLE CHEST 1V History: Cough Comparison/Correlation: 10/15/2018 CT chest abdomen pelvis with contrast Findings: Portable upright frontal view of the chest was obtained. Right internal jugular Iswyel-x-Gpqb catheter is present terminating overlying the superior cavoatrial junction. Opacification of the left upper thorax is notable since the prior CT exam. Widened right paratracheal stripe is present superiorly corresponding to a mass at this level on the prior CT exam. Right lung field is unremarkable. There is no definite or significant left pleural effusion. Impression: Interval increased opacification of the right upper lung field in this patient with a known mass. This may represent atelectasis and/or increase in size of the left upper lung mass in the interval. Electronically signed by: Marlon William MD (12/19/2018 11:47 AM) [facility] DICTATED and SIGNED BY: MARLON WILLIAM MD DATE: 12/19/18 1147 DICTATED AND SIGNED BY: BOONE CRUZ MD DATE: 12/19/18 1200 CC: REJI FU APRN; Keyshawn HARMON MD; NON,STAFF ~ Examination: CT head and cervical spine without contrast CT HEAD INDICATION: fall, altered mental status COMPARISON: None Available. Exposure: One or more of the following individualized dose reduction techniques were utilized for this examination: 1. Automated exposure control 2. Adjustment of the mA and/or kV according to patient size 3. Use of iterative reconstruction technique TECHNIQUE: 5 mm contiguous axial images were obtained from the skull base to the vertex in both bone and soft tissue algorithm. FINDINGS: There is 4.4 cm cystic isodensity identified in the left frontal lobe with surrounding moderate to severe edema causing mass effect in the left frontal lobe causing [id number] midline shift measuring 7 mm. There is effacement of the anterior horn of the left lateral ventricle and mass effect on the body of the left lateral ventricle. No acute intracranial bleed is evident. The basal cisterns are uneffaced Examination somewhat limited due to mild motion artifact. The visualized paranasal sinuses, mastoid air cells are clear. CT CERVICAL SPINE INDICATION: COMPARISON: None Available. Technique: 2.5 mm contiguous axial images were obtained from the skull base through the cervicothoracic junction in both bone and soft tissue algorithm. Additional sagittal and coronal reconstructions were also performed. FINDINGS: Vertebral body height and alignment are maintained. Cervical lordosis is preserved. The lateral masses of C1 are aligned upon C2. No fractures identified. The bony canal is patent throughout. Multilevel mild degenerative changes cervical spine. Multiple enlarged cervical and mediastinal lymph nodes partially visualized. Partially visualized left apical lung density. Visualized intracranial contents are unremarkable. IMPRESSION: 1. Large masslike density in the left frontal lobe with surrounding edema causing mass effect suspicious for underlying mass/malignancy or metastasis. Recommend MRI with and without contrast for further evaluation if clinically feasible. 2. No acute fracture of the cervical spine. Correlate clinically. 3. Multiple enlarged cervical and partially visualized mediastinal lymph nodes probably metastasis. Electronically signed by: Boone Cruz MD (12/19/2018 11:52 AM) [id number] DICTATED and SIGNED BY: BOONE CRUZ MD DATE: 12/19/18 1152 Course & Med Decision Making Course & Med Decision Making Pertinent Labs and Imaging studies reviewed. (See chart for details) The patient is altered and has not been eating or drinking. Patient appears to have fallen. Will get CT head/neck, Chest x-ray, and labs. Will also give fluids. Dr. Harmon is her primary care provider and discussed with him at 1210 and he agrees to admission. Also Discussed case with Dr. Oglesby who agrees with plan and request palliative care consult. Patient appears to have metastasis to brain with increased AMS as well as worsening lung cancer. Dragon Disclaimer Dragon Disclaimer This electronic medical record was generated, in whole or in part, using a voice recognition dictation system. Departure Departure Impression: Primary Impression: Metastasis Additional Impression: Altered mental status Disposition: ADMITTED INPATIENT Admitting Physician: Yady Harmon Condition: CRITICAL Referrals: Keyshawn HARMON MD (PCP) Problem Qualifiers Primary Impression: Metastasis Area of secondary neoplastic involvement: unspecified site Qualified Codes: C79.9 - Secondary malignant neoplasm of unspecified site Additional Impression: Altered mental status Coma depth: Fabian coma 13-15 Coma timing: at arrival to emergency department REJI FU JUAN Dec 19, 2018 10:50
--- NOTE | 2018-12-19 11:21 | EKG ---
[facility] [address] [place] [address] Test Date: 2018-12-19 Test Time: 10:59:21 Pat Name: MEREDITH DELANEY Department: Room: Gender: F [employer] Technician: : 1955 Requested By: REJI FU Order Number: [id number] Reading MD: Azar Cintron MD Measurements Intervals [place] Rate: 99 P: 50 WY: 148 QRS: 71 QRSD: 90 T: 52 QT: 350 QTc: 454 Interpretive Statements SINUS RHYTHM Electronically Signed On 12-24-2018 15:42:05 CDT by Azar Cintron MD
[2018-12-19 11:27] LABS: BASO % 0 % (0-3); EOS % 0 % (0-3); HEMATOCRIT 38.2 % (36.0-47.0); HEMOGLOBIN 12.4 g/dL (12.0-15.5); LYMPH # 0.4 x10^3/uL (1.0-4.8); LYMPH % 5 % (24-48); MEAN CORPUSCULAR HEMOGLOBIN 30 pg (25-35); MEAN CORPUSCULAR HGB CONC 33 g/dL (31-37); MEAN CORPUSCULAR VOLUME 93 fL (79-100); MONO # 0.5 x10^3/uL (0.0-1.1); MONO % 7 % (0-9); NEUT # 6.2 x10^3/uL (1.8-7.7); NEUT % 87 % (31-73); PLATELET COUNT 244 x10^3/uL (140-400); RED CELL DISTRIBUTION WIDTH 17.8 % (11.5-14.5); WHITE BLOOD COUNT 7.1 x10^3/uL (4.0-11.0)
[2018-12-19 11:38] LABS: CALCIUM 8.4 mg/dL (8.5-10.1); CREATININE 0.8 mg/dL (0.6-1.0); GFR 72.7; POTASSIUM 3.7 mmol/L (3.5-5.1)
[2018-12-19 11:44] LABS: ALBUMIN 2.6 g/dL (3.4-5.0); ALBUMIN/GLOBULIN RATIO 0.8 (1.0-1.7); TOTAL BILIRUBIN 0.7 mg/dL (0.2-1.0)
--- NOTE | 2018-12-19 11:50 | RAD ---
Examination: PORTABLE CHEST 1V History: Cough Comparison/Correlation: 10/15/2018 CT chest abdomen pelvis with contrast Findings: Portable upright frontal view of the chest was obtained. Right internal jugular Rctjcd-e-Acdt catheter is present terminating overlying the superior cavoatrial junction. Opacification of the left upper thorax is notable since the prior CT exam. Widened right paratracheal stripe is present superiorly corresponding to a mass at this level on the prior CT exam. Right lung field is unremarkable. There is no definite or significant left pleural effusion. Impression: Interval increased opacification of the right upper lung field in this patient with a known mass. This may represent atelectasis and/or increase in size of the left upper lung mass in the interval. Electronically signed by: Marlon Villalobos MD (12/19/2018 11:47 AM) [facility]
[2018-12-19 11:52] LABS: CREATINE KINASE 37 U/L (26-192)
--- NOTE | 2018-12-19 11:55 | RAD ---
Examination: CT head and cervical spine without contrast CT HEAD INDICATION: fall, altered mental status COMPARISON: None Available. Exposure: One or more of the following individualized dose reduction techniques were utilized for this examination: 1. Automated exposure control 2. Adjustment of the mA and/or kV according to patient size 3. Use of iterative reconstruction technique TECHNIQUE: 5 mm contiguous axial images were obtained from the skull base to the vertex in both bone and soft tissue algorithm. FINDINGS: There is 4.4 cm cystic isodensity identified in the left frontal lobe with surrounding moderate to severe edema causing mass effect in the left frontal lobe causing zaqg-dj-[id number] midline shift measuring 7 mm. There is effacement of the anterior horn of the left lateral ventricle and mass effect on the body of the left lateral ventricle. No acute intracranial bleed is evident. The basal cisterns are uneffaced Examination somewhat limited due to mild motion artifact. The visualized paranasal sinuses, mastoid air cells are clear. CT CERVICAL SPINE INDICATION: COMPARISON: None Available. Technique: 2.5 mm contiguous axial images were obtained from the skull base through the cervicothoracic junction in both bone and soft tissue algorithm. Additional sagittal and coronal reconstructions were also performed. FINDINGS: Vertebral body height and alignment are maintained. Cervical lordosis is preserved. The lateral masses of C1 are aligned upon C2. No fractures identified. The bony canal is patent throughout. Multilevel mild degenerative changes cervical spine. Multiple enlarged cervical and mediastinal lymph nodes partially visualized. Partially visualized left apical lung density. Visualized intracranial contents are unremarkable. IMPRESSION: 1. Large masslike density in the left frontal lobe with surrounding edema causing mass effect suspicious for underlying mass/malignancy or metastasis. Recommend MRI with and without contrast for further evaluation if clinically feasible. 2. No acute fracture of the cervical spine. Correlate clinically. 3. Multiple enlarged cervical and partially visualized mediastinal lymph nodes probably metastasis. Electronically signed by: Boone Cruz MD (12/19/2018 11:52 AM) [id number]
[2018-12-19 12:42] LABS: % BASOS 1 % (0-3); % LYMPHS 9 % (24-48); % MONOS 6 % (0-10); % SEGS 84 % (35-66); ANISOCYTOSIS SLIGHT; PLT ESTIMATE ADEQUATE (ADEQUATE)
[2018-12-19 14:00] VITALS: BP 123/77
[2018-12-19 15:20] VITALS: BP 135/72
--- NOTE | 2018-12-19 16:36 | PDOC ---
Provider Note Provider Note Med onc consult: 1. Stage 4 Lung ca - recommend hospice, pt agrees. See dictation CARLOS MANCERA MD Dec 19, 2018 16:36
--- NOTE | 2018-12-19 17:56 | PDOC1 ---
History and Physical Date of Admission Date of Admission 12/19/18 Identification/Chief Complaint Chief Complaint found down at home Source Source: Caregiver, Chart review, Patient History of Present Illness History of Present Illness She has metastatic lung cancer and her found her on the floor nest to bed this am and had her brought to the ER and found to have worsening bilateral lung masses and a new finding of brain met. She also has some left lower chest wall tenderness but has not had any noted seizure activity Past Medical History Cardiovascular: CAD, HTN, Hyperlipidemia Pulmonary: COPD, Other GI: GERD, Peptic Ulcer disease Heme/Onc: Cancer (lung) Psych: No pertinent hx Rheumatologic: Other (OA) Infectious disease: No pertinent hx ENT: No pertinent hx Renal/: No pertinent hx Endocrine: Diabetes Dermatology: No pertinent hx Past Surgical History Past Surgical History: Other (port placement) Current Problem List Problem List Problems Medical Problems: (1) Altered mental status Status: Acute (2) Metastasis Status: Acute Current Medications Current Medications Current Medications Medications (Trade) Dose Ordered Sig/Pelon Start Time Stop Time Status Last Admin Dose Admin Cyclobenzaprine HCl (Flexeril) 10 mg HS 12/19/18 21:00 Dexamethasone (Decadron) 8 mg DAILY 12/20/18 09:00 UNV Morphine Sulfate (Morphine Sulfate) 4 mg PRN Q2HR PRN 12/19/18 12:30 12/20/18 18:00 Non-Formulary Medication (Pantoprazole Sodium (Protonix Packet)) 40 mg DAILY 12/20/18 09:00 UNV Ondansetron HCl (Zofran) 4 mg 1X ONCE 12/19/18 10:45 12/19/18 10:46 DC 12/19/18 11:33 4 MG Senna/Docusate Sodium (Senna Plus) 1 tab DAILY 12/20/18 09:00 UNV Sodium Chloride 1,000 ml @ 1,000 mls/hr 1X ONCE 12/19/18 10:45 12/19/18 11:44 DC 12/19/18 11:32 1,000 MLS/HR Allergies Allergies Allergies Coded Allergies Type Severity Reaction Last Updated Verified Sulfa (Sulfonamide Antibiotics) Allergy Intermediate rash 11/28/17 No doxycycline Allergy Intermediate Hives 11/28/17 Yes niacin Allergy Intermediate rash 11/28/17 No ROS Review of System CONSTITUTIONAL: No fever or chills EYES: No recent changes SKIN: No rash or itching CARDIOVASCULAR: No chest pain, syncope, palpitations, or edema RESPIRATORY: No SOB or cough GASTROINTESTINAL: No nausea, vomiting or abdominal pain NEUROLOGICAL: No headaches or weakness ENDOCRINE: No cold or heat intolerance GENITOURINARY: No urgency or frequency of urination MUSCULOSKELETAL: No back pain or joint pain LYMPHATICS: No enlarged lymph nodes PSYCHIATRIC: No anxiety or depression Physical Exam Physical Exam GEN.: No apparent distress. Alert and oriented. HEENT: Head is normocephalic, atraumatic NECK: Supple. LUNGS: diminished breath sounds, left costochondral tenderness. HEART: RRR, S1, S2 present. Peripheral pulses intact ABDOMEN: Soft, nontender. Positive bowel sounds. EXTREMITIES: Without any cyanosis. NEUROLOGIC: Normal speech, normal tone PSYCHIATRIC: Normal affect, normal mood. SKIN: No ulcerations Vitals Vitals Vital Signs Date Time Temp Pulse Resp B/P (MAP) Pulse Ox O2 Delivery O2 Flow Rate FiO2 12/19/18 15:20 98.1 105 28 135/72 (93) 84 Room Air 98.1 Labs Labs Laboratory Tests Test 12/19/18 11:20 12/19/18 13:58 12/19/18 16:58 White Blood Count 7.1 x10^3/uL (4.0-11.0) Red Blood Count 4.10 x10^6/uL (3.50-5.40) Hemoglobin 12.4 g/dL (12.0-15.5) Hematocrit 38.2 % (36.0-47.0) Mean Corpuscular Volume 93 fL (79-100) Mean Corpuscular Hemoglobin 30 pg (25-35) Mean Corpuscular Hemoglobin Concent 33 g/dL (31-37) Red Cell Distribution Width 17.8 % (11.5-14.5) Platelet Count 244 x10^3/uL (140-400) Neutrophils (%) (Auto) 87 % (31-73) Lymphocytes (%) (Auto) 5 % (24-48) Monocytes (%) (Auto) 7 % (0-9) Eosinophils (%) (Auto) 0 % (0-3) Basophils (%) (Auto) 0 % (0-3) Neutrophils # (Auto) 6.2 x10^3/uL (1.8-7.7) Lymphocytes # (Auto) 0.4 x10^3/uL (1.0-4.8) Monocytes # (Auto) 0.5 x10^3/uL (0.0-1.1) Eosinophils # (Auto) 0.0 x10^3/uL (0.0-0.7) Basophils # (Auto) 0.0 x10^3/uL (0.0-0.2) Segmented Neutrophils % 84 % (35-66) Lymphocytes % 9 % (24-48) Monocytes % 6 % (0-10) Basophils % 1 % (0-3) Platelet Estimate Adequate (ADEQUATE) Anisocytosis Slight Sodium Level 143 mmol/L (136-145) Potassium Level 3.7 mmol/L (3.5-5.1) Chloride Level 104 mmol/L (98-107) Carbon Dioxide Level 25 mmol/L (21-32) Anion Gap 14 (6-14) Blood Urea Nitrogen 18 mg/dL (7-20) Creatinine 0.8 mg/dL (0.6-1.0) Estimated GFR (Cockcroft-Gault) 72.7 BUN/Creatinine Ratio 23 (6-20) Glucose Level 79 mg/dL (70-99) Calcium Level 8.4 mg/dL (8.5-10.1) Magnesium Level 1.9 mg/dL (1.8-2.4) Total Bilirubin 0.7 mg/dL (0.2-1.0) Aspartate Amino Transf (AST/SGOT) 18 U/L (15-37) Alanine Aminotransferase (ALT/SGPT) 12 U/L (14-59) Alkaline Phosphatase 93 U/L (46-116) Creatine Kinase 37 U/L (26-192) Creatine Kinase MB (Mass) 1.7 ng/mL (0.0-3.6) Creatine Kinase MB Relative Index % (0-4) Troponin I Quantitative < 0.017 ng/mL (0.000-0.055) Total Protein 6.0 g/dL (6.4-8.2) Albumin 2.6 g/dL (3.4-5.0) Albumin/Globulin Ratio 0.8 (1.0-1.7) Glucose (Fingerstick) 79 mg/dL (70-99) 63 mg/dL (70-99) Laboratory Tests Test 12/19/18 11:20 12/19/18 13:58 12/19/18 16:58 White Blood Count 7.1 x10^3/uL (4.0-11.0) Red Blood Count 4.10 x10^6/uL (3.50-5.40) Hemoglobin 12.4 g/dL (12.0-15.5) Hematocrit 38.2 % (36.0-47.0) Mean Corpuscular Volume 93 fL (79-100) Mean Corpuscular Hemoglobin 30 pg (25-35) Mean Corpuscular Hemoglobin Concent 33 g/dL (31-37) Red Cell Distribution Width 17.8 % (11.5-14.5) Platelet Count 244 x10^3/uL (140-400) Neutrophils (%) (Auto) 87 % (31-73) Lymphocytes (%) (Auto) 5 % (24-48) Monocytes (%) (Auto) 7 % (0-9) Eosinophils (%) (Auto) 0 % (0-3) Basophils (%) (Auto) 0 % (0-3) Neutrophils # (Auto) 6.2 x10^3/uL (1.8-7.7) Lymphocytes # (Auto) 0.4 x10^3/uL (1.0-4.8) Monocytes # (Auto) 0.5 x10^3/uL (0.0-1.1) Eosinophils # (Auto) 0.0 x10^3/uL (0.0-0.7) Basophils # (Auto) 0.0 x10^3/uL (0.0-0.2) Segmented Neutrophils % 84 % (35-66) Lymphocytes % 9 % (24-48) Monocytes % 6 % (0-10) Basophils % 1 % (0-3) Platelet Estimate Adequate (ADEQUATE) Anisocytosis Slight Sodium Level 143 mmol/L (136-145) Potassium Level 3.7 mmol/L (3.5-5.1) Chloride Level 104 mmol/L (98-107) Carbon Dioxide Level 25 mmol/L (21-32) Anion Gap 14 (6-14) Blood Urea Nitrogen 18 mg/dL (7-20) Creatinine 0.8 mg/dL (0.6-1.0) Estimated GFR (Cockcroft-Gault) 72.7 BUN/Creatinine Ratio 23 (6-20) Glucose Level 79 mg/dL (70-99) Calcium Level 8.4 mg/dL (8.5-10.1) Magnesium Level 1.9 mg/dL (1.8-2.4) Total Bilirubin 0.7 mg/dL (0.2-1.0) Aspartate Amino Transf (AST/SGOT) 18 U/L (15-37) Alanine Aminotransferase (ALT/SGPT) 12 U/L (14-59) Alkaline Phosphatase 93 U/L (46-116) Creatine Kinase 37 U/L (26-192) Creatine Kinase MB (Mass) 1.7 ng/mL (0.0-3.6) Creatine Kinase MB Relative Index % (0-4) Troponin I Quantitative < 0.017 ng/mL (0.000-0.055) Total Protein 6.0 g/dL (6.4-8.2) Albumin 2.6 g/dL (3.4-5.0) Albumin/Globulin Ratio 0.8 (1.0-1.7) Glucose (Fingerstick) 79 mg/dL (70-99) 63 mg/dL (70-99) Images Images CT brain: IMPRESSION: 1. Large masslike density in the left frontal lobe with surrounding edema causing mass effect suspicious for underlying mass/malignancy or metastasis. Recommend MRI with and without contrast for further evaluation if clinically feasible. 2. No acute fracture of the cervical spine. Correlate clinically. 3. Multiple enlarged cervical and partially visualized mediastinal lymph nodes probably metastasis. Electronically signed by: Boone Cruz MD (12/19/2018 11:52 AM) [id number] CXR: Impression: Interval increased opacification of the right upper lung field in this patient with a known mass. This may represent atelectasis and/or increase in size of the left upper lung mass in the interval. VTE Prophylaxis Ordered VTE Prophylaxis Devices: No VTE Pharmacological Prophylaxi: No Assessment/Plan Assessment/Plan A: found down at home metastatic lung cancer possible seizure possible rhabdomyolysis P: admit, consult palliative care and oncology for goals Keyshawn CARPENTER MD Dec 19, 2018 17:56
[2018-12-19 19:15] VITALS: BP 114/67
[2018-12-19] MEDS: CYCLOBENZAPRINE 10 MG TABLET. PO SCH (21:00)
[2018-12-19] MEDS: AMINO AC 3%/ELECTROLYTE/GLYCER 1,000 ML IV SCH (22:43)
[2018-12-19 23:15] VITALS: BP 112/61
[2018-12-20 03:15] VITALS: BP 148/79
[2018-12-20] MEDS: AMINO AC 3%/ELECTROLYTE/GLYCER 1,000 ML IV SCH (06:30)
--- NOTE | 2018-12-20 06:38 | NUR ---
Informed during shift report that pt refuses to have oxygen on at this time. Attempted to talk with pt and inform of importance of having it on and informed of possible complications with family in room and pt still refuses at this time. Pt states her head hurts when she wears O2 and she does not want in her nose. Informed pt that we could get her a mask to wear however pt still refuses. Pt monitored during the noc and pt with O2 saturation between 72-80% on RA. Pt with nonproductive cough noted. Will continue to monitor. Message left with answering service to update Physician on pt's status.
[2018-12-20] MEDS: PANTOPRAZOLE 40 MG TABLET.DR. PO SCH (07:30)
[2018-12-20 07:36] VITALS: BP 157/84
[2018-12-20] MEDS: DEXAMETHASONE 4 MG TABLET PO SCH (08:38)
[2018-12-20] MEDS: SENNOSIDES/DOCUSATE 8.6/50MG TABLET. PO SCH (08:39)
--- NOTE | 2018-12-20 09:12 | CONS ---
DATE OF CONSULTATION: 12/19/2018 MEDICAL ONCOLOGY CONSULTATION REQUESTING PHYSICIAN: Katya Harmon MD REASON FOR CONSULTATION: Stage 4 lung cancer with progressively worsening malignancy. HISTORY OF PRESENT ILLNESS: The patient is a 63-year-old female who was diagnosed with stage 4 adenocarcinoma of the lung by a biopsy of the right neck mass on 01/09/2017. She received chemotherapy with carboplatin and Alimta from 02/18/2017. She had disease progression and Taxotere was initiated on 02/01/2018. She received 12 cycles of Taxotere with the last cycle given on 09/20/2018. CT scan on 10/04/2018 revealed worsening left perihilar lung mass, increasing mediastinal and bilateral hilar lymphadenopathy and mediastinal lymphadenopathy and possible lymphangitic carcinomatosis in the right perihilar region and left perihilar region. Hence chemotherapy was discontinued and had recommended hospice, but she was not ready for it and she has been on supportive care only. She sustained a fall and the patient was found on the floor on the morning of 12/19/2018 by her . She was brought into the ER and a CT scan of the head on 12/19/2016 revealed large mass-like density in the left frontal lobe with surrounding edema causing mass effect suspicious for malignancy. X-ray revealed opacification of the right upper lung field and increase in size of the left upper lobe lung mass. PAST MEDICAL HISTORY: Arthritis, diabetes, and hypertension. FAMILY HISTORY: Positive for diabetes, heart disease, hypertension, ovarian cancer and prostate cancer. SOCIAL HISTORY: She has a history of smoking 3 packs a day. REVIEW OF SYSTEMS: A 12-point review of system was performed. Pertinent positives are mentioned in the history of present illness. Rest of the system review is negative. PHYSICAL EXAMINATION: GENERAL APPEARANCE: The patient is a 63-year-old female who is in no acute cardiorespiratory distress. VITAL SIGNS: Blood pressure 135/72, temperature 98.1. HEENT: Atraumatic, normocephalic. EYES: No icterus. NECK: Supple. CHEST: Bilaterally symmetrical. HEART: S1, S2 normal. ABDOMEN: Soft, nontender. CENTRAL NERVOUS SYSTEM: She is drowsy, lethargic, but easily arousable, confused at times. MUSCULOSKELETAL: No joint effusions. PSYCHOLOGIC: Flat affect. LABORATORY DATA: WBC 7.1, hemoglobin 12.4, platelet count 244. Creatinine 0.8, albumin 2.6. IMPRESSION AND PLAN: 1. Stage 4 lung cancer with progressively worsening malignancy in the lungs and now with metastasis to the brain on 12/19/2018. She was diagnosed on 01/09/2017 and chemotherapy was discontinued on 09/20/2018. She had evidence of disease progression and she chose supportive care only. Her malignancy has progressed and her functional status has declined and I would recommend hospice. I discussed with the ER physician. I also had a meeting with her family today and they all agree with the plan and the patient also agrees with hospice. 2. Brain metastasis noted on CT scan of the head on 12/19/2018. Her functional status is very poor. I would recommend to proceed with hospice and she agrees. CARLOS MANCERA MD DR: SHALA/joseph JOB#: [id number] / [id number]
--- NOTE | 2018-12-20 11:30 | PDOC ---
PROGRESS NOTES Subjective Subjective HPI - f/u of Stage 4 lung cancer ROS - no CP Objective Objective Vital Signs Date Time Temp Pulse Resp B/P (MAP) Pulse Ox O2 Delivery O2 Flow Rate FiO2 12/20/18 08:20 Room Air 12/20/18 07:36 97.2 115 20 157/84 (108) 73 97.2 Intake and Output 12/20/18 07:00 Intake Total 1240 ml Balance 1240 ml Intake Oral 240 ml IV Total 1000 ml # Voids 4 Physical Exam Heart: Normal S1, Normal S2 General: Alert, No acute distress Lungs: Clear to auscultation Assessment Assessment Problems Medical Problems: (1) Altered mental status Status: Acute (2) Metastasis Status: Acute IMPRESSION AND PLAN: 1. Stage 4 lung cancer with progressively worsening malignancy in the lungs and now with metastasis to the brain on 12/19/2018. She was diagnosed on 01/09/2017 and chemotherapy was discontinued on 09/20/2018. She had evidence of disease progression and she chose supportive care only. Her malignancy has progressed and her functional status has declined and I would recommend hospice. I discussed with the ER physician. I also had a meeting with her family and they all agree with the plan and the patient also agrees with hospice. Palliative care consulted. 2. Brain metastasis noted on CT scan of the head on 12/19/2018. Her functional status is very poor. I would recommend to proceed with hospice and she agrees. Comment Review of Relevant I have reviewed the following items alma (where applicable) has been applied. Labs Laboratory Tests Test 12/19/18 11:20 12/19/18 13:58 12/19/18 16:58 12/19/18 20:35 White Blood Count 7.1 x10^3/uL (4.0-11.0) Red Blood Count 4.10 x10^6/uL (3.50-5.40) Hemoglobin 12.4 g/dL (12.0-15.5) Hematocrit 38.2 % (36.0-47.0) Mean Corpuscular Volume 93 fL (79-100) Mean Corpuscular Hemoglobin 30 pg (25-35) Mean Corpuscular Hemoglobin Concent 33 g/dL (31-37) Red Cell Distribution Width 17.8 % (11.5-14.5) Platelet Count 244 x10^3/uL (140-400) Neutrophils (%) (Auto) 87 % (31-73) Lymphocytes (%) (Auto) 5 % (24-48) Monocytes (%) (Auto) 7 % (0-9) Eosinophils (%) (Auto) 0 % (0-3) Basophils (%) (Auto) 0 % (0-3) Neutrophils # (Auto) 6.2 x10^3/uL (1.8-7.7) Lymphocytes # (Auto) 0.4 x10^3/uL (1.0-4.8) Monocytes # (Auto) 0.5 x10^3/uL (0.0-1.1) Eosinophils # (Auto) 0.0 x10^3/uL (0.0-0.7) Basophils # (Auto) 0.0 x10^3/uL (0.0-0.2) Segmented Neutrophils % 84 % (35-66) Lymphocytes % 9 % (24-48) Monocytes % 6 % (0-10) Basophils % 1 % (0-3) Platelet Estimate Adequate (ADEQUATE) Anisocytosis Slight Sodium Level 143 mmol/L (136-145) Potassium Level 3.7 mmol/L (3.5-5.1) Chloride Level 104 mmol/L (98-107) Carbon Dioxide Level 25 mmol/L (21-32) Anion Gap 14 (6-14) Blood Urea Nitrogen 18 mg/dL (7-20) Creatinine 0.8 mg/dL (0.6-1.0) Estimated GFR (Cockcroft-Gault) 72.7 BUN/Creatinine Ratio 23 (6-20) Glucose Level 79 mg/dL (70-99) Calcium Level 8.4 mg/dL (8.5-10.1) Magnesium Level 1.9 mg/dL (1.8-2.4) Total Bilirubin 0.7 mg/dL (0.2-1.0) Aspartate Amino Transf (AST/SGOT) 18 U/L (15-37) Alanine Aminotransferase (ALT/SGPT) 12 U/L (14-59) Alkaline Phosphatase 93 U/L (46-116) Creatine Kinase 37 U/L (26-192) Creatine Kinase MB (Mass) 1.7 ng/mL (0.0-3.6) Creatine Kinase MB Relative Index % (0-4) Troponin I Quantitative < 0.017 ng/mL (0.000-0.055) Total Protein 6.0 g/dL (6.4-8.2) Albumin 2.6 g/dL (3.4-5.0) Albumin/Globulin Ratio 0.8 (1.0-1.7) Glucose (Fingerstick) 79 mg/dL (70-99) 63 mg/dL (70-99) Lactic Acid Level 0.8 mmol/L (0.4-2.0) Myoglobin 42 ng/mL (9-82) Test 12/19/18 20:59 12/20/18 07:13 Glucose (Fingerstick) 80 mg/dL (70-99) 103 mg/dL (70-99) Laboratory Tests Test 12/19/18 13:58 12/19/18 16:58 12/19/18 20:35 12/19/18 20:59 Glucose (Fingerstick) 79 mg/dL (70-99) 63 mg/dL (70-99) 80 mg/dL (70-99) Lactic Acid Level 0.8 mmol/L (0.4-2.0) Myoglobin 42 ng/mL (9-82) Test 12/20/18 07:13 Glucose (Fingerstick) 103 mg/dL (70-99) Medications Current Medications Sodium Chloride 1,000 ml @ 1,000 mls/hr 1X ONCE IV Last administered on 12/19/18at 11:32; Start 12/19/18 at 10:45; Stop 12/19/18 at 11:44; Status DC Ondansetron HCl (Zofran) 4 mg 1X ONCE IV Last administered on 12/19/18at 11:33; Start 12/19/18 at 10:45; Stop 12/19/18 at 10:46; Status DC Morphine Sulfate (Morphine Sulfate) 4 mg PRN Q2HR PRN IV PAIN; Start 12/19/18 at 12:30; Stop 12/20/18 at 18:00 Cyclobenzaprine HCl (Flexeril) 10 mg HS PO ; Start 12/19/18 at 21:00 Dexamethasone (Decadron) 8 mg DAILY PO ; Start 12/20/18 at 09:00 Senna/Docusate Sodium (Senna Plus) 1 tab DAILY PO ; Start 12/20/18 at 09:00 Pantoprazole Sodium (Protonix) 40 mg DAILYAC PO ; Start 12/20/18 at 07:30 Amino Acids/ Glycerin/ Electrolytes 1,000 ml @ 80 mls/hr [id number] IV Last administered on 12/19/18at 22:43; Start 12/19/18 at 18:00 Active Scripts Active Reported Protonix Packet (Pantoprazole Sodium) 40 Mg Granpkt.dr 40 Mg PO DAILY Dexamethasone 4 Mg Tablet 2 Tab PO DAILY Cyclobenzaprine Hcl 10 Mg Tablet 1 Tab PO HS Stool Soft-Stimulant Lax Tab (Sennosides/Docusate Sodium) 1 Each Tablet 1 Each PO DAILY Vitals/I & O Vital Sign - Last 24 Hours 12/19/18 12/19/18 12/19/18 12/19/18 11:30 12:00 12:30 13:08 Pulse 100 100 100 104 Resp 20 20 14 20 Pulse Ox 86 75 81 12/19/18 12/19/18 12/19/18 12/19/18 14:00 15:20 19:15 20:00 Temp 97.7 98.1 97.4 97.7 98.1 97.4 Pulse 105 105 108 Resp 24 28 24 B/P (MAP) 123/77 (92) 135/72 (93) 114/67 (83) Pulse Ox 84 84 75 O2 Delivery Room Air Room Air Room Air Room Air 12/19/18 12/20/18 12/20/18 12/20/18 23:15 03:15 07:36 08:20 Temp 98.0 97.7 97.2 98.0 97.7 97.2 Pulse 103 114 115 Resp 24 24 20 B/P (MAP) 112/61 (78) 148/79 (102) 157/84 (108) Pulse Ox 80 72 73 O2 Delivery Room Air Room Air Room Air Room Air Intake and Output 12/19/18 12/19/18 12/20/18 15:00 23:00 07:00 Intake Total 1000 ml 240 ml 0 ml Balance 1000 ml 240 ml 0 ml CARLOS MANCERA MD Dec 20, 2018 11:30
[2018-12-20 11:46] VITALS: BP 160/82
[2018-12-20] MEDS: MORPHINE SULFATE 4 MG/ML VIAL. IV PRN ×2 (12:30→18:00)
--- NOTE | 2018-12-20 12:58 | NUR ---
SW consulted to assist with dc planning. Chart reviewed and discussed with RN. SW spoke with pt , pt's , Morgan, phone: [phone] and pt's children, Margi and Eric. They are agreeable to do hospice but states they are not able to provide pt the care she needs at home. Pt's reports pt had not eaten in the last five days and currently per RN refusing to take PO medications. Pt is getting IV morphine and had declined to wear 02 this morning. Pt's eyes are closed during SW visit and pt's state pt has not been herself. SW discussed hospice options and insurance coverage. Pt's family is agreeable in hospice eval for potential inpatient hospice placement at [facility]. Plan 1. [facility] phoned and faxed referral to hospice, Pt acceptance and admission pending 2. Yaritza from hospice will do bedside eval at 1500 today, pt's notified. Discussed with RN.
[2018-12-20 15:10] VITALS: BP 92/52
--- NOTE | 2018-12-20 17:23 | PDOC ---
PROGRESS NOTES Subjective She has been accepted at hospice house in [facility] but 4th on wait list. Family given option of taking her home Objective Afebrile General: drowsy after morphine Heart: beating Lungs: non labored Abd: obese, soft, bowel sounds present Ext: no cyanosis Vital Signs Vital Signs Date Time Temp Pulse Resp B/P (MAP) Pulse Ox O2 Delivery O2 Flow Rate FiO2 12/20/18 15:10 97.7 117 22 92/52 (65) 76 Room Air 97.7 I & O Intake and Output 12/20/18 07:00 Intake Total 1240 ml Balance 1240 ml Intake Oral 240 ml IV Total 1000 ml # Voids 4 Assessment and Plan metastatic lung cancer to brain - accepted at [facility], 4th on wait list Keyshawn CARPENTER MD Dec 20, 2018 17:23
[2018-12-20] MEDS ORDERED: MORPHINE SULFATE 4 MG/ML VIAL. IV PRN (18:30)
[2018-12-20 19:50] VITALS: BP 142/77
--- NOTE | 2018-12-20 20:22 | NUR ---
RN informed patient and family of her oxygen saturation of 56% on RA. Patient is refusing oxygen at this time and patients stated that she doesn't want the oxygen on. RN will continue to monitor patient closely.
[2018-12-20] MEDS: CYCLOBENZAPRINE 10 MG TABLET. PO SCH (21:00)
[2018-12-20] MEDS: MORPHINE SULFATE 20 MG/ML CONC SOLUTION. SL PRN (21:20)
[2018-12-20 23:38] VITALS: BP 146/87
[2018-12-21 03:07] VITALS: BP 143/93
[2018-12-21] MEDS: PANTOPRAZOLE 40 MG TABLET.DR. PO SCH (06:47)
[2018-12-21 07:15] VITALS: BP 206/161
[2018-12-21] MEDS: DEXAMETHASONE 4 MG TABLET PO SCH (09:00)
[2018-12-21] MEDS: SENNOSIDES/DOCUSATE 8.6/50MG TABLET. PO SCH (09:00)
[2018-12-21] MEDS: MORPHINE SULFATE 20 MG/ML CONC SOLUTION. SL PRN (10:16)
[2018-12-21 11:20] VITALS: BP 146/80
--- NOTE | 2018-12-21 12:29 | PDOC ---
PROGRESS NOTES Subjective Subjective Patient resting quietly, minimally responsive. Objective Objective Vital Signs Date Time Temp Pulse Resp B/P (MAP) Pulse Ox O2 Delivery O2 Flow Rate FiO2 12/21/18 11:16 20 91 Simple Mask 12.0 12/21/18 07:15 98.0 114 206/161 (176) 98.0 Intake and Output 12/21/18 07:00 Intake Total 0 ml Balance 0 ml Intake Oral 0 ml # Voids 1 Physical Exam Abdomen: Normal bowel sounds, Soft, No tenderness Heart: Regular rate Extremities: Other General: No acute distress Lungs: Other (coarse BS throughout) Assessment Assessment Problems Medical Problems: (1) Altered mental status Status: Acute (2) Metastasis Status: Acute Plan Plan of Care 1. Metastatic lung cancer - brain metastasis found this admission. To transfer to hospice house this evening, continue comfort care her until then. Morphine and Atropine prn ordered. Comment Review of Relevant I have reviewed the following items alma (where applicable) has been applied. Labs Laboratory Tests Test 12/19/18 13:58 12/19/18 16:58 12/19/18 20:35 12/19/18 20:59 Glucose (Fingerstick) 79 mg/dL (70-99) 63 mg/dL (70-99) 80 mg/dL (70-99) Lactic Acid Level 0.8 mmol/L (0.4-2.0) Myoglobin 42 ng/mL (9-82) Test 12/20/18 07:13 12/20/18 11:18 12/21/18 07:35 Glucose (Fingerstick) 103 mg/dL (70-99) 118 mg/dL (70-99) 110 mg/dL (70-99) Laboratory Tests Test 12/21/18 07:35 Glucose (Fingerstick) 110 mg/dL (70-99) Medications Current Medications Sodium Chloride 1,000 ml @ 1,000 mls/hr 1X ONCE IV Last administered on 12/19/18at 11:32; Start 12/19/18 at 10:45; Stop 12/19/18 at 11:44; Status DC Ondansetron HCl (Zofran) 4 mg 1X ONCE IV Last administered on 12/19/18at 11:33; Start 12/19/18 at 10:45; Stop 12/19/18 at 10:46; Status DC Morphine Sulfate (Morphine Sulfate) 4 mg PRN Q2HR PRN IV PAIN Last administered on 12/20/18at 18:00; Start 12/19/18 at 12:30; Stop 12/20/18 at 18:00; Status DC Cyclobenzaprine HCl (Flexeril) 10 mg HS PO ; Start 12/19/18 at 21:00 Dexamethasone (Decadron) 8 mg DAILY PO ; Start 12/20/18 at 09:00 Senna/Docusate Sodium (Senna Plus) 1 tab DAILY PO ; Start 12/20/18 at 09:00 Pantoprazole Sodium (Protonix) 40 mg DAILYAC PO ; Start 12/20/18 at 07:30 Amino Acids/ Glycerin/ Electrolytes 1,000 ml @ 80 mls/hr [id number] IV Last administered on 12/19/18at 22:43; Start 12/19/18 at 18:00; Stop 12/20/18 at 18:18; Status DC Morphine Sulfate (Roxanol Conc) 10 mg PRN Q3HRS PRN SL PAIN Last administered on 12/21/18at 10:16; Start 12/20/18 at 18:30 Morphine Sulfate (Morphine Sulfate) 4 mg PRN Q2HR PRN IV PAIN; Start 12/20/18 at 18:30 Active Scripts Active Reported Protonix Packet (Pantoprazole Sodium) 40 Mg Granpkt.dr 40 Mg PO DAILY Dexamethasone 4 Mg Tablet 2 Tab PO DAILY Cyclobenzaprine Hcl 10 Mg Tablet 1 Tab PO HS Stool Soft-Stimulant Lax Tab (Sennosides/Docusate Sodium) 1 Each Tablet 1 Each PO DAILY Vitals/I & O Vital Sign - Last 24 Hours 12/20/18 12/20/18 12/20/18 12/20/18 12:30 13:00 15:10 18:00 Temp 97.7 97.7 Pulse 117 Resp 22 B/P (MAP) 92/52 (65) Pulse Ox 76 76 76 76 O2 Delivery Room Air Room Air Room Air Room Air 12/20/18 12/20/18 12/20/18 12/20/18 19:45 19:50 21:20 21:46 Temp 98.1 98.1 Pulse 121 Resp 20 B/P (MAP) 142/77 (98) Pulse Ox 55 77 O2 Delivery Mask Room Air Simple Mask Simple Mask O2 Flow Rate 12.0 12/20/18 12/21/18 12/21/18 12/21/18 23:38 03:07 07:15 08:00 Temp 98.2 97.9 98.0 98.2 97.9 98.0 Pulse 125 127 114 Resp 20 12 20 B/P (MAP) 146/87 (106) 143/93 (110) 206/161 (176) Pulse Ox 87 83 91 O2 Delivery Simple Mask Simple Mask Simple Mask Mask O2 Flow Rate 12.0 12.0 12.0 12/21/18 12/21/18 10:16 11:16 Resp 30 20 Pulse Ox 91 O2 Delivery Simple Mask Simple Mask O2 Flow Rate 12.0 12.0 Intake and Output 12/20/18 12/20/18 12/21/18 15:00 23:00 07:00 Intake Total 0 ml 0 ml 0 ml Balance 0 ml 0 ml 0 ml DIDI MEADE MD Dec 21, 2018 12:29
[2018-12-21] MEDS ORDERED: ATROPINE 0.5 MG/5 ML DISP.SYRINGE. IV PRN (12:30)
[2018-12-21] MEDS ORDERED: MORP100S3 SL (12:32)
[2018-12-21] MEDS ORDERED: ATROPINE SULFATE IV (12:32)
--- NOTE | 2018-12-21 12:33 | SNU/HH DC ---
DISCHARGE ORDERS DISCHARGE INFORMATION: DISCHARGE DATE: Dec 21, 2018 FINAL DIAGNOSIS Problems Medical Problems: (1) Altered mental status Status: Acute (2) Metastasis Status: Acute CONDITION ON DISCHARGE: Stable CODE STATUS: Code Status: DNR/DNI HOSPICE: HOSPICE: Yes HOSPICE EVAL & TREAT: Yes POST DISCHARGE ORDERS: ACTIVITY ORDERS: Activity as tolerated WEIGHT BEARING STATUS: As tolerated TREATMENT/EQUIPMENT ORDERS: ADAPTIVE EQUIPMENT NEEDED: None DISCHARGE MEDICATIONS: Home Meds Active Scripts Morphine Sulfate (MORPHINE SULFATE) 100 Mg/5 Ml Solution, 10 MG SL PRN Q3HRS PRN for PAIN for 30 Days, MISC Prov:DIDI MEADE MD 12/21/18 [Atropine Sulfate] 0.1 MG/1 ML DISP.SYRIN No Conflict Check, 0.5 MG IV PRN Q6HRS PRN for secretions, DIS.SYR Prov:DIDI MEADE MD 12/21/18 Reported Medications Dexamethasone (DEXAMETHASONE) 4 Mg Tablet, 2 TAB PO DAILY for md order, #8 TAB 04/04/18 Discontinued Reported Medications Pantoprazole Sodium (PROTONIX PACKET) 40 Mg Granpkt.dr, 40 MG PO DAILY for md order, TAB 04/04/18 Cyclobenzaprine Hcl (CYCLOBENZAPRINE HCL) 10 Mg Tablet, 1 TAB PO HS for muscle spasms, #90 TAB 04/04/18 Sennosides/Docusate Sodium (STOOL SOFT-STIMULANT LAX TAB) 1 Each Tablet, 1 EACH PO DAILY for md order, TAB 04/04/18 [magic mouthwash] No Conflict Check, 10 ML PO TID PRN for PAIN 04/04/18 Colesevelam Hcl (WELCHOL) 625 Mg Tablet, 1875 MG PO TID for md order, TAB 04/04/18 Folic Acid (FOLIC ACID) 1 Mg Tablet, 1 TAB PO DAILY for md order, #90 TAB 1 Refill 04/04/18 Ezetimibe/Simvastatin (VYTORIN 10-40 MG TABLET) 1 Each Tablet, 1 TAB PO HS for md order, #30 TAB 5 Refills 04/04/18 Ferrous Sulfate (FERROUS SULFATE) 325 Mg Tablet, 1 TAB PO DAILY for anemia, #30 TAB 3 Refills 04/04/18 Cholecalciferol (Vitamin D3) (VITAMIN D3) 1,000 Unit Tablet, 2 TAB PO DAILY for md order, #30 TAB 5 Refills 04/04/18 [place]-3S/Dha/Epa/Fish Oil (Fish Oil 1,000 mg Softgel) 1 Each Capsule, 1 EACH PO TID for md order, CAP 04/04/18 Fluconazole (FLUCONAZOLE) 100 Mg Tablet, 1 TAB PO DAILY for md order, #10 TAB 04/04/18 Gemfibrozil (GEMFIBROZIL) 600 Mg Tablet, 1 TAB PO BID for md order, #60 TAB 5 Refills 04/04/18 DIDI MEADE MD Dec 21, 2018 12:33
--- NOTE | 2018-12-21 14:07 | DS ---
DATE OF DISCHARGE: 12/21/2018 CHIEF COMPLAINT: Fall at home. HISTORY OF PRESENT ILLNESS: The patient is a 63-year-old female with metastatic adenocarcinoma of the lung. She had been undergoing chemotherapy for treatment, but this was discontinued in October when she was found to have rapidly advancing disease in spite of the chemotherapy. Her found her on the floor at home on the morning of admission. It was unclear how long she had been down. Evaluation in the emergency room included a CAT scan of the head, which found a large brain mass, thought to be a metastasis. Treatment was started and she was admitted for further care. HOSPITAL COURSE: The patient was seen in consultation by Dr. Oglesby. The care options were discussed with patient and family, and they were in agreement with hospice care for her. A place was found for her at hospice house and she is to transfer there this evening. She is fairly comfortable with intravenous morphine and Roxanol as needed. Atropine has been added to help with excessive secretions. She is hypoxic but the oxygen mask is uncomfortable for her, so she is more comfortable without it. She is not taking any oral food or fluids at this time. FINAL DIAGNOSIS: Metastatic adenocarcinoma of the lung. DISCHARGE MEDICATIONS: Atropine 0.5 mg intravenous q.6 hours. p.r.n., Roxanol solution 10 mg sublingual q.3 hours. p.r.n., and dexamethasone 2 tablets daily if able to swallow. DIDI MEADE MD DR: MIRNA/joseph JOB#: [id number] / [id number] MTDD
--- NOTE | 2018-12-21 22:50 | NUR ---
Report called to Michelle SINCLAIR at [facility] at 2001. Transport arrived on unit at 2100. Patient belongings packed and sent with patient. media monitor removed from patient and placed at nurses station. Address given to Morgan and daughter who remained at bedside. Upon exit of unit- this RN mentioned address to Morgan- overheard by transport and questioned as to correct address (informed by transport that the address they had from dispatch was to an address on [address]) This RN called [facility] for verification- Patient was to be sent to facility located near [facility] (as per address given to Morgan). Zaida at [facility] verified this over phone and address given to transport team.
== END 2018-12-21 21:15 | disposition hospice, inpatient (51) | DRG 55 ==
LOC: ER 10:25 → 6 SOUTH 12:14
PROVIDERS: ADMIT Family Medicine; ATTEND Family Medicine
DX: C79.31 Secondary malignant neoplasm of brain (principal); C34.90 Malignant neoplasm of unspecified part of unspecified bronchus or lung; E78.00 Pure hypercholesterolemia, unspecified; E11.9 Type 2 diabetes mellitus without complications; I10 Essential (primary) hypertension; E78.5 Hyperlipidemia, unspecified; K21.9 Gastro-esophageal reflux disease without esophagitis; I25.10 Atherosclerotic heart disease of native coronary artery without angina pectoris; J44.9 Chronic obstructive pulmonary disease, unspecified; Z51.5 Encounter for palliative care; R09.02 Hypoxemia; M19.90 Unspecified osteoarthritis, unspecified site; W18.39XA Other fall on same level, initial encounter; Y93.89 Activity, other specified; Y92.89 Other specified places as the place of occurrence of the external cause; Y99.8 Other external cause status; Z88.1 Allergy status to other antibiotic agents; Z88.2 Allergy status to sulfonamides; Z88.8 Allergy status to other drugs, medicaments and biological substances; Z87.11 Personal history of peptic ulcer disease; Z83.3 Family history of diabetes mellitus; Z87.891 Personal history of nicotine dependence; Z82.49 Family history of ischemic heart disease and other diseases of the circulatory system; Z80.41 Family history of malignant neoplasm of ovary; Z80.42 Family history of malignant neoplasm of prostate
CPT/HCPCS: 36415; 70450; 71045; 72125; 80053; 82553; 82962; 83605; 83735; 83874; 84484; 85007; 85025; 93005; 96361; 96374; J2270; J2405; J7030; 99285-25; G0378